=== PATIENT | male | born 1960 | race Caucasian/White ===

== ENCOUNTER 2023-02-08 15:33 | Outpatient (OUT) | payer OTHER, SELFPAY | END 2023-02-08 15:34 | disposition home or self-care (01) | LOC: SLEEP 15:33 | PROVIDERS: PCP Family Medicine; Visit Provider Family Medicine | DX: G47.33 Obstructive sleep apnea (adult) (pediatric) (principal); G47.11 Idiopathic hypersomnia with long sleep time | CPT/HCPCS: 95806 ==

== ENCOUNTER 2023-04-03 09:30 | Outpatient (OUT) | payer OTHER, SELFPAY ==
[2023-04-03 09:47] LABS: Basophils Absolute Auto 0.1 10^3/uL (0.0-0.1); Eosinophils Absolute Auto 0.2 10^3/uL (0.0-0.7); Eosinophils Percent Auto 2.6 % (0.9-7.0); Hematocrit 45.1 % (42.0-54.0); Hemoglobin 15.3 g/dL (14.0-18.0); Immature Granulocytes Abs Auto 0.04 10^3/uL (0.00-0.03); Immature Granulocytes Pct Auto 0.5 % (0.0-0.5); Lymphocytes Absolute Auto 1.5 10^3/uL (1.2-3.8); Lymphocytes Percent Auto 20.2 % (20.5-60.0); Mean Corpuscular HGB Conc 33.9 g/dL (29.9-35.2); Mean Corpuscular Hemoglobin 31.3 pg (25.9-34.0); Mean Corpuscular Volume 92.2 fL (80.0-94.0); Mean Platelet Volume 8.9 fL (9.5-13.5); Monocytes Absolute Auto 0.9 10^3/uL (0.3-0.8); Monocytes Percent Auto 11.5 % (1.7-12.0); Neutrophils Absolute Auto 4.7 10^3/uL (1.4-6.5); Neutrophils Percent Auto 64.2 % (43.0-75.0); Platelet Count 262 10^3/uL (150-450); Red Blood Count 4.89 10^6/uL (4.70-6.10); Red Cell Distribution Width 13.1 % (11.0-15.0); White Blood Count 7.4 10^3/uL (4.0-11.0)
[2023-04-03 11:24] LABS: Prostate Specific Antigen Scrn 0.16 ng/mL (<=4.00)
[2023-04-04 12:09] LABS: Testosterone 700 ng/dL (264-916)
== END 2023-04-03 09:31 | disposition home or self-care (01) ==
LOC: LAB 09:31
PROVIDERS: PCP Family Medicine; Visit Provider Urology
DX: E29.1 Testicular hypofunction (principal); D64.9 Anemia, unspecified
CPT/HCPCS: 36415; 84403; 85025; G0103

== ENCOUNTER 2023-09-25 06:35 | Outpatient (OUT) | payer OTHER, SELFPAY ==
--- OUTSIDE RECORDS SUMMARY | 2023-09-25 06:38 | XMS_ITS | CCD ---
Author Organization [facility] Care Team Providers Care Estate Attorney Name Role Phone LAITH DICKERSON Primary Care Physician [phone] Rani Fraga Unavailable WELLS ., DR BOYER Attending Unavailable WELLS ., DR BOYER Consulting Unavailable FURLONG, DR LAITH Hall Primary Care Unavailable WELLS ., DR BOYER Admitting Unavailable WELLS ., DR BOYER Attending Unavailable FURLONG, DR LAITH Hall Primary Care Unavailable WELLS ., DR BOYER Consulting Unavailable WELLS ., DR BOYER Admitting Unavailable WELLS ., DR BOYRE Attending Unavailable WELLS ., DR BOYER Consulting Unavailable FURLONG, DR LAITH Hall Primary Care Unavailable WELLS ., DR BOYER Admitting Unavailable WELLS ., DR BOYER Attending Unavailable WELLS ., DR BOYER Consulting Unavailable FURLONG, DR LAITH Hall Primary Care Unavailable WELLS ., DR BOYER Admitting Unavailable FURLONG, DR LAITH Hall Admitting Unavailable FURLONG, DR LAITH Hall Attending Unavailable FURLONG, DR LAITH Hall Consulting Unavailable FURLONG, DR LAITH Hall Primary Care Unavailable Furlong DO, Laith Hall Primary Care Provider WELLS, Syed R Attending Unavailable WELLS, Syed R Attending Unavailable WELLS, Syed R Attending Unavailable WELLS, Syed Sinclair Admitting Unavailable WELLS, Syed Sinclair Attending Unavailable WELLS, Syed R Attending Unavailable WELLS, Syed R Attending Unavailable WELLS, ySed R Attending Unavailable WELLS, Syed R Attending Unavailable WELLS, Syed R Attending Unavailable WELLS, Syed R Attending Unavailable WELLS, Syed R Attending Unavailable WELLS, Syed R Attending Unavailable WELLS, Syed R Attending Unavailable WELLS, Syed R Attending Unavailable WELLS, Syed R Attending Unavailable WELLS, Syed R Attending Unavailable WELLS, Syed R Attending Unavailable Allergies Allergy Classification Reported Allergen(s) Allergy Type Date of Onset Reaction(s) Facility (20 sources) levoFLOXacin; Translations: [levofloxacin] Drug Allergy 4 muscle cramps, Other (See Comments) [facility] (1 source) levoFLOXacin Drug Allergy 1 [facility] Medications Current Medications Medication Drug Class(es) Dates Sig (Normalized) Sig (Original) acyclovir 400 mg oral tablet (3 sources) Herpesvirus Nucleoside Analog DNA Polymerase Inhibitor, Herpes Simplex Virus Nucleoside Analog DNA Polymerase Inhibitor, Herpes Zoster Virus Nucleoside Analog DNA Polymerase Inhibitor Start: 08-08-2022 End: 05-04-2023 acyclovir (ZOVIRAX) 400 mg tablet TAKE 1 TABLET TWICE A DAY 180 tablet 1 05/04/2023 Active Acyclovir Active [id number] 200 actuat albuterol 0.09 mg/actuat metered dose inhaler (2 sources) beta2-Adrenergic Agonist Start: 06-01-2022 take 2 puff(s) by mouth four times daily albuterol (PROVENTIL HFA;VENTOLIN HFA) 90 mcg/actuation inhaler inhale 2 puffs by mouth and INTO THE LUNGS four times a day if needed 0 06/01/2022 Active Start: 06-01-2022 take 2 puff(s) by in halation four times daily as needed Albuterol Sulfate HFA 108 (90 Base) MCG/ACT 2 puffs Inhalation 4 times a day prn May, Active Albuterol (Eqv-ProAir HFA) 90 mcg/inh inhalation aerosol (6 sources) Start: 09-05-2022 Albuterol (Eqv-ProAir HFA) 90 mcg/inh inhalation aerosol Refill(s) 0 Start Date: 09/05/22 Status: Ordered amLODIPine 10 mg oral tablet (20 sources) Dihydropyridine Calcium Channel Preston Start: 02-20-2019 take 1 tablet by mouth once daily amLODIPine 10 mg Tab 10 mg = 1 tab(s), Oral, Daily, High blood pressure Start Date: 02/20/19 Status: Ordered amLODIPine Besyl ate Active atorvastatin 20 mg oral tablet (20 sources) HMG-CoA Reductase Inhibitor Start: 02-20-2019 take 1 tablet by mouth once daily atorvastatin 20 mg Tab 20 mg = 1 tab(s), Oral, Daily, High cholesterol Start Date: 02/20/19 Status: Ordered Fiber Tab (19 sources) Start: 10-03-2018 take 1 tablet by mouth twice daily Fiber Tabs 1 tbs, Oral, BID, metamucil, Refills(s) 0, Constipation Start Date: 10/03/18 Status: Ordered cefuroxime 500 mg oral tablet (20 sources) Cephalosporin Antibacterial Start: 02-20-2019 take 1 tablet by mouth once daily cefuroxime 500 mg oral tablet 500 mg = 1 tab(s), Oral, Daily Start Date: 02/20/19 Status: Ordered Depo-Testosterone 200 mg/mL intramuscular solution (1 source) Start: 02-08-2021 inject 450 mg by intramuscular injection every four months Depo-Testosterone 200 mg/mL intramuscular solution 450 mg, IntraMuscular, q4wk, Dispense 3 month supply, # 10 mL, Refills(s) 3, Pharmacy: [facility], 177, cm, 10/16/20 9:03:00 EDT, Height/Length Dosing, 117, kg, 10/16/20 9:03:00 EDT, Weight Dosing Start Date: 02/08/21 Status: Ordered dicyclomine hydrochloride 20 mg oral tablet (20 sources) Anticholinergic Start: 02-20-2019 take 1 tablet by mouth twice daily dicyclomine 20 mg Tab 20 mg = 1 tab(s), Oral, BID, Other (see comment) Start Date: 02/20/19 Status: Ordered dutasteride 0.5 mg oral capsule (1 source) 5-alpha Reductase Inhibitor take 1 capsule by mouth in the morning dutasteride (AVODART) 0.5 mg capsule Take 1 capsule (0.5 mg total) by mouth in the morning. 0 Active [id number] 0.3 ml EPINEPHrine 1 mg/ml auto-injector (1 source) alpha-Adrenergic Agonist, beta-Adrenergic Agonist, Catecholamine EPINEPHrine (EPIPEN) 0.3 mg/0.3 mL auto-injector epinephrine 0.3 mg/0.3 mL injection, auto-injector 0 Active esomeprazole 40 mg delayed release oral capsule (20 sources) Proton Pump Inhibitor Start: 03-17-2023 esomeprazole (NexIUM) 40 mg capsule Indications: Gastroesophageal reflux disease without esophagitis TAKE 1 CAPSULE DAILY 90 capsule 1 03/17/2023 Active Start: 11-29-2013 take 40 mg by mouth once daily Nexium 40 mg, Oral, Daily, Refills(s) 0, Control of stomach acid Start Date: 11/29/13 Status: Ordered NexIUM 40 MG 1 d aily Active ferrous sulfate 325 mg delayed release oral tablet (20 sources) Start: 02-20-2019 take 1 tablet by mouth twice daily ferrous sulfate 325 mg oral enteric coated tablet 325 mg = 1 tab(s), Oral, BID, Anemia Start Date: 02/20/19 Status: Ordered Ferrous Sulfate 325 MG 1 daily Active Fiber (1 source) Start: 10-03-2018 take 1 tablet by mouth twice daily Fiber Tabs 1 tbs, Oral, BID, metamucil, Refills(s) 0, Constipation Start Date: 10/03/18 Status: Ordered finasteride 5 mg oral tablet (20 sources) 5-alpha Reductase Inhibitor Start: 09-28-2021 take 1 tablet by mouth once daily finasteride 5 mg Tab 5 mg = 1 tab(s), Oral, Daily, # 90 tab(s), Refills(s) 3, Pharmacy: [facility], 177, cm, 09/05/22 15:39:00 EDT, Height/Length Dosing, 109, kg, 09/05/22 15:39:00 EDT, Weight Dosing Start Date: 09/27/22 Status: Ordered Start: 09-10-2021 take 1 tablet by bibi th once daily finasteride 5 mg Tab 5 mg = 1 tab(s), Oral, Daily, # 90 tab(s), Refills(s) 3 Start Date: 09/10/21 Status: Ordered Finasteride Acti ve Fish Oils (20 sources) Start: 10-03-2018 take 1000 mg by mouth once daily Fish Oil 1,000 mg, Oral, Daily, Refill(s) 0, Prophylaxis Start Date: 10/03/18 Status: Ordered Flonase 0.05 mg/inh [place] (1 source) Start: 03-06-2015 Flonase 0.05 m g/inh [place] 2 spray(s), Nasal, Daily, Refill(s) 0, Sinus symptoms Start Date: 03/06/15 Status: Ordered fluocinolone acetonide 0.1 mg/ml topical oil (1 source) Corticosteroid Start: 10-25-2022 fluocinolone 0 .01 % oil Indications: Eczema of scalp Apply 1 application. topically in the morning and 1 application. before bedtime. 118.28 mL 1 10/25/2022 Active fluticasone propionate 0.05 mg/actuat metered dose nasal spray (20 sources) Corticosteroid Start: 08-22-2022 take 2 spray(s) nasal route once daily fluticasone propionate (FLONASE) 50 mcg/actuation nasal spray USE 2 SPRAYS NASALLY DAILY 48 g 3 08/22/2022 Active Start: 03-06-2015 Flonase 0.05 m g/inh [place] 2 spray(s), Nasal, Daily, Refill(s) 0, Sinus symptoms Start Date: 03/06/15 Status: Ordered Flonase Active hydroCHLOROthiazide 12.5 mg / lisinopril 20 mg oral tablet (20 sources) Thiazide Diuretic, Angiotensin Converting Enzyme Inhibitor Start: 11-29-2013 take 1 tablet by mouth once daily hydrochlorothiazide-lisinopril 12.5 mg-20 mg Tab 1 tab(s), Oral, Daily, Refill(s) 0, High blood pressure Start Date: 11/29/13 Status: Ordered Lisinopril-hydro CHLOROthiazide Active lisinopril 20 mg oral tablet (8 sources) Angiotensin Converting Enzyme Inhibitor Start: 05-04-2023 lisinopriL (PRINIVIL,ZESTRIL) 20 mg tablet TAKE 1 TABLET DAILY (TAKE WITH LISINOPRIL/HCTZ 20/12.5 MG DAILY) 90 tablet 1 05/04/2023 Active Start: 08-08-2022 End: 05-04-2023 lisinopril 20 mg Tab Refills (s) 0 Start Date: 09/05/22 Status: Ordered 24 hr metoprolol succinate 25 mg extended release oral tablet (20 sources) beta-Adrenergic Preston Start: 03-10-2023 metopr olol succinate XL (TOPROL XL) 25 mg 24 hr tablet TAKE 1 TABLET DAILY 90 tablet 3 03/10/2023 Active Start: 02-20-2019 take 1 tablet by bibi th once daily Metoprolol succinate 25 mg ER Tablet 25 mg, Oral, Daily, High blood pressure Start Date: 02/20/19 Status: Ordered Start: 02-20-2019 take 1 tablet by bibi th once daily Metoprolol succinate 25 mg ER Tablet 25 mg, Oral, Daily, High blood pressure Start Date: 02/20/19 Status: Ordered 24 hr mirabegron 50 mg extended release oral tablet (8 sources) beta3-Adrenergic Agonist Start: 02-21-2022 take 1 tablet by mouth once daily Myrbetriq 50 mg oral tablet, extended release 50 mg = 1 tab(s), Oral, Daily, # 90 tab(s), Refills(s) 3, Pharmacy: [facility], 177, cm, 02/21/22 16:00:00 EST, Height/Length Dosing, 109, kg, 02/21/22 16:00:00 EST, Weight Dosing Start Date: 02/21/22 Status: Ordered Start: 02-21-2022 take 1 tablet by bibi th every twenty-four hours mirabegron (MYRBETRIQ) 50 mg tablet extended release 24 hr Take 1 tablet (50 mg total) by mouth. 0 02/21/2022 Active multivitamin capsule (1 source) multivitamin capsule daily. 0 Active naproxen 500 mg oral tablet (20 sources) Nonsteroidal Anti-inflammatory Drug Start: 019 take 1 tablet by mouth once daily naproxen 500 mg Tab 500 mg = 1 tab(s), Oral, Daily, Inflammation Start Date: 02/20/19 Status: Ordered oxybutynin chloride 5 mg oral tablet (12 sources) Cholinergic Muscarinic Antagonist Start: 022 take 1 tablet by mouth at bedtime as needed oxybutynin 5 mg Tab 5 mg = 1 tab(s), Oral, Bedtime, PRN for urinary discomfort, # 30 tab(s), Refills(s) 6, Pharmacy: [facility], 177, cm, 04/30/21 8:39:00 EST, Height/Length Dosing, 117.2, kg, 04/30/21 8:39:00 EST, Weight Dosing Start Date: 04/30/21 Status: Ordered pimecrolimus 10 mg/ml topical cream (1 source) Calcineurin Inhibitor Immunosuppressant Start: 022 pimecrolimus (ELIDEL) 1 % cream Indications: Eczema, unspecified type Apply 1 application topically in the morning and 1 application before bedtime. 100 g 1 03/10/2022 Active potassium chloride 10 meq extended release oral tablet (20 sources) Start: 023 potassium chloride (K-TAB,KLOR-CON) 10 MEQ CR tablet TAKE 1 TABLET DAILY 90 tablet 3 03/13/2023 Active Start: 02-20-2019 take 1 capsule by [facility] once daily potassium chloride 10 mEq Cap-ER 10 mEq = 1 cap(s), Oral, Daily, Prophylaxis Start Date: 02/20/19 Status: Ordered Start: 02-20-2019 take 1 capsule by [facility] once daily potassium chloride 10 mEq Cap-ER 10 mEq = 1 cap(s), Oral, Daily, Prophylaxis Start Date: 02/20/19 Status: Ordered predniSONE 20 mg oral tablet (2 sources) Start: 06-01-2022 take 1 tablet by mouth in the morning, then take 1 tablet by mouth at bedtime predniSONE (DELTASONE) 20 mg tablet Take 1 tablet (20 mg total) by mouth in the morning and 1 tablet (20 mg total) before bedtime. 0 06/01/2022 Active Rapaflo unknown (1 source) tamsulosin hydrochloride 0.4 mg oral capsule (20 sources) alpha-Adrenerg ic Preston Start: 07-19-2021 take 1 capsule by mouth once daily tamsulosin 0.4 mg Cap 0.4 mg = 1 cap(s), Oral, Daily, # 90 cap(s), Refills(s) 3, Pharmacy: [facility], 177, cm, 09/05/22 15:39:00 EDT, Height/Length Dosing, 109, kg, 09/05/22 15:39:00 EDT, Weight Dosing Start Date: 10/13/22 Status: Ordered Tamsulosin HCl A ctive testosterone cypionate 200 mg/ml injectable solution (20 sources) Androgen Start: 04-24-2023 Depo-Testoster one 200 mg/mL intramuscular solution 350 mg, IntraMuscular, q4wk, # 10 mL, Refills(s) 5, Pharmacy: [facility], 177, cm, 04/24/23 15:56:00 EST, Height/Length Dosing, 109, kg, 04/24/23 15:56:00 EST, Weight Dosing Start Date: 04/24/23 Status: Ordered Start: 09-05-2022 Depo-Testoster one 200 mg/mL intramuscular solution 400 mg, IntraMuscular, q4wk, # 10 mL, Refills(s) 5, Pharmacy: [facility], 177, cm, 09/05/22 15:39:00 EDT, Height/Length Dosing, 109, kg, 09/05/22 15:39:00 EDT, Weight Dosing Start Date: 09/05/22 Status: Ordered Start: 07-22-2022 inject 350 mg by int ramuscular injection every four months Depo-Testosterone 200 mg/mL intramuscular solution 350 mg, IntraMuscular, q4wk, Dispense 3 month supply, # 10 mL, Refills(s) 2, Pharmacy: [facility], 177, cm, 02/21/22 16:00:00 EST, Height/Length Dosing, 109, kg, 02/21/22 16:00:00 EST, Weight Dosing Start Date: 07/22/22 Status: Ordered Start: 04-25-2022 inject 350 mg by int ramuscular injection every four months Depo-Testosterone 200 mg/mL intramuscular solution 350 mg, IntraMuscular, q4wk, Dispense 3 month supply, # 10 mL, Refills(s) 1, Pharmacy: [facility], 177, cm, 02/21/22 16:00:00 EST, Height/Length Dosing, 109, kg, 02/21/22 16:00:00 EST, Weight Dosing Start Date: 04/25/22 Status: Ordered Start: 11-01-2021 testosterone c ypionate (DEPO-TESTOSTERONE) 200 mg/mL injection Inject 1.8 mL (360 mg total) into the appropriate muscle. 0 11/01/2021 Active Start: 11-01-2021 inject 350 mg by int ramuscular injection every four months Depo-Testosterone 200 mg/mL intramuscular solution 350 mg, IntraMuscular, q4wk, Dispense 3 month supply, # 10 mL, Refills(s) 1, Pharmacy: [facility], 177, cm, 09/10/21 8:12:00 EDT, Height/Length Dosing, 117.2, kg, 09/10/21 8:12:00 EDT, Weight Dosing Start Date: 11/01/21 Status: Ordered Start: 02-08-2021 inject 450 mg by int ramuscular injection every four months Depo-Testosterone 200 mg/mL intramuscular solution 450 mg, IntraMuscular, q4wk, Dispense 3 month supply, # 10 mL, Refills(s) 3, Pharmacy: [facility], 177, cm, 10/16/20 9:03:00 EDT, Height/Length Dosing, 117, kg, 10/16/20 9:03:00 EDT, Weight Dosing Start Date: 02/08/21 Status: Ordered Testosterone Cyp ionate 500MG Injection q 3 weeks Active Viagra unknown (1 source) Vitamin D-3 1000MG (1 source) Vitamin D-3 1000 MG 1 daily Active Zocor unknown (1 source) Completed/Discontinued Medications Medication Drug Class(es) Dates Sig (Normalized) Sig (Original) cholecalciferol 0.125 mg oral tablet (2 sources) Vitamin D Start: 11-29-2013 take 1 tablet by mouth once daily Vitamin D3 5000 intl units oral tablet 5,000 International_Uni t = 1 tab(s), Oral, Daily, Refills(s) 0, Prophylaxis Start Date: 11/29/13 Status: Ordered cholecalciferol, vitamin D3, 2,000 units tablet daily. 0 Active tadalafil 20 mg oral tablet (20 sources) Phosphodiesterase 5 Inhibitor Start: 05-28-2021 tadalafil 20 mg Tab 20 mg = 1 tab(s), Oral, As Directed, PRN sexual activity, Take one tab prior to sexual activity. Do not exceed 20mg in 24hrs., # 30 tab(s), Refills(s) 6, Pharmacy: [id number], 177, cm, 04/24/23 15:56:00 EST, Height/Length Dosing, 109, kg, 04/24/23 15:56:00 EST, Weight Dosing Start Date: 04/24/23 Status: Ordered Start: 05-28-2021 take 1 tablet by bibi th once daily tadalafil 20 mg Tab 20 mg = 1 tab(s), Oral, Daily, # 30 tab(s), Refills(s) 6, [facility], 177, cm, 04/30/21 8:39:00 EST, Height/Length Dosing, 117.2, kg, 04/30/21 8:39:00 EST, Weight Dosing Start Date: 05/28/21 Status: Ordered Vitamin D3 5000 intl units oral tablet (19 sources) Start: 11-29-2013 take 1 tablet by mouth once daily Vitamin D3 5000 intl units oral tablet 5,000 International_Unit = 1 tab(s), Oral, Daily, Refills(s) 0, Prophylaxis Start Date: 11/29/13 Status: Ordered Problems Active Problems Problem Classification Problem Date Documented Date Episodic/Chronic Anxiety disorders (1 source) Anxiety state; Translations: [Generalized anxiety disorder] Onset: 09-20-19 18 03-08-2022 Chronic Chronic obstructive pulmonary disease and bronchiectasis (1 source) Bronchitis, not specified as acute or chronic Episodic Deficiency and other anemia (20 sources) Anemia; Translations: [Anemia, unspecified] Onset: 03-13-2002-20-2019 Episodic Disorders of lipid metabolism (20 sources) Hyperlipidemia; Translations: [Hyperlipidemia, unspecified] Onset: 04-04-2001-04-2019 Chronic Esophageal disorders (20 sources) Gastroesophageal reflux disease; Translations: [Gastro-esophageal reflux disease without esophagitis] Onset: 04-04-2002-20-2019 Chronic Essential hypertension (20 sources) Hypertensive disorder; Translations: [Essential (primary) hypertension] Onset: 04-04-20 17 03-06-2015 Chronic Gastrointestinal hemorrhage (1 source) Rectal hemorrhage; Translations: [Rectal Bleeding] Episodic Genitourinary symptoms and ill-defined conditions (20 sources) Nocturia; Translations: [Nocturia] Onset: 09-11-19 Episodic Hyperplasia of prostate (20 sources) Benign prostatic hypertrophy with outflow obstruction; Translations: [Benign prostatic hyperplasia with lower urinary tract symptoms] Onset: 04-04-20 Chronic Joint disorders and dislocations; trauma-related (20 sources) Tear of medial meniscus of knee; Translations: [Other tear of medial meniscus, current injury, unspecified knee, initial encounter] Onset: 01-24-2002-20-2019 Episodic Other diseases of kidney and ureters (1 source) Urinary tract obstruction; Translations: [Other obstructive and reflux uropathy] Onset: 09-11-19 Episodic Other endocrine disorders (16 sources) Testicular hypofunction; Translations: [Testicular hypofunction] Onset: 09-11-19 Chronic Other endocrine disorders (20 sources) Male hypogonadism; Translations: [Testicular hypofunction] Onset: 03-08-20 22 11-12-2018 Chronic Other endocrine disorders (4 sources) Testicular hypofunction; Translations: [TESTICULAR HYPOFUNCTION] Onset: 08-23-19 Chronic Other gastrointestinal disorders (1 source) Irritable bowel syndrome with diarrhea; Translations: [Irritable bowel syndrome with diarrhea] Onset: 09-20-19 18 03-08-2022 Chronic Other male genital disorders (3 sources) Male erectile dysfunction, unspecified; Translations: [Erectile dysfunction] Onset: 09-11-19 Chronic Other male genital disorders (20 sources) Impotence of organic origin 11-12-2018 Chronic Other male genital disorders (1 source) Secondary erectile dysfunction; Translations: [Male erectile dysfunction, unspecified] Onset: 03-08-2003-08-2022 Chronic Other nutritional; endocrine; and metabolic disorders (20 sources) Body mass index 30+ - obesity 03-25-2019 Chronic Other nutritional; endocrine; and metabolic disorders (20 sources) History of hypercholesterolemia 03-06-2015 Episodic Other upper respiratory infections (1 source) Chronic sinusitis; Translations: [Chronic sinusitis, unspecified] Onset: 04-04-20 17 03-08-2022 Chronic Spondylosis; intervertebral disc disorders; other back problems (1 source) Annular tear of lumbar disc; Translations: [Other intervertebral disc degeneration, lumbar region] Onset: 11-19-19 14 03-08-2022 Chronic Unclassified (20 sources) Sebaceous cyst of skin 03-25-2019 Past or Other Problems Problem Classification Problem Date Documented Da te Episodic/Chronic Allergic reactions (2 sources) Eczema; Translations: [Dermatitis, unspecified] Onset: 03-08-2022 03-08-2022 Episodic Deficiency and other anemia (1 source) Iron deficiency anemia; Translations: [Iron deficiency anemia, unspecified] Onset: 10-15-2018 03-08-2022 Episodic Fluid and electrolyte disorders (2 sources) Drug-induced hypokalemia; Translations: [Hypokalemia] Onset: 04-25-2019 03-08-2022 Episodic Mood disorders (1 source) Mood disorders Onset: 03-13-2023 03-13-2023 Other liver diseases (1 source) Elevated liver enzymes level; Translations: [Abnormal levels of other serum enzymes] Onset: 06-23-2020 03-08-2022 Episodic Other male genital disorders (20 sources) H/O: male genital disorder Resolved: 11-12-2018 11-12-2018 Episodic Other nutritional; endocrine; and metabolic disorders (20 sources) Obesity; Translations: [Obesity, unspecified] Onset: 09-19-2017 Resolved: 12-02-2013 11-12-2018 Chronic Other screening for suspected conditions (not mental disorders or infectious disease) (20 sources) Decreased testosterone level ; Translations: [Encounter for screening for malignant neoplasm of prostate] Onset: 04-04-2017 Resolved: 03-06-2015 11-12-2018 Episodic Other skin disorders (1 source) Folliculitis; Translations: [Follicular disorder, unspecified] Onset: 04-04-2017 03-08-2022 Episodic Other skin disorders (1 source) Sebaceous cyst of skin; Translations: [Sebaceous cyst] Onset: 03-08-2022 03-08-2022 Episodic Spondylosis; intervertebral disc disorders; other back problems (1 source) Chronic sacroiliac joint pain; Translations: [Sacrococcygeal disorders, not elsewhere classified] Onset: 11-18-2013 03-08-2022 Episodic Results Test Name Value Interpretation Reference Range Facil ity Ambulatory Visit Summaryon 0 07-17-2023 Ambulatory Visit Summary MATT YOUNG :1960 Visit Date:07/17/2023 Ambulatory Visit Instructions Your Diagnosis Hypogonadism male Your Care Team Attending Physician - Syed WELLS MD Primary Care Physician - LAITH DICKERSON DO This Is Your Medications List amlodipine (amLODIPine 10 mg Tab) atorvastatin (atorvastatin 20 mg Tab) cefuroxime (cefuroxime 500 mg oral tablet) cholecalciferol (Vitamin D3 5000 intl units oral tablet) dicyclomine (dicyclomine 20 mg Tab) esomeprazole (Nexium) ferrous sulfate (ferrous sulfate 325 mg oral enteric coated tablet) finasteride (finasteride 5 mg Tab) fluticasone nasal (Flonase 0.05 mg/inh [place]) hydrochlorothiazide -lisinopril (hydrochlorothiazid e-lisinopril 12.5 mg-20 mg Tab) metoprolol (Metoprolol succinate 25 mg ER Tablet) naproxen (naproxen 500 mg Tab) omega-3 polyunsaturated fatty acids (Fish Oil) polycarbophil (Fiber Tabs) potassium chloride (potassium chloride 10 mEq Cap-ER) tadalafil (tadalafil 20 mg Tab) tamsulosin (tamsulosin 0.4 mg Cap) testosterone (Depo-Testosterone 200 mg/mL intramuscular solution) Procedures Performed Excision of cyst (03/29/2019), Arthroscopy of knee (03/08/2019), Arthroscopy of knee (2018), Cystoscopy (08/16/2016), Repair of umbilical hernia (03/2015), Appendectomy, Colonoscopy, lacerated tendon left wrist, Urodynamics. What to do next Scheduled Follow-Up Appointments Monday 3:00 PM EDT With: Where: [facility] Invalid Interpretation Code [address] [place] [address] [place] [address]- \.br\ Monday 3:00 PM EDT \.br\ With: TAMMY RUDOLPH, Syed Sinclair\.br\ Where: [facility] Provider Letteron 07-17-2023 Provider Letter July 17, [address] [id number] : 1960 To Whom It May Concern, Please excuse above patient from work for medical appointments. Date: From: 07/18/2023 To: 07/17/2024 Restrictions: None Comments: Patient will need to be excused to get monthly injections and lab work 07/18/2023 through 07/17/2024 Sincerely, Syed RaygozaCJos Faxed to Reymundo Benites at [phone] [facility] Provider Letter July 17, [address] [id number] : 1960 To Whom It May Concern, Please excuse above patient from work. Date of appointment: From: 07/17/2023 To: _ May Return to Work On:07/18/2023 Restrictions: none Comments: Any Questions, feel free to call our office. Sincerely, [facility] [address], [place] [address] Normal [facility] Ambulatory Visit Summaryon 0 06-20-2023 Ambulatory Visit Summary MATT YOUNG :1960 Visit Date:06/20/2023 Ambulatory Visit Instructions Your Diagnosis Hypogonadism male Your Care Team Attending Physician - TAMMY RUDOLPH, Syed Sinclair Primary Care Physician - LAITH DICKERSON DO This Is Your Medications List amlodipine (amLODIPine 10 mg Tab) atorvastatin (atorvastatin 20 mg Tab) cefuroxime (cefuroxime 500 mg oral tablet) cholecalciferol (Vitamin D3 5000 intl units oral tablet) dicyclomine (dicyclomine 20 mg Tab) esomeprazole (Nexium) ferrous sulfate (ferrous sulfate 325 mg oral enteric coated tablet) finasteride (finasteride 5 mg Tab) fluticasone nasal (Flonase 0.05 mg/inh [place]) hydrochlorothiazide -lisinopril (hydrochlorothiazid e-lisinopril 12.5 mg-20 mg Tab) metoprolol (Metoprolol succinate 25 mg ER Tablet) naproxen (naproxen 500 mg Tab) omega-3 polyunsaturated fatty acids (Fish Oil) polycarbophil (Fiber Tabs) potassium chloride (potassium chloride 10 mEq Cap-ER) tadalafil (tadalafil 20 mg Tab) tamsulosin (tamsulosin 0.4 mg Cap) testosterone (Depo-Testosterone 200 mg/mL intramuscular solution) Procedures Performed Excision of cyst (03/29/2019), Arthroscopy of knee (03/08/2019), Arthroscopy of knee (2018), Cystoscopy (08/16/2016), Repair of umbilical hernia (03/2015), Appendectomy, Colonoscopy, lacerated tendon left wrist, Urodynamics. What to do next Scheduled Follow-Up Appointments Monday 3:00 PM EDT With: Where: [facility] Normal [address] [place] [address]- \.br\ Medications\.br\ What How Much When Instructions\.br\ Unchanged amlodipine (amLODIPine 10 mg Tab) 1 Tablets By Mouth Every day\.br\ Unchanged atorvastatin (atorvastatin 20 mg Tab) 1 Tablets By Mouth Every day\.br\ Unchanged cefuroxime (cefuroxime 500 mg oral tablet) 1 Tablets By Mouth Every day\.br\ Unchanged cholecalciferol (Vitamin D3 5000 intl units oral tablet) 1 Tablets By Mouth Every day\.br\ Unchanged dicyclomine (dicyclomine 20 mg Tab) 1 Tablets By Mouth 2 times a day\.br\ Unchanged esomeprazole (Nexium) 40 Milligram By Mouth Every day\.br\ Unchanged ferrous sulfate (ferrous sulfate 325 mg oral enteric coated tablet) 1 Tablets By Mouth 2 times a day\.br\ Unchanged finasteride (finasteride 5 mg Tab) 1 Tablets By Mouth Every day\.br\ Unchanged fluticasone nasal (Flonase 0.05 mg/ inh [place]) 2 Sprays Nasal Inhalation Every day\.br\ Unchanged hydrochlorothiazid e-lisinopril (hydrochlorothiazi de-lisinopril 12.5 mg-20 mg Tab) 1 Tablets By Mouth Every day\.br\ Unchanged metoprolol (Metoprolol succinate 25 mg ER Tablet) 25 Milligram By Mouth Every day\.br\ Unchanged naproxen (naproxen 500 mg Tab) 1 Tablets By Mouth Every day\.br\ Unchanged omega-3 polyunsaturated fatty acids (Fish Oil) 1,000 Milligram By Mouth Every day\.br\ Unchanged polycarbophil (Fiber Tabs) 1 tbs By Mouth 2 times a day metamucil \.br\ Unchanged potassium chloride (potassium chloride 10 mEq Cap-ER) 1 Capsules By Mouth Every day\.br\ Unchanged tadalafil (tadalafil 20 mg Tab) 1 Tablets By Mouth As Directed as needed for sexual activity Take one tab prior to sexual activity. Do not exceed 20mg in 24hrs. \.br\ Unchanged tamsulosin (tamsulosin 0.4 mg Cap) 1 Capsules By Mouth Every day\.br\ Unchanged testosterone (Depo-Testosterone 200 mg/ mL intramuscular solution) 350 Milligram Intramuscular Every 4 weeks\.br\ Medications and Immunizations Administered\.br\ Given\.br\ Depo-Testosterone 200 mg/mL intramuscular solution, 350 mg, IntraMuscular. For: Hypogonadism male\.br\ Allergies\.br\ Levaquin (attacked muscular system)\.br\ Problems\.br\ Ongoing - Any problem that you are currently receiving treatment for.\.br\ BMI 37.0-37.9, adult\.br\ BPH with urinary obstruction\.br\ ED (erectile dysfunction)\.br\ Hyperlipidemia\.br \ Hypogonadism male\.br\ Nocturia\.br\ Sebaceous cyst\.br\ Weak urine stream\.br\ Historical - Any problem that you are no longer receiving treatment for.\.br\ History of BPH\.br\ Low testosterone\.br\ Obesity 17-OCT-2013 12:37:00<$>\.br\ Patient Survey\.br\ You may receive a survey via text or e-mail asking about your office visit. Please share your experience with us by completing your survey. We appreciate your feedback and thank you for choosing us for your care.\.br\ \.br\ [facility] Provider Letteron 06-20-2023 Provider Letter June 20, 20[address]NG [address] [place] [id number] : 1960 To Whom It May Concern, Please excuse above patient from work. Date of appointment: From: _ To: _ May Return to Work On: 06/21/23 Restrictions: none Comments: Any questions, please call our office Sincerely, [facility] [address] [facility], [place] [address] [facility] Ambulatory Visit Summaryon 0 05-22-2023 Ambulatory Visit Summary MATT YOUNG :1960 Visit Date:05/22/2023 Ambulatory Visit Instructions Your Care Team Attending Physician - Syed WELLS MD Primary Care Physician - LAITH DICKERSON DO This Is Your Medications List amlodipine (amLODIPine 10 mg Tab) atorvastatin (atorvastatin 20 mg Tab) cefuroxime (cefuroxime 500 mg oral tablet) cholecalciferol (Vitamin D3 5000 intl units oral tablet) dicyclomine (dicyclomine 20 mg Tab) esomeprazole (Nexium) ferrous sulfate (ferrous sulfate 325 mg oral enteric coated tablet) finasteride (finasteride 5 mg Tab) fluticasone nasal (Flonase 0.05 mg/inh [place]) hydrochlorothiazide -lisinopril (hydrochlorothiazid e-lisinopril 12.5 mg-20 mg Tab) metoprolol (Metoprolol succinate 25 mg ER Tablet) naproxen (naproxen 500 mg Tab) omega-3 polyunsaturated fatty acids (Fish Oil) polycarbophil (Fiber Tabs) potassium chloride (potassium chloride 10 mEq Cap-ER) tadalafil (tadalafil 20 mg Tab) tamsulosin (tamsulosin 0.4 mg Cap) testosterone (Depo-Testosterone 200 mg/mL intramuscular solution) Procedures Performed Excision of cyst (03/29/2019), Arthroscopy of knee (03/08/2019), Arthroscopy of knee (2018), Cystoscopy (08/16/2016), Repair of umbilical hernia (03/2015), Appendectomy, Colonoscopy, lacerated tendon left wrist, Urodynamics. What to do next Scheduled Follow-Up Appointments Monday 2:45 PM EST With: Where: [facility] Normal [address] [place] [address]- \.br\ Medications\.br\ What How Much When Instructions\.br\ Unchanged amlodipine (amLODIPine 10 mg Tab) 1 Tablets By Mouth Every day\.br\ Unchanged atorvastatin (atorvastatin 20 mg Tab) 1 Tablets By Mouth Every day\.br\ Unchanged cefuroxime (cefuroxime 500 mg oral tablet) 1 Tablets By Mouth Every day\.br\ Unchanged cholecalciferol (Vitamin D3 5000 intl units oral tablet) 1 Tablets By Mouth Every day\.br\ Unchanged dicyclomine (dicyclomine 20 mg Tab) 1 Tablets By Mouth 2 times a day\.br\ Unchanged esomeprazole (Nexium) 40 Milligram By Mouth Every day\.br\ Unchanged ferrous sulfate (ferrous sulfate 325 mg oral enteric coated tablet) 1 Tablets By Mouth 2 times a day\.br\ Unchanged finasteride (finasteride 5 mg Tab) 1 Tablets By Mouth Every day\.br\ Unchanged fluticasone nasal (Flonase 0.05 mg/ inh [place]) 2 Sprays Nasal Inhalation Every day\.br\ Unchanged hydrochlorothiazid e-lisinopril (hydrochlorothiazi de-lisinopril 12.5 mg-20 mg Tab) 1 Tablets By Mouth Every day\.br\ Unchanged metoprolol (Metoprolol succinate 25 mg ER Tablet) 25 Milligram By Mouth Every day\.br\ Unchanged naproxen (naproxen 500 mg Tab) 1 Tablets By Mouth Every day\.br\ Unchanged omega-3 polyunsaturated fatty acids (Fish Oil) 1,000 Milligram By Mouth Every day\.br\ Unchanged polycarbophil (Fiber Tabs) 1 tbs By Mouth 2 times a day metamucil \.br\ Unchanged potassium chloride (potassium chloride 10 mEq Cap-ER) 1 Capsules By Mouth Every day\.br\ Unchanged tadalafil (tadalafil 20 mg Tab) 1 Tablets By Mouth As Directed as needed for sexual activity Take one tab prior to sexual activity. Do not exceed 20mg in 24hrs. \.br\ Unchanged tamsulosin (tamsulosin 0.4 mg Cap) 1 Capsules By Mouth Every day\.br\ Unchanged testosterone (Depo-Testosterone 200 mg/ mL intramuscular solution) 350 Milligram Intramuscular Every 4 weeks\.br\ Allergies\.br\ Levaquin (attacked muscular system)\.br\ Problems\.br\ Ongoing - Any problem that you are currently receiving treatment for.\.br\ BMI 37.0-37.9, adult\.br\ BPH with urinary obstruction\.br\ ED (erectile dysfunction)\.br\ Hyperlipidemia\.br \ Hypogonadism male\.br\ Nocturia\.br\ Sebaceous cyst\.br\ Weak urine stream\.br\ Historical - Any problem that you are no longer receiving treatment for.\.br\ History of BPH\.br\ Low testosterone\.br\ Obesity 17-OCT-2013 12:37:00<$>\.br\ Patient Survey\.br\ You may receive a survey via text or e-mail asking about your office visit. Please share your experience with us by completing your survey. We appreciate your feedback and thank you for choosing us for your care.\.br\ \.br\ [facility] Medication Consenton 024 Medication Consent [id number] [email or web address] [facility] Ambulatory Visit Summaryon 0 04-24-2023 Ambulatory Visit Summary MATT YOUNG :1960 Visit Date:04/24/2023 Ambulatory Visit Instructions Your Diagnosis Hypogonadism male BPH with urinary obstruction ED (erectile dysfunction) Nocturia Tests Performed Urnls Dip Stick Auto w/o Microscopy POC 62446 Your Care Team Attending Physician - Syed WELLS MD Primary Care Physician - LAITH DICKERSON DO This Is Your Medications List finasteride (finasteride 5 mg Tab) tadalafil (tadalafil 20 mg Tab) tamsulosin (tamsulosin 0.4 mg Cap) testosterone (Depo-Testosterone 200 mg/mL intramuscular solution) Contact prescribing physician if questions or concerns amlodipine (amLODIPine 10 mg Tab) atorvastatin (atorvastatin 20 mg Tab) cefuroxime (cefuroxime 500 mg oral tablet) cholecalciferol (Vitamin D3 5000 intl units oral tablet) dicyclomine (dicyclomine 20 mg Tab) esomeprazole (Nexium) ferrous sulfate (ferrous sulfate 325 mg oral enteric coated tablet) fluticasone nasal (Flonase 0.05 mg/inh [place]) hydrochlorothiazide -lisinopril (hydrochlorothiazid e-lisinopril 12.5 mg-20 mg Tab) metoprolol (Metoprolol succinate 25 mg ER Tablet) naproxen (naproxen 500 mg Tab) omega-3 polyunsaturated fatty acids (Fish Oil) polycarbophil (Fiber Tabs) potassium chloride (potassium chloride 10 mEq Cap-ER) Procedures Performed Excision of cyst (03/29/2019), Arthroscopy of knee (03/08/2019), Arthroscopy of knee (2018), Cystoscopy (08/16/2016), Repair of umbilical hernia (03/2015), Appendectomy, Colonoscopy, lacerated tendon left wrist, Urodynamics. Discharge Vitals Heart Rate (Peripheral) 68 Respiratory Rate 16 Blood Pressure 132/70 Height 177 cm Height 70 in Weight 109 kg Weight 239.8 lb BMI 34.79 What to do next Scheduled Follow-Up Appointments Monday 3:00 PM EST With: Where: [facility] Normal [address] [place] [address] [place] [address]- \.br\ You Need to Schedule the Following Appointments\.br\ Follow Up with TAMMY RUDOLPH, Syed Sinclair, URL When: \.br\ Comments:\.br\ 6 mos w/ T level\.br\ Where:\.br\ [facility] [address]\.br\ [place] [address]-\.br\ [phone]\.br\ Medications\.br\ What How Much When Instructions\.br\ Changed tadalafil (tadalafil 20 mg Tab) 1 Tablets By Mouth As Directed as needed for sexual activity Take one tab prior to sexual activity. Do not exceed 20mg in 24hrs. Pickup at [id number]\.br\ Changed testosterone (Depo-Testosterone 200 mg/ mL intramuscular solution) 350 Milligram Intramuscular Every 4 weeks Pickup at [facility]\.br\ Unchanged finasteride (finasteride 5 mg Tab) 1 Tablets By Mouth Every day\.br\ Unchanged tamsulosin (tamsulosin 0.4 mg Cap) 1 Capsules By Mouth Every day\.br\ Unchanged amlodipine (amLODIPine 10 mg Tab) 1 Tablets By Mouth Every day Contact prescribing physician if questions or concerns \.br\ Unchanged atorvastatin (atorvastatin 20 mg Tab) 1 Tablets By Mouth Every day Contact prescribing physician if questions or concerns \.br\ Unchanged cefuroxime (cefuroxime 500 mg oral tablet) 1 Tablets By Mouth Every day Contact prescribing physician if questions or concerns \.br\ Unchanged cholecalciferol (Vitamin D3 5000 intl units oral tablet) 1 Tablets By Mouth Every day Contact prescribing physician if questions or concerns \.br\ Unchanged dicyclomine (dicyclomine 20 mg Tab) 1 Tablets By Mouth 2 times a day Contact prescribing physician if questions or concerns \.br\ Unchanged esomeprazole (Nexium) 40 Milligram By Mouth Every day Contact prescribing physician if questions or concerns \.br\ Unchanged ferrous sulfate (ferrous sulfate 325 mg oral enteric coated tablet) 1 Tablets By Mouth 2 times a day Contact prescribing physician if questions or concerns \.br\ Unchanged fluticasone nasal (Flonase 0.05 mg/ inh [place]) 2 Sprays Nasal Inhalation Every day Contact prescribing physician if questions or concerns \.br\ Unchanged hydrochlorothiazid e-lisinopril (hydrochlorothiazi de-lisinopril 12.5 mg-20 mg Tab) 1 Tablets By Mouth Every day Contact prescribing physician if questions or concerns \.br\ Unchanged metoprolol (Metoprolol succinate 25 mg ER Tablet) 25 Milligram By Mouth Every day Contact prescribing physician if questions or concerns \.br\ Unchanged naproxen (naproxen 500 mg Tab) 1 Tablets By Mouth Every day Contact prescribing physician if questions or concerns \.br\ Unchanged omega-3 polyunsaturated fatty acids (Fish Oil) 1,000 Milligram By Mouth Every day Contact prescribing physician if questions or concerns \.br\ Unchanged polycarbophil (Fiber Tabs) 1 tbs By Mouth 2 times a day metamucil Contact prescribing physician if questions or concerns \.br\ Unchanged potassium chloride (potassium chloride 10 mEq Cap-ER) 1 Capsules By Mouth Every day Contact prescribing physician if questions or concerns \.br\ Pharmacy Information\.br\ [id number]: [address] [place], [place] [id number] [phone]\.br\ [facility]: [address] [place], [place] [id number] [phone]\.br\ Test Results\.br\ Urnls Dip Stick Auto w/o Microscopy POC 38049 (04/24/2023)\.br\ Bilirubin Urine Dipstick - Negative\.br\ Blood Urine Dipstick - Negative\.br\ Glucose Urine Dipstick - Negative\.br\ Ketones Urine Dipstick - Negative\.br\ Leukocytes Urine Dipstick - Negative\.br\ Nitrite Urine Dipstick - Negative\.br\ Protein Urine Dipstick - Negative\.br\ Specific [place] Urine Dipstick - 1.015\.br\ Urine Appearance Urine Dipstick - Clear\.br\ Urine Color Urine Dipstick - Yellow\.br\ Urobilinogen Urine Dipstick - Normal 0.2-1 EU/dl\.br\ pH Urine Dipstick - 6.5\.br\ Medications and Immunizations Administered\.br\ Given\.br\ Depo-Testosterone 200 mg/mL intramuscular solution, 350 mg, IntraMuscular. For:\.br\ Allergies\.br\ Levaquin (attacked muscular system)\.br\ Problems\.br\ Ongoing - Any problem that you are currently receiving treatment for.\.br\ BMI 37.0-37.9, adult\.br\ BPH with urinary obstruction\.br\ ED (erectile dysfunction)\.br\ Hyperlipidemia\.br \ Hypogonadism male\.br\ Nocturia\.br\ Sebaceous cyst\.br\ Weak urine stream\.br\ Historical - Any problem that you are no longer receiving treatment for.\.br\ History of BPH\.br\ Low testosterone\.br\ Obesity 17-OCT-2013 12:37:00<$>\.br\ Patient Survey\.br\ You may receive a survey via text or e-mail asking about your office visit. Please share your experience with us by completing your survey. We appreciate your feedback and thank you for choosing us for your care.\.br\ Education Materials\.br\ Hypogonadism, Male\.br\ \.br\ Male hypogonadism is a condition of having a level of testosterone that is lower than normal. Testosterone is a chemical, or hormone, that is made mainly in the testicles.\.br\ In boys, testosterone is responsible for the development of male characteristics during puberty. These include:\.br\ ? \.br\ Making the penis bigger.\.br\ ? \.br\ Growing and building the muscles.\.br\ ? \.br\ Growing facial hair.\.br\ ? \.br\ Deepening the voice.\.br\ In adult men, testosterone is responsible for maintaining:\.br\ ? \.br\ An interest in sex and the ability to have sex.\.br\ ? \.br\ Muscle mass.\.br\ ? \.br\ Sperm production.\.br\ ? \.br\ Red blood cell production.\.br\ ? \.br\ Bone strength.\.br\ Testosterone also gives men energy and a sense of well-being.\.br\ Testosterone normally decreases as men age and the testicles make less testosterone. Testosterone levels can vary from man to man. Not all men will have signs and symptoms of low testosterone. Weight, alcohol use, medicines, and certain medical conditions can affect a man's testosterone level.\.br\ What are the causes?\.br\ This condition is caused by:\.br\ ? \.br\ A natural decrease in testosterone that occurs as a man grows older. This is the main cause of this condition.\.br\ ? \.br\ Use of medicines, such as antidepressants, steroids, and opioids.\.br\ ? \.br\ Diseases and conditions that affect the testicles or the making of testosterone. These include:\.br\ ? \.br\ Injury or damage to the testicles from trauma, cancer, cancer treatment, or infection.\.br\ ? \.br\ Diabetes.\.br\ ? \.br\ Sleep apnea.\.br\ ? \.br\ Genetic conditions that men are born with.\.br\ ? \.br\ Disease of the pituitary gland. This gland is in the brain. It produces hormones.\.br\ ? \.br\ Obesity.\.br\ ? \.br\ Metabolic syndrome. This is a group of diseases that affect blood pressure, blood sugar, cholesterol, and belly fat.\.br\ ? \.br\ HIV or AIDS.\.br\ ? \.br\ Alcohol abuse.\.br\ ? \.br\ Kidney failure.\.br\ ? \.br\ Other long-term or chronic diseases.\.br\ What are the signs or symptoms?\.br\ Common symptoms of this condition include:\.br\ ? \.br\ Loss of interest in sex (low sex drive).\.br\ ? \.br\ Inability to have or maintain an erection (erectile dysfunction).\.br\ ? \.br\ Feeling tired (fatigue).\.br\ ? \.br\ Mood changes, like irritability or depression.\.br\ ? \.br\ Loss of muscle and body hair.\.br\ ? \.br\ Infertility.\.br\ ? \.br\ Large breasts.\.br\ ? \.br\ Weight gain (obesity).\.br\ How is this diagnosed?\.br\ Your health care provider shane hawley [facility] Patient Educationon 04-24-19 24 Patient Education Urology Hypogonadism, Male Male hypogonadism is a condition of having a level of testosterone that is lower than normal. Testosterone is a chemical, or hormone, that is made mainly in the testicles. In boys, testosterone is responsible for the development of male characteristics during puberty. These include: ? Making the penis bigger. ? Growing and building the muscles. ? Growing facial hair. ? Deepening the voice. In adult men, testosterone is responsible for maintaining: ? An interest in sex and the ability to have sex. ? Muscle mass. ? Sperm production. ? Red blood cell production. ? Bone strength. Testosterone also gives men energy and a sense of well-being. Testosterone normally decreases as men age and the testicles make less testosterone. Testosterone levels can vary from man to man. Not all men will have signs and symptoms of low testosterone. Weight, alcohol use, medicines, and certain medical conditions can affect a man's testosterone level. What are the causes? This condition is caused by: ? A natural decrease in testosterone that occurs as a man grows older. This is the main cause of this condition. ? Use of medicines, such as antidepressants, steroids, and opioids. ? Diseases and conditions that affect the testicles or the making of testosterone. These include: ? Injury or damage to the testicles from trauma, cancer, cancer treatment, or infection. ? Diabetes. ? Sleep apnea. ? Genetic conditions that men are born with. ? Disease of the pituitary gland. This gland is in the brain. It produces hormones. ? Obesity. ? Metabolic syndrome. This is a group of diseases that affect blood pressure, blood sugar, cholesterol, and belly fat. ? HIV or AIDS. ? Alcohol abuse. ? Kidney failure. ? Other long-term or chronic diseases. What are the signs or symptoms? Common symptoms of this condition include: ? Loss of interest in sex (low sex drive). ? Inability to have or maintain an erection (erectile dysfunction). ? Feeling tired (fatigue). ? Mood changes, like irritability or depression. ? Loss of muscle and body hair. ? Infertility. ? Large breasts. ? Weight gain (obesity). How is this diagnosed? Your health care provider can diagnose hypogonadism based on: ? Your signs and symptoms. ? A physical exam to check your testosterone levels. This includes blood tests. Testosterone levels can change throughout the day. Levels are highest in the morning. You may need to have repeat blood tests before getting a diagnosis of hypogonadism. Depending on your medical history and test results, your health care provider may also do other tests to find the cause of low testosterone. How is this treated? This condition is treated with testosterone replacement therapy. Testosterone can be given by: ? Injection or through pellets inserted under the skin. ? Gels or patches placed on the skin or in the mouth. Testosterone therapy is not for everyone. It has risks and side effects. Your health care provider will consider your medical history, your risk for prostate cancer, your age, and your symptoms before putting you on testosterone replacement therapy. Follow these instructions at home: ? Take pyec-skx-mvfunmc and prescription medicines only as told by your health care provider. ? Eat foods that are high in fiber, such as beans, whole grains, and fresh fruits and vegetables. Limit foods that are high in fat and processed sugars, such as fried or sweet foods. ? If you drink alcohol: ? Limit how much you have to 0?2 drinks a day. ? Know how much alcohol is in your drink. In the [place] one drink equals one 12 oz bottle of beer (355 mL), one 5 oz glass of wine (148 mL), or one 1? oz glass of hard liquor (44 mL). ? Return to your normal activities as told by your health care provider. Ask your health care provider what activities are safe for you. ? Keep all follow-up visits. This is important. Contact a health care provider if: ? You have any of the signs or symptoms of low testosterone. ? You have any side effects from testosterone therapy. Summary ? Male hypogonadism is a condition of having a level of testosterone that is lower than normal. ? The natural drop in testosterone production that occurs with age is the most common cause of this condition. ? Low testosterone can also be caused by many diseases and conditions that affect the testicles and the making of testosterone. ? This condition is treated with testosterone replacement therapy. ? There are risks and side effects of testosterone therapy. Your health care provider will consider your age, medical history, symptoms, and risks for prostate cancer before putting you on testosterone therapy. This information is not intended to replace advice given to you by your health care provider. Make sure you discuss any questions you have with your health care provider. Document Revised: 12/03/2020 Document (more content not included)... Normal [facility] Provider Letteron 04-24-2023 Provider Letter April 24, 2023 MATT SANTIAGOBIN [address] [place] [id number] : 1960 To Whom It May Concern, Please excuse above patient from work. Date of Appointment: From: 04/24/2023 To: _ May Return to Work On: 04/25/2023 Restrictions: none Comments: Any questions, please call our office Sincerely, [facility] [address] [place] [address] Corina [facility] Urology Office/Clinic Noteon 04-24-2023 Urology Office/Clinic Note Chief Complaint 6m Testosterone, PSA & CBC HPI Staff 7m noam Testosterone Level & CBC DX: Hypogonadism, BPH, Nocturia, ED & Anemia *Testosterone Injections were increased from 350mg to 400mg q4wks at time of last encounter. Myrbetriq therapy DC'd at time of last encounter. Continues Tadalafil 20mg PRN therapy 7 Finasteride & Tamsulosin therapy. Denies all urinary complaints at this time. Testosterone Level 04/03/23- 700 CBC 04/03/23 PSA 04/03/23- 0.16 History of Present Illness Tests reviewed: reviewed UA, T level, PSA, CBC I have reviewed the previous health record information and history for this patient from Dr. Wells. I have reviewed and verified the staff HPI to be accurate for this encounter. Review of Systems PHQ Score Initial Depression Screen Score: 0 SCORE ROS - Provider Constitutional: denies weight loss, denies hot flashes. Eyes: denies eye problems. Gastrointestinal: denies nausea, denies vomiting. Cardiovascular: denies chest pain or angina. Integumentary: no dryness Musculoskeletal: denies musculoskeletal symptoms. ENMT: denies otolaryngeal symptoms. Respiratory: no shortness of breath. Heme/Lymph: denies easy bleeding tendency, denies easy bruising tendency. Psychiatric: no confusion, no anxiety. Genitourinary: See HPI. Physical Exam Vitals & Measurements HR: 68(Peripheral) RR: 16 BP: 132/70 HT: 70 in HT: 177 cm WT: 109 kg WT: 239.8 lb BMI: 34.79 General Appearance: alert, no distress, well nourished, well developed male. Genitourinary: normal scrotum, normal testes, normal urethra, normal epididymis, normal vas deferens/spermatic cord. Flank Pain: none. Bladder: nonpalpable. Assessment/Plan 1. Hypogonadism male (E29.1: Testicular hypofunction) Testosterone (ref range 264-916): 08/31/21 - 615 02/07/22 - 715 08/22/22 - 287 (T inj increased to 350mg after reviewing this lab) 04/03/23 - 700 CBC: 02/23/22 - RBC 4.34 L. HGB 9.5 L. HCT 30.5. 04/03/23 - RBC 4.89. HGB 15.3. HCT 45.1. Receiving Testosterone IM 400 mg q4wks. Last Testosterone 400mg inj 03/20/23. Pt inquired about his giving T inj in the future, states his is an occupational therapist. States he will try to bring her to his next appt to learn proper injection. Discussed labs. Most recent T level is wnl but is normal-high. Advised pt higher T level increases risk for blood clotting. Recommended pt to decrease dosage of T inj. Pt received Testosterone IM 350 mg IO today. -Decrease Testosterone IM from 400mg q4wk to 350mg q4wk -T level in 6 mos 2. BPH with urinary obstruction (N40.1: Benign prostatic hyperplasia with lower urinary tract symptoms) PSA: 04/22/20 - <0.05 02/04/22 - <0.13 04/03/23 - 0.16 Taking Finasteride 5 mg qd and Flomax 0.4 mg qd. Denies any bothersome urinary habits at this time. UA today negative for blood and infection. Discussed PSA level. Remains stable and low. -Cont Finasteride and Tamsulosin 3. ED (erectile dysfunction) (N52.9: Male erectile dysfunction, unspecified) Taking Tadalafil 20mg prn. Refills sent to [facility], pt to use [facility]. 4. Nocturia (R35.1: Nocturia) Failed Myrbetriq due to no sx improvement. States he recently did a sleep study. Nocturia has improved since wearing a CPAP machine. Follow-up With When Contact Information TAMMY RUDOLPH, Syed Sinclair, URL [facility] [address], [place] [address]- [phone] Additional Instructions: 6 mos w/ T level Patient Education Hypogonadism, Male I, Radha Hess, personally scribed for Dr. Wells on 04/24/2023 16:50:19. . Documentation recorded by the scribe, Radha Hess, accurately reflects the services(s) I performed and decisions made by me. Authenticated by Dr. Wells on 04/24/2023 16:52:59. Problem List/Past Medical History Ongoing BMI 37.0-37.9, adult BPH with urinary obstruction ED (erectile dysfunction) Hyperlipidemia Hypogonadism male Nocturia Sebaceous cyst Weak urine stream Historical History of BPH Low testosterone Obesity 17-OCT-2013 12:37:00<$> Procedure/Surgical History Excision of cyst (03/29/2019), Arthroscopy of knee (03/08/2019), Arthroscopy of knee (2018), Cystoscopy (08/16/2016), Repair of umbilical hernia (03/2015), Appendectomy, Colonoscopy, lacerated tendon left wrist, Urodynamics. Medications amLODIPine 10 mg Tab, 10 mg= 1 tab(s), Oral, Daily atorvastatin 20 mg Tab, 20 mg= 1 tab(s), Oral, Daily cefuroxime 500 mg oral tablet, 500 mg= 1 tab(s), Oral, Daily Depo-Testosterone 200 mg/mL intramuscular solution, 350 mg, IntraMuscular, q4wk, 5 refills Depo-Testosterone 200 mg/mL intramuscular solution, 400 mg= 2 mL, IntraMuscular, Once dicyclomine 20 mg Tab, 20 mg= 1 tab(s), Oral, BID ferrous sulfate 325 mg oral enteric coated tablet, 325 mg= 1 tab(s), Oral, BID Fiber Tabs, 1 tbs, Oral, BID finasteride 5 mg Tab, 5 mg= 1 tab(s), Oral, Daily, 3 refills Fish Oil, 1000 mg, Oral, (more content not included)... Normal [facility] Comment on above: Result Comment: Elec tronically Signed By: Syed WELLS MD\.br\Date and Time Signed: 04/24/23 16:53 EST\.br\Electronically Co-Signed By: Radha Hess\Date and Time Co-Signed: 04/24/23 16:50 EST Lab Reportson 04-11-2023 Lab Reports [id number]#[id number] [facility] Lab Reports [id number] [facility] Provider Letteron 03-20-2023 Provider Letter March 20, [address] [place] [id number] : 1960 To Whom It May Concern, Please excuse above patient from work. Date of Appointment: From: 03/20/2023 To: _ May Return to Work On:03/21/2023 Restrictions: none Comments: _ Sincerely, [facility] [address], [place] [address] [facility] Ambulatory Visit Summaryon 1 04-22-2022 Ambulatory Visit Summary MATT YOUNG :1960 Visit Date:10/17/2018 Ambulatory Visit Instructions Your Diagnosis Benign localized hyperplasia of prostate with urinary obstruction Hypogonadism male Your Care Team Primary Care Physician - LAITH DICKERSON DO This Is Your Medications List albuterol (Albuterol (Eqv-ProAir HFA) 90 mcg/inh inhalation aerosol) amlodipine (amLODIPine 10 mg Tab) atorvastatin (atorvastatin 20 mg Tab) cefuroxime (cefuroxime 500 mg oral tablet) cholecalciferol (Vitamin D3 5000 intl units oral tablet) dicyclomine (dicyclomine 20 mg Tab) esomeprazole (Nexium) ferrous sulfate (ferrous sulfate 325 mg oral enteric coated tablet) finasteride (finasteride 5 mg Tab) fluticasone nasal (Flonase 0.05 mg/inh [place]) hydrochlorothiazide -lisinopril (hydrochlorothiazid e-lisinopril 12.5 mg-20 mg Tab) lisinopril (lisinopril 20 mg Tab) metoprolol (Metoprolol succinate 25 mg ER Tablet) naproxen (naproxen 500 mg Tab) omega-3 polyunsaturated fatty acids (Fish Oil) polycarbophil (Fiber Tabs) potassium chloride (potassium chloride 10 mEq Cap-ER) tadalafil (tadalafil 20 mg Tab) tadalafil (tadalafil 20 mg Tab) tamsulosin (tamsulosin 0.4 mg Cap) testosterone (Depo-Testosterone 200 mg/mL intramuscular solution) [Image Removed: STOP]Stop taking these medications dutasteride (Avodart) mirabegron (Myrbetriq 25 mg oral tablet, extended release) Procedures Performed Excision of cyst (03/29/2019), Arthroscopy of knee (03/08/2019), Arthroscopy of knee (2018), Cystoscopy (08/16/2016), Repair of umbilical hernia (03/2015), Appendectomy, Colonoscopy, lacerated tendon left wrist, Urodynamics. What to do next Scheduled Follow-Up Appointments Monday 2:30 PM EST With: Where: [facility] Normal [address] [place] [address]- \.br\ Medications\.br\ What How Much When Instructions\.br\ New tadalafil (tadalafil 20 mg Tab) 1 Tablets By Mouth As Directed take 1 tab prior to intercourse, do not exceed more than 1 tab in 24 hrs Pickup at [facility] [id number]\.br\ Changed amlodipine (amLODIPine 10 mg Tab) 1 Tablets By Mouth Every day\.br\ Changed cholecalciferol (Vitamin D3 5000 intl units oral tablet) 1 Tablets By Mouth Every day\.br\ Changed finasteride (finasteride 5 mg Tab) 1 Tablets By Mouth Every day Pickup at [facility]\.br\ Changed hydrochlorothiazid e-lisinopril (hydrochlorothiazi de-lisinopril 12.5 mg-20 mg Tab) 1 Tablets By Mouth Every day\.br\ Changed omega-3 polyunsaturated fatty acids (Fish Oil) 1,000 Milligram By Mouth Every day\.br\ Changed polycarbophil (Fiber Tabs) 1 tbs By Mouth 2 times a day metamucil \.br\ Changed tamsulosin (tamsulosin 0.4 mg Cap) 1 Capsules By Mouth Every day Pickup at [facility]\.br\ Changed testosterone (Depo-Testosterone 200 mg/ mL intramuscular solution) 400 Milligram Intramuscular Every 4 weeks\.br\ Unchanged albuterol (Albuterol (Eqv-ProAir HFA) 90 mcg/ inh inhalation aerosol)\.br\ Unchanged atorvastatin (atorvastatin 20 mg Tab) 1 Tablets By Mouth Every day\.br\ Unchanged cefuroxime (cefuroxime 500 mg oral tablet) 1 Tablets By Mouth Every day\.br\ Unchanged dicyclomine (dicyclomine 20 mg Tab) 1 Tablets By Mouth 2 times a day\.br\ Unchanged esomeprazole (Nexium) 40 Milligram By Mouth Every day\.br\ Unchanged ferrous sulfate (ferrous sulfate 325 mg oral enteric coated tablet) 1 Tablets By Mouth 2 times a day\.br\ Unchanged fluticasone nasal (Flonase 0.05 mg/ inh [place]) 2 Sprays Nasal Inhalation Every day\.br\ Unchanged lisinopril (lisinopril 20 mg Tab)\.br\ Unchanged metoprolol (Metoprolol succinate 25 mg ER Tablet) 25 Milligram By Mouth Every day\.br\ Unchanged naproxen (naproxen 500 mg Tab) 1 Tablets By Mouth Every day\.br\ Unchanged potassium chloride (potassium chloride 10 mEq Cap-ER) 1 Capsules By Mouth Every day\.br\ Unchanged tadalafil (tadalafil 20 mg Tab) 1 Tablets By Mouth Every day\.br\ Pharmacy Information\.br\ [facility]: [address] [place], [place] [id number] [phone]\.br\ [facility] [id number]: [address] [place], [place] [id number] [phone]\.br\ \.br\ What How Much When Comments\.br\ Stop Taking dutasteride (Avodart) 0.5 Milligram By Mouth Every day\.br\ Stop Taking mirabegron (Myrbetriq 25 mg oral tablet, extended release) By Mouth Every day\.br\ Allergies\.br\ Levaquin (attacked muscular system)\.br\ Problems\.br\ Ongoing - Any problem that you are currently receiving treatment for.\.br\ BMI 37.0-37.9, adult\.br\ BPH with urinary obstruction\.br\ ED (erectile dysfunction)\.br\ Hyperlipidemia\.br \ Hypogonadism male\.br\ Nocturia\.br\ Sebaceous cyst\.br\ Weak urine stream\.br\ Historical - Any problem that you are no longer receiving treatment for.\.br\ History of BPH\.br\ Low testosterone\.br\ Obesity 17-OCT-2013 12:37:00<$>\.br\ Patient Survey\.br\ You may receive a survey via text or e-mail asking about your office visit. Please share your experience with us by completing your survey. We appreciate your feedback and thank you for choosing us for your care.\.br\ \.br\ [facility] Provider Letteron 02-20-2023 Provider Letter February 20, 20[address] [place] [id number] : 1960 To Whom It May Concern, Please excuse above patient from work. Date of appointment: From: 02/20/2023 To: _ May Return to Work On: Restrictions: none Comments: Any questions, please call our office Sincerely, [facility] [address], [place] [address] [facility] Ambulatory Visit Summaryon 1 Ambulatory Visit Summary MATT YOUNG :1960 Visit Date:01/23/2023 Ambulatory Visit Instructions Your Care Team Attending Physician - Syed WELLS MD Primary Care Physician - LAITH DICKERSON DO This Is Your Medications List albuterol (Albuterol (Eqv-ProAir HFA) 90 mcg/inh inhalation aerosol) amlodipine (amLODIPine 10 mg Tab) atorvastatin (atorvastatin 20 mg Tab) cefuroxime (cefuroxime 500 mg oral tablet) cholecalciferol (Vitamin D3 5000 intl units oral tablet) dicyclomine (dicyclomine 20 mg Tab) esomeprazole (Nexium) ferrous sulfate (ferrous sulfate 325 mg oral enteric coated tablet) finasteride (finasteride 5 mg Tab) fluticasone nasal (Flonase 0.05 mg/inh [place]) hydrochlorothiazide -lisinopril (hydrochlorothiazid e-lisinopril 12.5 mg-20 mg Tab) lisinopril (lisinopril 20 mg Tab) metoprolol (Metoprolol succinate 25 mg ER Tablet) naproxen (naproxen 500 mg Tab) omega-3 polyunsaturated fatty acids (Fish Oil) polycarbophil (Fiber Tabs) potassium chloride (potassium chloride 10 mEq Cap-ER) tadalafil (tadalafil 20 mg Tab) tadalafil (tadalafil 20 mg Tab) tamsulosin (tamsulosin 0.4 mg Cap) testosterone (Depo-Testosterone 200 mg/mL intramuscular solution) Procedures Performed Excision of cyst (03/29/2019), Arthroscopy of knee (03/08/2019), Arthroscopy of knee (2018), Cystoscopy (08/16/2016), Repair of umbilical hernia (03/2015), Appendectomy, Colonoscopy, lacerated tendon left wrist, Urodynamics. What to do next Scheduled Follow-Up Appointments Monday 2:45 PM EST Where: [facility] Ambulatory Visit Summaryon 0 12-26-2022 Ambulatory Visit Summary MATT YOUNG :1960 Visit Date:12/26/2022 Ambulatory Visit Instructions Your Care Team Attending Physician - Syed WELLS MD Primary Care Physician - LAITH DICKERSON DO This Is Your Medications List albuterol (Albuterol (Eqv-ProAir HFA) 90 mcg/inh inhalation aerosol) amlodipine (amLODIPine 10 mg Tab) atorvastatin (atorvastatin 20 mg Tab) cefuroxime (cefuroxime 500 mg oral tablet) cholecalciferol (Vitamin D3 5000 intl units oral tablet) dicyclomine (dicyclomine 20 mg Tab) esomeprazole (Nexium) ferrous sulfate (ferrous sulfate 325 mg oral enteric coated tablet) finasteride (finasteride 5 mg Tab) fluticasone nasal (Flonase 0.05 mg/inh [place]) hydrochlorothiazide -lisinopril (hydrochlorothiazid e-lisinopril 12.5 mg-20 mg Tab) lisinopril (lisinopril 20 mg Tab) metoprolol (Metoprolol succinate 25 mg ER Tablet) naproxen (naproxen 500 mg Tab) omega-3 polyunsaturated fatty acids (Fish Oil) polycarbophil (Fiber Tabs) potassium chloride (potassium chloride 10 mEq Cap-ER) tadalafil (tadalafil 20 mg Tab) tadalafil (tadalafil 20 mg Tab) tamsulosin (tamsulosin 0.4 mg Cap) testosterone (Depo-Testosterone 200 mg/mL intramuscular solution) Procedures Performed Excision of cyst (03/29/2019), Arthroscopy of knee (03/08/2019), Arthroscopy of knee (2018), Cystoscopy (08/16/2016), Repair of umbilical hernia (03/2015), Appendectomy, Colonoscopy, lacerated tendon left wrist, Urodynamics. What to do next Scheduled Follow-Up Appointments Monday 2:30 PM EDT Where: [facility] Provider Letteron 12-26-2022 Provider Letter December 26, 2022 [address] YOUNG [address] [place] [id number] : 1960 To Whom It May Concern, Please excuse above patient from work. Date of Appointment: From: 12/26/2022 To: _ May Return to Work On:12/27/2022 Restrictions: none Comments: Any questions, feel free to call our office. Sincerely, [facility] [address] [facility], [place] [address] [facility] Ambulatory Visit Summaryon 0 11-28-2022 Ambulatory Visit Summary MATT YOUNG :1960 Visit Date:11/28/2022 Ambulatory Visit Instructions Your Diagnosis Hypogonadism male Your Care Team Attending Physician - TAMMY RUDOLPH, Syed Sinclair Primary Care Physician - LAITH DICKERSON DO This Is Your Medications List albuterol (Albuterol (Eqv-ProAir HFA) 90 mcg/inh inhalation aerosol) amlodipine (amLODIPine 10 mg Tab) atorvastatin (atorvastatin 20 mg Tab) cefuroxime (cefuroxime 500 mg oral tablet) cholecalciferol (Vitamin D3 5000 intl units oral tablet) dicyclomine (dicyclomine 20 mg Tab) esomeprazole (Nexium) ferrous sulfate (ferrous sulfate 325 mg oral enteric coated tablet) finasteride (finasteride 5 mg Tab) fluticasone nasal (Flonase 0.05 mg/inh [place]) hydrochlorothiazide -lisinopril (hydrochlorothiazid e-lisinopril 12.5 mg-20 mg Tab) lisinopril (lisinopril 20 mg Tab) metoprolol (Metoprolol succinate 25 mg ER Tablet) naproxen (naproxen 500 mg Tab) omega-3 polyunsaturated fatty acids (Fish Oil) polycarbophil (Fiber Tabs) potassium chloride (potassium chloride 10 mEq Cap-ER) tadalafil (tadalafil 20 mg Tab) tadalafil (tadalafil 20 mg Tab) tamsulosin (tamsulosin 0.4 mg Cap) testosterone (Depo-Testosterone 200 mg/mL intramuscular solution) Procedures Performed Excision of cyst (03/29/2019), Arthroscopy of knee (03/08/2019), Arthroscopy of knee (2018), Cystoscopy (08/16/2016), Repair of umbilical hernia (03/2015), Appendectomy, Colonoscopy, lacerated tendon left wrist, Urodynamics. What to do next Scheduled Follow-Up Appointments Monday. 2022 2:45 PM EDT Where: [facility] Provider Letteron 11-28-2022 Provider Letter November 28, 2022 [address] YOUNG [address] [place] [id number] : 1960 To Whom It May Concern, Please excuse above patient from work. Date of Appointment: From: 11/28/2022 To: May Return to Work On: 11/29/2022 Restrictions: None Comments: Any Questions, please call our office. Sincerely, [facility] [address] [facility], [place] [address] [facility] Ambulatory Visit Summaryon 0 10-31-2022 Ambulatory Visit Summary MATT YOUNG :1960 Visit Date:10/31/2022 Ambulatory Visit Instructions Your Diagnosis Hypogonadism male Your Care Team Attending Physician - TAMMY RUDOLPH, Syed Sinclair Primary Care Physician - LAITH DICKERSON DO This Is Your Medications List albuterol (Albuterol (Eqv-ProAir HFA) 90 mcg/inh inhalation aerosol) amlodipine (amLODIPine 10 mg Tab) atorvastatin (atorvastatin 20 mg Tab) cefuroxime (cefuroxime 500 mg oral tablet) cholecalciferol (Vitamin D3 5000 intl units oral tablet) dicyclomine (dicyclomine 20 mg Tab) esomeprazole (Nexium) ferrous sulfate (ferrous sulfate 325 mg oral enteric coated tablet) finasteride (finasteride 5 mg Tab) fluticasone nasal (Flonase 0.05 mg/inh [place]) hydrochlorothiazide -lisinopril (hydrochlorothiazid e-lisinopril 12.5 mg-20 mg Tab) lisinopril (lisinopril 20 mg Tab) metoprolol (Metoprolol succinate 25 mg ER Tablet) naproxen (naproxen 500 mg Tab) omega-3 polyunsaturated fatty acids (Fish Oil) polycarbophil (Fiber Tabs) potassium chloride (potassium chloride 10 mEq Cap-ER) tadalafil (tadalafil 20 mg Tab) tamsulosin (tamsulosin 0.4 mg Cap) testosterone (Depo-Testosterone 200 mg/mL intramuscular solution) Procedures Performed Excision of cyst (03/29/2019), Arthroscopy of knee (03/08/2019), Arthroscopy of knee (2018), Cystoscopy (08/16/2016), Repair of umbilical hernia (03/2015), Appendectomy, Colonoscopy, lacerated tendon left wrist, Urodynamics. What to do next Scheduled Follow-Up Appointments Monday 2:45 PM EDT Where: [facility] Nurse Consultation Noteon Nurse Consultation Note Reason for Visit 4wk Testosterone Injection Assessment/Plan 1. Hypogonadism male (E29.1: Testicular hypofunction) 400mg/2ml Testosterone IM given in Lt Glute. Pt tolerated well. WIll return in 4 weeks for next injection. Will see Dr Wells at the end of February with T, PSA & CBC. Medications Albuterol (Eqv-ProAir HFA) 90 mcg/inh inhalation aerosol amLODIPine 10 mg Tab, 10 mg= 1 tab(s), Oral, Daily atorvastatin 20 mg Tab, 20 mg= 1 tab(s), Oral, Daily cefuroxime 500 mg oral tablet, 500 mg= 1 tab(s), Oral, Daily Depo-Testosterone 200 mg/mL intramuscular solution, 400 mg, IntraMuscular, q4wk, 5 refills dicyclomine 20 mg Tab, 20 mg= 1 tab(s), Oral, BID ferrous sulfate 325 mg oral enteric coated tablet, 325 mg= 1 tab(s), Oral, BID Fiber Tabs, 1 tbs, Oral, BID finasteride 5 mg Tab, 5 mg= 1 tab(s), Oral, Daily, 3 refills Fish Oil, 1000 mg, Oral, Daily Flonase 0.05 mg/inh [place], 2 spray(s), Nasal, Daily hydrochlorothiazide -lisinopril 12.5 mg-20 mg Tab, 1 tab(s), Oral, Daily lisinopril 20 mg Tab Metoprolol succinate 25 mg ER Tablet, 25 mg, Oral, Daily naproxen 500 mg Tab, 500 mg= 1 tab(s), Oral, Daily Nexium, 40 mg, Oral, Daily potassium chloride 10 mEq Cap-ER, 10 mEq= 1 cap(s), Oral, Daily tadalafil 20 mg Tab, 20 mg= 1 tab(s), Oral, Daily, 6 refills tamsulosin 0.4 mg Cap, 0.4 mg= 1 cap(s), Oral, Daily, 3 refills Vitamin D3 5000 intl units oral tablet, 5000 International_Unit= 1 tab(s), Oral, Daily Allergies Levaquin (attacked muscular system) Immunizations Vaccine Date Status Comments influenza virus vaccine, inactivated 02/21/2022 Recorded SARS-CoV-2 (COVID-19) mRNA BNT-162b2 vax 03/10/2021 Recorded SARS-CoV-2 (COVID-19) mRNA BNT-162b2 vax 07/21/2020 Recorded SARS-CoV-2 (COVID-19) mRNA BNT-162b2 vax 06/30/2020 Recorded SARS-CoV-2 (COVID-19) mRNA BNT-162b2 vax 2020 Recorded pt has had 3 shots to date but does not know the date zoster vaccine, inactivated 02/12/2020 Recorded zoster vaccine, inactivated 12/13/2019 Recorded influenza virus vaccine, inactivated 12/13/2019 Recorded influenza virus vaccine, inactivated 02/04/2019 Recorded influenza virus vaccine, inactivated 01/27/2018 Recorded influenza virus vaccine, inactivated 01/20/2017 Recorded influenza virus vaccine, inactivated 01/13/2016 Recorded Normal [facility] Provider Letteron 10-03-2022 Provider Letter October 03, 20[address] YOUNG [address] [place] [phone] : 1960 To Whom It May Concern, Please excuse above patient from work. Date of Appointment: From: 10/03/2022 To: _ May Return to Work On:10/04/2022 Restrictions: none Comments: Any Questions, please call our office. Sincerely, [facility] [address], [place] [address] Normal [facility] Auto Diffon 09-06-2022 Basophils/100 WBC (Bld) 1.3 % Normal 0.0-2.0 [facility] Comment on above: Order Comment: Order Added by Discern Expert. Performed By: #### 2 [id number], [id number] ####[facility] [address] [place] [address] Basophils/Leukocy halley Auto (Bld) [Pure # fraction] 0.1 E9/L Normal 0.0-0.2 [facility] Comment on above: Order Comment: Order Added by Discern Expert. Performed By: #### 2 [id number], [id number] ####[facility] [id number] [place] [address] Eosinophils/100 WBC (Bld) 6.9 % Normal 0.0-8.0 [facility] Comment on above: Order Comment: Order Added by Discern Expert. Performed By: #### 2 [id number], [id number] ####[facility] [id number] [place] [address] Eosinophils/Leuko cytes Auto (Bld) [Pure # fraction] 0.5 E9/L Normal 0.0-0.5 [facility] Comment on above: Order Comment: Order Added by Discern Expert. Performed By: #### 2 [id number], [id number] ####[address] [address] Lymphocytes/100 WBC (Bld) 23.0 % Normal 14.0-50.0 [facility] Comment on above: Order Comment: Order Added by Discern Expert. Performed By: #### 2 [id number], [id number] ####[address] [address] Lymphocytes/Leuko cytes Auto (Bld) [Pure # fraction] 1.7 E9/L Normal 1.0-4.0 [facility] Comment on above: Order Comment: Order Added by Discern Expert. Performed By: #### 2 [id number], [id number] ####[address] [address] Monocytes/100 WBC (Bld) 9.6 % Normal 4.0-14.0 [facility] Comment on above: Order Comment: Order Added by Discern Expert. Performed By: #### 2 [id number], [id number] ####[address] [address] Monocytes/Leukocy halley Auto (Bld) [Pure # fraction] 0.7 E9/L Normal 0.2-1.0 [facility] Comment on above: Order Comment: Order Added by Discern Expert. Performed By: #### 2 [id number], [id number] ####[address] [address] Neutrophils/100 WBC (Bld) 59.2 % Normal 36.0-75.0 [facility] Comment on above: Order Comment: Order Added by Discern Expert. Performed By: #### 2 [id number], [id number] ####[address] [address] Neutrophils/Leuko cytes Auto (Bld) [Pure # fraction] 4.4 E9/L Normal 2.0-7.5 [facility] Comment on above: Order Comment: Order Added by Discern Expert. Performed By: #### 2 [id number], [id number] ####[address] [place] [address] CBC w/ Auto Diffon 3 Erythrocyte distribution width (RBC) [Ratio] 15.8 % High 10.9-14.2 [facility] Comment on above: Performed By: #### 2 [id number], [id number] ####[address] [address] Hematocrit (Bld) [Volume fraction] 45.5 % Normal 37.7-49.0 [facility] Comment on above: Performed By: #### 2 [id number], [id number] ####[address] [address] Hemoglobin (Bld) [Mass/Vol] 14.7 g/dL Normal 13.5-17.5 [facility] Comment on above: Performed By: #### 2 [id number], [id number] ####[address] [address] MCH (RBC) [Entitic mass] 30.6 pg Normal 27.0-34.0 [facility] Comment on above: Performed By: #### 2 [id number], [id number] ####[address] [address] MCHC (RBC) [Mass/Vol] 32.4 g/dL Normal 31.4-36.0 [facility] Comment on above: Performed By: #### 2 [id number], [id number] ####[address] [address] MCV (RBC) [Entitic vol] 94.5 fL Normal 80.0-100.0 [facility] Comment on above: Performed By: #### 2 [id number], [id number] ####[address] [address] Platelet mean volume (Bld) [Entitic vol] 7.8 fL Normal 6.4-10.8 [facility] Comment on above: Performed By: #### 2 [id number], [id number] ####[address] [place] [address] Platelets (Bld) [#/Vol] 301.0 E9/L Normal 150.0-500.0 [facility] Comment on above: Performed By: #### 2 [id number], [id number] ####[facility] [address] [place] [address] RBC (Bld) [#/Vol] 4.8 E12/L Normal 4.3-5.9 [facility] Comment on above: Performed By: #### 2 [id number], [id number] ####[facility] [address] [place] [address] WBC corrected for nucl RBC Auto (Bld) [#/Vol] 7.5 E9/L Normal 4.0-11.0 [facility] Comment on above: Performed By: #### 2 [id number], [id number] ####[facility] [address] [place] [address] Ambulatory Visit Summaryon 0 09-05-2022 Ambulatory Visit Summary MATT YOUNG :1960 Visit Date:09/05/2022 Ambulatory Visit Instructions Your Diagnosis Hypogonadism male BPH with urinary obstruction Nocturia ED (erectile dysfunction) Anemia Tests Performed Urnls Dip Stick Auto w/o Microscopy POC [id number] Your Care Team Attending Physician - Syed WELLS MD Primary Care Physician - LAITH DICKERSON DO This Is Your Medications List finasteride (finasteride 5 mg Tab) tadalafil (tadalafil 20 mg Tab) tamsulosin (tamsulosin 0.4 mg Cap) testosterone (Depo-Testosterone 200 mg/mL intramuscular solution) Contact prescribing physician if questions or concerns albuterol (Albuterol (Eqv-ProAir HFA) 90 mcg/inh inhalation aerosol) amlodipine (amLODIPine 10 mg Tab) atorvastatin (atorvastatin 20 mg Tab) cefuroxime (cefuroxime 500 mg oral tablet) cholecalciferol (Vitamin D3 5000 intl units oral tablet) dicyclomine (dicyclomine 20 mg Tab) esomeprazole (Nexium) ferrous sulfate (ferrous sulfate 325 mg oral enteric coated tablet) fluticasone nasal (Flonase 0.05 mg/inh [place]) hydrochlorothiazide -lisinopril (hydrochlorothiazid e-lisinopril 12.5 mg-20 mg Tab) lisinopril (lisinopril 20 mg Tab) metoprolol (Metoprolol succinate 25 mg ER Tablet) naproxen (naproxen 500 mg Tab) omega-3 polyunsaturated fatty acids (Fish Oil) polycarbophil (Fiber Tabs) potassium chloride (potassium chloride 10 mEq Cap-ER) [Image Removed: STOP]Stop taking these medications mirabegron (Myrbetriq 50 mg oral tablet, extended release) Procedures Performed Excision of cyst (03/29/2019), Arthroscopy of knee (03/08/2019), Arthroscopy of knee (2018), Cystoscopy (08/16/2016), Repair of umbilical hernia (03/2015), Appendectomy, Colonoscopy, lacerated tendon left wrist, Urodynamics. Discharge Vitals Heart Rate (Peripheral) 80 Respiratory Rate 16 Blood Pressure 128/74 Height 177 cm Height 70 in Weight 109 kg Weight 239.8 lb BMI 34.79 What to do next Scheduled Follow-Up Appointments Monday 2:45 PM EDT Where: [facility] Patient Educationon 09-06-19 Patient Education Urology Hypogonadism, Male Male hypogonadism is a condition of having a level of testosterone that is lower than normal. Testosterone is a chemical, or hormone, that is made mainly in the testicles. In boys, testosterone is responsible for the development of male characteristics during puberty. These include: ? Making the penis bigger. ? Growing and building the muscles. ? Growing facial hair. ? Deepening the voice. In adult men, testosterone is responsible for maintaining: ? An interest in sex and the ability to have sex. ? Muscle mass. ? Sperm production. ? Red blood cell production. ? Bone strength. Testosterone also gives men energy and a sense of well-being. Testosterone normally decreases as men age and the testicles make less testosterone. Testosterone levels can vary from man to man. Not all men will have signs and symptoms of low testosterone. Weight, alcohol use, medicines, and certain medical conditions can affect a man's testosterone level. What are the causes? This condition is caused by: ? A natural decrease in testosterone that occurs as a man grows older. This is the main cause of this condition. ? Use of medicines, such as antidepressants, steroids, and opioids. ? Diseases and conditions that affect the testicles or the making of testosterone. These include: ? Injury or damage to the testicles from trauma, cancer, cancer treatment, or infection. ? Diabetes. ? Sleep apnea. ? Genetic conditions that men are born with. ? Disease of the pituitary gland. This gland is in the brain. It produces hormones. ? Obesity. ? Metabolic syndrome. This is a group of diseases that affect blood pressure, blood sugar, cholesterol, and belly fat. ? HIV or AIDS. ? Alcohol abuse. ? Kidney failure. ? Other long-term or chronic diseases. What are the signs or symptoms? Common symptoms of this condition include: ? Loss of interest in sex (low sex drive). ? Inability to have or maintain an erection (erectile dysfunction). ? Feeling tired (fatigue). ? Mood changes, like irritability or depression. ? Loss of muscle and body hair. ? Infertility. ? Large breasts. ? Weight gain (obesity). How is this diagnosed? Your health care provider can diagnose hypogonadism based on: ? Your signs and symptoms. ? A physical exam to check your testosterone levels. This includes blood tests. Testosterone levels can change throughout the day. Levels are highest in the morning. You may need to have repeat blood tests before getting a diagnosis of hypogonadism. Depending on your medical history and test results, your health care provider may also do other tests to find the cause of low testosterone. How is this treated? This condition is treated with testosterone replacement therapy. Testosterone can be given by: ? Injection or through pellets inserted under the skin. ? Gels or patches placed on the skin or in the mouth. Testosterone therapy is not for everyone. It has risks and side effects. Your health care provider will consider your medical history, your risk for prostate cancer, your age, and your symptoms before putting you on testosterone replacement therapy. Follow these instructions at home: ? Take cdok-ciz-fajvboe and prescription medicines only as told by your health care provider. ? Eat foods that are high in fiber, such as beans, whole grains, and fresh fruits and vegetables. Limit foods that are high in fat and processed sugars, such as fried or sweet foods. ? If you drink alcohol: ? Limit how much you have to 0?2 drinks a day. ? Know how much alcohol is in your drink. In the [place] one drink equals one 12 oz bottle of beer (355 mL), one 5 oz glass of wine (148 mL), or one 1? oz glass of hard liquor (44 mL). ? Return to your normal activities as told by your health care provider. Ask your health care provider what activities are safe for you. ? Keep all follow-up visits. This is important. Contact a health care provider if: ? You have any of the signs or symptoms of low testosterone. ? You have any side effects from testosterone therapy. Summary ? Male hypogonadism is a condition of having a level of testosterone that is lower than normal. ? The natural drop in testosterone production that occurs with age is the most common cause of this condition. ? Low testosterone can also be caused by many diseases and conditions that affect the testicles and the making of testosterone. ? This condition is treated with testosterone replacement therapy. ? There are risks and side effects of testosterone therapy. Your health care provider will consider your age, medical history, symptoms, and risks for prostate cancer before putting you on testosterone therapy. This information is not intended to replace advice given to you by your health care provider. Make sure you discuss any questions you have with your health care provider. Document Revised: 12/03/2020 Document (more content not included)... [facility] Provider Letteron 09-05-2022 Provider Letter September 05, 2022 MATT YOUNG [address] [place] [id number] : 1960 To Whom It May Concern, Please excuse above patient from work. Date of Appointment: From: 09/05/22 To: _ May Return to Work On:09/06/22 Restrictions: None Comments: Any questions, please call our office Sincerely, [facility] [address], [place] [address] [facility] Urology Office/Clinic Noteon 09-05-2022 Urology Office/Clinic Note Chief Complaint 6m Testosterone HPI Staff 6m Testosterone DX: Hypogonadism, ED, BPH & Nocturia *Testosterone Injections, 350mg IM q4wks. Also takes Finasteride 5mg QD, Flomax 0.4mg QD therapy. Was started on Myrbetriq 50mg QD therapy at time of last encounter w/PRW ( 02/21/22) Also taking Tadalafil 20mg PRN CBC done 02/23/22 Testosterone done 08/22/22- 287 ([id number]) PSA done 02/04/22- <0.13 Still getting up at night to void. a lot no improvement with Myrbetriq, as he had expected. Wants to stop taking. Frequency depends on fluid intake. Denies pain/burning and blood in urine. History of Present Illness Tests reviewed: reviewed UA, T level, CBC. I have reviewed the previous health record information and history for this patient from Dr. Wells. I have reviewed and verified the staff HPI to be accurate for this encounter. There have been no associated fever, chills, flank pain, or blood in the urine. Denies any urinary infections since last encounter. Review of Systems PHQ Score Initial Depression Screen Score: 0 ROS - Provider Constitutional: denies weight loss, denies hot flashes. Eyes: denies eye problems. Gastrointestinal: denies nausea, denies vomiting. Cardiovascular: denies chest pain or angina. Integumentary: no dryness Musculoskeletal: denies musculoskeletal symptoms. ENMT: denies otolaryngeal symptoms. Respiratory: no shortness of breath. Heme/Lymph: denies easy bleeding tendency, denies easy bruising tendency. Psychiatric: no confusion, no anxiety. Genitourinary: See HPI. Physical Exam Vitals & Measurements HR: 80(Peripheral) RR: 16 BP: 128/74 HT: 70 in HT: 177 cm WT: 109 kg WT: 239.8 lb BMI: 34.79 General Appearance: alert, no distress, well nourished, well developed male. Genitourinary: normal scrotum, normal testes, normal urethra, normal epididymis, normal vas deferens/spermatic cord. Flank Pain: none. Bladder: nonpalpable. Assessment/Plan 1. Hypogonadism male (E29.1: Testicular hypofunction) Testosterone (ref range 264-916): 08/31/21 - 615 02/07/22 - 715 08/22/22 - 287 CBC 02/23/22 - RBC 4.34 L. HGB 9.5 L. HCT 30.5. Receiving Testosterone IM 350 mg q4wks. Reviewed labs with pt, HGB very low. He has been feeling run down, fatigued, easily winded lately. T also low, will increase dose. Called his family doc and revealed the low hgb to him. he will call the pt and see him in the office this week. Pt understands and agrees with plan. -Increase Testosterone IM from 350 mg q4wk to 400 mg q4wk. Refill sent to [facility]. -Repeat CBC. Will be drawn IO today. 2. BPH with urinary obstruction (N40.1: Benign prostatic hyperplasia with lower urinary tract symptoms) PSA: 04/22/20 - <0.05 02/04/22 - <0.13 UA today negative for blood and infection.Taking Finasteride 5 mg QD and Flomax 0.4 mg QD. Has decent stream most of the time. 3. Nocturia (R35.1: Nocturia) Started Myrbetriq 50 mg QD at prior OV due to waking up to void every hour at night. Still voiding every hour at night with Myrbetriq. Took for 6 mos, noticed no improvement. Urge wakes him. Unsure if he has sleep apnea and/or if pain is waking him. -D/c Myrbetriq. 4. ED (erectile dysfunction) (N52.9: Male erectile dysfunction, unspecified) Tadalafil 20 mg PRN. 5. Anemia (D64.9: Anemia, unspecified) 02/23/22 - HGB 9.5 L. Reviewed labs with pt, HGB very low. Stopped taking OTC Fe supplement but has restarted. Saw PCP a few weeks ago, Dr. Dickerson. Per pt, nothing was said about low HGB level. Advised pt he should be on prescription strength Fe. -Contact Dr. Dickerson's office. Follow-up With When Contact Information TAMMY RUDOLPH, Syed Sinclair, URL [facility] [address] [place] [address]- Additional Instructions: pending CBC results Patient Education Hypogonadism, Male I, Grisel Kumari, personally scribed for Dr. Wells on 09/05/2022 16:58:27. . Documentation recorded by the Grisel mosquera, accurately reflects the services(s) I performed and decisions made by me. Authenticated by Dr. Wells on 09/05/2022 17:14:05. Problem List/Past Medical History Ongoing BMI 37.0-37.9, adult BPH with urinary obstruction ED (erectile dysfunction) Hyperlipidemia Hypogonadism male Nocturia Sebaceous cyst Weak urine stream Historical History of BPH Low testosterone Obesity 17-OCT-2013 12:37:00<$> Procedure/Surgical History Excision of cyst (03/29/2019), Arthroscopy of knee (03/08/2019), Arthroscopy of knee (2018), Cystoscopy (08/16/2016), Repair of umbilical hernia (03/2015), Appendectomy, Colonoscopy, lacerated tendon left wrist, Urodynamics. Medications Albuterol (Eqv-ProAir HFA) 90 mcg/inh inhalation aerosol amLODIPine 10 mg Tab, 10 mg= 1 tab(s), Oral, Daily atorvastatin 20 mg Tab, 20 mg= 1 tab(s), Oral, Daily cefuroxime 500 mg oral tablet, 500 mg= 1 tab(s), Oral, Daily Depo-Testosterone 200 mg/mL (more content not included)... Normal [facility] Comment on above: Result Comment: Elec tronically Signed By: Syed WELLS MD\.br\Date and Time Signed: 09/05/22 17:14 EDT\.br\Electronically Co-Signed By: Grisel Kumari\.br\Date and Time Co-Signed: 09/05/22 17:09 EDT Lab Reportson 08-29-2022 Lab Reports [id number]:127 Normal [facility] TESTOSTERONE, TOTALon 2022 Testosterone [Mass/Vol] 287 ng/dL Normal 264-[address] [facility] Comment on above: Result Comment: Adul t male reference interval is based on a population of healthy nonobese males (BMI <30) between 19 and 39 years old. isaac Jenkins.al. JCEM 2017,102;8783-4252. PMID: [id number]. Performed By: #### T ESTTOT #### [facility] [address] [address] [address] Ying Spencer Ambulatory Visit Summaryon 0 08-08-2022 Ambulatory Visit Summary MATT YOUNG :1960 Visit Date:08/08/2022 Ambulatory Visit Instructions Your Diagnosis Hypogonadism male Your Care Team Attending Physician - Syed WELLS MD Primary Care Physician - LAITH DICKERSON DO This Is Your Medications List amlodipine (amLODIPine 10 mg Tab) atorvastatin (atorvastatin 20 mg Tab) cefuroxime (cefuroxime 500 mg oral tablet) cholecalciferol (Vitamin D3 5000 intl units oral tablet) dicyclomine (dicyclomine 20 mg Tab) esomeprazole (Nexium) ferrous sulfate (ferrous sulfate 325 mg oral enteric coated tablet) finasteride (finasteride 5 mg Tab) fluticasone nasal (Flonase 0.05 mg/inh [place]) hydrochlorothiazide -lisinopril (hydrochlorothiazid e-lisinopril 12.5 mg-20 mg Tab) metoprolol (Metoprolol succinate 25 mg ER Tablet) mirabegron (Myrbetriq 50 mg oral tablet, extended release) naproxen (naproxen 500 mg Tab) omega-3 polyunsaturated fatty acids (Fish Oil) oxybutynin (oxybutynin 5 mg Tab) polycarbophil (Fiber Tabs) potassium chloride (potassium chloride 10 mEq Cap-ER) tadalafil (tadalafil 20 mg Tab) tamsulosin (tamsulosin 0.4 mg Cap) testosterone (Depo-Testosterone 200 mg/mL intramuscular solution) Procedures Performed Excision of cyst (03/29/2019), Arthroscopy of knee (03/08/2019), Arthroscopy of knee (2018), Cystoscopy (08/16/2016), Repair of umbilical hernia (03/2015), Appendectomy, Colonoscopy, lacerated tendon left wrist, Urodynamics. What to do next Scheduled Follow-Up Appointments Monday. 2022 2:30 PM EDT With: Syed WELLS MD Where: [facility] Provider Letteron 08-08-2022 Provider Letter August 08, 2022 MATT YOUNG [address] [place] [address], [place] [address] MATT YOUNG 1960 To Whom It May Concern, Please excuse above patient from work. Date of Appointment: From: 08/08/2022 To: May Return to Work On:08/09/2022 Restrictions: Comments: Any questions, please call our office Sincerely, [facility] [address], [place] [address] Normal [facility] CBC AUTO DIFFon 02-23-2022 BASO # 0.1 103/ul Normal 0.0-0.[address] [facility] Comment on above: Performed By: #### C BC #### [facility] [address] [place] [address] Dr. Ying Spencer Basophils/100 WBC (Bld) 0.9 % Normal 0.2-2.[address] [facility] Comment on above: Performed By: #### C BC #### [facility] [address] [place] [address] Dr. Ying Spencer EO # 0.3 103/ul Normal 0.0-0.[address] [facility] Comment on above: Performed By: #### C BC #### [facility] [address] [place] [address] Dr. Ying Spencer Eosinophils/100 WBC (Bld) 2.7 % Normal 0.9-7.[address] [facility] Comment on above: Performed By: #### C BC #### [facility] [address] [place] [address] Dr. Ying Spencer Erythrocyte distribution width (RBC) [Ratio] 17.1 % Critically high 11.0-15.[address] [facility] Comment on above: Performed By: #### C BC #### [facility] [address] [place] [address] Dr. Ying Spencer Hematocrit (Bld) [Volume fraction] 30.5 % Critically low 42.0-54.[address] [facility] Comment on above: Performed By: #### C BC #### [facility] [address] [place] [address] Dr. Ying Spencer Hemoglobin (Bld) [Mass/Vol] 9.5 g/dL Critically low 14.0-18.[address] [facility] Comment on above: Performed By: #### C BC #### [facility] [address] [place] [address] Dr. Ying Spencer IG # 0.04 10e3/ul Critically high 0.00-0.03 [facility] Comment on above: Performed By: #### C BC #### [facility] [address] [place] [address] Dr. Ying Spencer IG % 0.4 % Normal 0.0-0.[address] [facility] Comment on above: Performed By: #### C BC #### [facility] [address] [place] [address] Dr. Ying Spencer LYMPH # 1.7 103/ul Normal 1.2-3.[address] [facility] Comment on above: Performed By: #### C BC #### [facility] [address] [place] [address] Dr. Ying Spencer Lymphocytes/100 WBC (Bld) 17.3 % Critically low 20.5-60.[address] [facility] Comment on above: Performed By: #### C BC #### [facility] [address] [place] [address] Dr. Ying Spencer MANUAL DIFF REQ NO Normal [facility] Comment on above: Performed By: #### C BC #### [facility] [address] [place] [address] Dr. Ying Spencer MCH (RBC) [Entitic mass] 21.9 pg Critically low 25.9-34.[address] [facility] Comment on above: Performed By: #### C BC #### [facility] [address] [place] [address] Dr. Ying Spencer MCHC (RBC) [Mass/Vol] 31.1 g/dL Normal 29.9-35.[address] [facility] Comment on above: Performed By: #### C BC #### [facility] [address] [place] [address] Dr. Ying Spencer MCV (RBC) [Entitic vol] 70.3 fL Critically low 80.0-94.[address] [facility] Comment on above: Performed By: #### C BC #### [facility] [address] [address] [address] Ying Spencer MONO # 1.0 103/ul Critically high 0.3-0.8 [facility] Comment on above: Performed By: #### C BC #### [facility] [address] [address] [address] Ying Spencer Monocytes/100 WBC (Bld) 10.8 % Normal 1.7-12.[address] [facility] Comment on above: Performed By: #### C BC #### [facility] [address] [place] [address] Dr. Ying Spencer NEUT # 6.5 103/ul Normal 1.4-6.[address] [facility] Comment on above: Performed By: #### C BC #### [facility] [address] [place] [address] Dr. Ying Spencer Neutrophils/100 WBC (Bld) 67.9 % Normal 43.0-75.[address] [facility] Comment on above: Performed By: #### C BC #### [facility] [address] [place] [address] Dr. Ying Spencer Platelet mean volume (Bld) [Entitic vol] 9.2 fL Critically low 9.5-13.[address] [facility] Comment on above: Performed By: #### C BC #### [facility] [address] [place] [address] Dr. Ying Spencer PLT 399 103/ul Normal 150-450 [facility] Comment on above: Performed By: #### C BC #### [facility] [address] [place], [place] [address] Dr. Ying Spencer RBC 4.34 106/ul Critically low 4.70-6.10 [facility] Comment on above: Performed By: #### C BC #### [facility] [address] [place] [address] Dr. Ying Spencer WBC 9.6 103/ul Normal 4.0-11.[address] [facility] Comment on above: Performed By: #### C BC #### [facility] [address] [address] [address] Ying Spencer TESTOSTERONE, TOTALon 2021 Testosterone [Mass/Vol] 715 ng/dL Normal 264-[address] [facility] Comment on above: Result Comment: Adul t male reference interval is based on a population of healthy nonobese males (BMI <30) between 19 and 39 years old. Alice et.al. JCEM 2017,102;9594-9574. PMID: [id number]. Performed By: #### T ESTTOT #### [facility] [address] [place] [address] Dr. Ying Spencer LIPID PROFILEon 02-04-2022 CHOL-HDL RATIO NORM SEE BELOW Normal [facility] Comment on above: Result Comment: 3.3 - 4.4 LOW RISK 4.4 - 7.1 AVERAGE RISK 7.1 - 11.0 MODERATE RISK >11.0 HIGH RISK Performed By: #### C MP, LIPID #### [facility] [address] [place] [address] Dr. Ying Spencer Cholesterol [Mass/Vol] 141 mg/dL Normal <=[address] [facility] Comment on above: Performed By: #### C MP, LIPID #### [facility] [address] [place] [address] Dr. Ying Spencer Cholesterol in HDL [Mass/Vol] 50 mg/dL Normal 40-[address] [facility] Comment on above: Performed By: #### C MP, LIPID #### [facility] [address] [address] [address] Ying Spencer Cholesterol in LDL [Mass/Vol] 77.2 mg/dL Normal [facility] Comment on above: Performed By: #### C MP, LIPID #### [facility] [address] [address] [address] Ying Spencer Cholesterol.total /Cholesterol in HDL [Mass ratio] 2.8 {ratio} Normal [facility] Comment on above: Performed By: #### C MP, LIPID #### [facility] [address] [address] [address] Ying Spencer HDL NORMAL > or = 60 mg/dl - LOW CARDIOVASCULAR RISK <40 mg/dl - HIGH CARDIOVASCULAR RISK Normal [facility] Comment on above: Performed By: #### C MP, LIPID #### [facility] [address] [address] [address] Ying Spencer LDL CALC NORMAL SEE BELOW Normal [facility] Comment on above: Result Comment: <100 mg/dl OPTIMAL 100 - 129 mg/dl NEAR OR ABOVE OPTIMAL 130 - 159 mg/dl BORDERLINE HIGH 160 - 189 mg/dl HIGH >190 mg/dl VERY HIGH Performed By: #### C MP, LIPID #### [facility] [address] [address] [address] Ying Spencer Triglyceride [Mass/Vol] 69 mg/dL Normal <=[address] [facility] Comment on above: Performed By: #### C MP, LIPID #### [facility] [address] [address] [address] Ying Spencer VLDL CALC 13.8 mg/dL Normal [facility] Comment on above: Performed By: #### C MP, LIPID #### [facility] [address] [address] [address] Ying Spencer PROF 14(COMP METB)on 022 Albumin [Mass/Vol] 4.0 g/dL Normal 3.4-5.[address] [facility] Comment on above: Performed By: #### C MP, LIPID #### [facility] [address] [place] [address] Dr. Ying Spencer Albumin/Globulin [Mass ratio] 1.2 {ratio} Normal [facility] Comment on above: Performed By: #### C MP, LIPID #### [facility] [address] [address] [address] Ying Spencer ALP [Catalytic activity/Vol] 84 U/L Normal 46-[address] [facility] Comment on above: Performed By: #### C MP, LIPID #### [facility] [address] [address] [address] Ying Spencer ALT [Catalytic activity/Vol] 30 U/L Normal 16-63 [facility] Comment on above: Performed By: #### C MP, LIPID #### [facility] [address] [address] [address] Ying Spencer Anion gap [Moles/Vol] 8.3 mmol/L Normal [facility] [facility] Comment on above: Performed By: #### C MP, LIPID #### [facility] [address] [address] [address] Ying Spencer AST [Catalytic activity/Vol] 23 U/L Normal 15-37 [facility] Comment on above: Performed By: #### C MP, LIPID #### [facility] [address] [place] [address] Dr. Ying Spencer Bilirubin [Mass/Vol] 0.2 mg/dL Normal 0.2-1.[address] [facility] Comment on above: Performed By: #### C MP, LIPID #### [facility] [address] [place] [address] Dr. Ying Spencer Calcium [Mass/Vol] 9.0 mg/dL Normal 8.5-10.1 [facility] Comment on above: Performed By: #### C MP, LIPID #### [facility] [address] [place] [address] Dr. Ying Spencer Chloride [Moles/Vol] 98 mmol/L Normal 98-[address] [facility] Comment on above: Performed By: #### C MP, LIPID #### [facility] [address] [place] [address] Dr. Ying Spencer CO2 [Moles/Vol] 27.7 mmol/L Normal 21.0-32.0 [facility] Comment on above: Performed By: #### C MP, LIPID #### [facility] [address] [place] [address] Dr. Ying Spencer Creatinine [Mass/Vol] 1.13 mg/dL Normal 0.70-1.30 [facility] Comment on above: Performed By: #### C MP, LIPID #### [facility] [address] [place] [address] Dr. Ying Spencer EGFR-AF DUTCH >60 Normal >=60 [facility] Comment on above: Performed By: #### C MP, LIPID #### [facility] [address] [address] [address] Ying Spencer EGFR-NON AF DUTCH >60 Normal >=[address] [facility] Comment on above: Performed By: #### C MP, LIPID #### [facility] [address] [address] [address] Ying Spencer Globulin (S) [Mass/Vol] 3.3 g/dL Normal [facility] Comment on above: Performed By: #### C MP, LIPID #### [facility] [address] [address] [address] Ying Spencer Glucose [Mass/Vol] 93 mg/dL Normal 74-[address] [facility] Comment on above: Performed By: #### C MP, LIPID #### [facility] [address] [place] [address] Dr. Ying Spencer Potassium [Moles/Vol] 4.0 mmol/L Normal 3.5-5.1 [facility] Comment on above: Performed By: #### C MP, LIPID #### [facility] [address] [place] [address] Dr. Ying Spencer Protein [Mass/Vol] 7.3 g/dL Normal 6.4-8.[address] [facility] Comment on above: Performed By: #### C MP, LIPID #### [facility] [address] [place] [address] Dr. Ying Spencer Sodium [Moles/Vol] 130 mmol/L Critically low 136-145 [facility] Comment on above: Performed By: #### C MP, LIPID #### [facility] [address] [place] [address] Dr. Ying Spencer Urea nitrogen [Mass/Vol] 17.0 mg/dL Normal 7.0-18.[address] [facility] Comment on above: Performed By: #### C MP, LIPID #### [facility] [address] [place] [address] Dr. Ying Spencer Urea nitrogen/Creatini ne [Mass ratio] 15.0 mg/mg Normal [facility] Comment on above: Performed By: #### C MP, LIPID #### [facility] [address] [place], [place] [address] Dr. Ying Spencer TESTOSTERONE, TOTALon 2021 Testosterone [Mass/Vol] 615 ng/dL Normal 264-[address] [facility] Comment on above: Result Comment: Adul t male reference interval is based on a population of healthy nonobese males (BMI <30) between 19 and 39 years old. Alice, et.al. JCEM 2017,102;2225-3362. PMID: [id number]. Performed By: #### T ESTTOT #### [facility] [id number] Ying Spencer BASIC METABOLIC PANELon BUN/CREATININE RATIO NOT APPLICABLE Normal 6-22 [facility] Comment on above: Order Comment: FASTI NG: UNKNOWN Performed By: #### 1 0165 #### [facility] [address] [address] Template Checker: Saurabh Noriega MD Calcium [Mass/Vol] 9.3 mg/dL Normal 8.6-10.3 [facility] Comment on above: Order Comment: FASTI NG: UNKNOWN Performed By: #### 1 0165 #### [facility] [address] [place] [address] Template Checker: Saurabh Noriega MD Chloride [Moles/Vol] 97 mmol/L Low 98-110 [facility] Comment on above: Order Comment: FASTI NG: UNKNOWN Performed By: #### 1 0165 #### [facility] [address] [place] [address] Template Checker: Saurabh Noriega MD CO2 [Moles/Vol] 25 mmol/L Normal 20-32 [facility] Comment on above: Order Comment: FASTI NG: UNKNOWN Performed By: #### 1 0165 #### [facility] [address] [place] [address] Template Checker: Saurabh Noriega MD Creatinine [Mass/Vol] 1.07 mg/dL Normal 0.70-1.33 [facility] Comment on above: Order Comment: FASTI NG: UNKNOWN Result Comment: For patients >49 years of age, the reference limit for Creatinine is approximately 13% higher for people identified as -Cameroonian. Performed By: #### 1 0165 #### [facility] [address], [address] [place] [address] Template Checker: Saurabh Noriega MD eGFR NON-AFR. DUTCH 76 mL/min/1.73m2 Normal > OR = 60 [facility] Comment on above: Order Comment: FASTI NG: UNKNOWN Performed By: #### 1 0165 #### [facility] [address], [address] [place] [address] Template Checker: Saurabh Noriega MD GFR/1.73 sq M.predicted among blacks MDRD (S/P/Bld) [Vol rate/Area] 88 mL/min/{1.73_m2} Normal > OR = 60 [facility] Comment on above: Order Comment: FASTI NG: UNKNOWN Performed By: #### 1 0165 #### [facility] [address], [address] [place] [address] Template Checker: Saurabh Noriega MD Glucose [Mass/Vol] 89 mg/dL Normal 65-99 [facility] Comment on above: Order Comment: FASTI NG: UNKNOWN Result Comment: Fasting reference interval Performed By: #### 1 0165 #### [facility] [address], [address] [place] [address] Template Checker: Saurabh Noriega MD Potassium [Moles/Vol] 4.3 mmol/L Normal 3.5-5.3 [facility] Comment on above: Order Comment: FASTI NG: UNKNOWN Performed By: #### 1 0165 #### [facility] [address], [address] [place] [address] Template Checker: Saurabh Noriega MD Sodium [Moles/Vol] 131 mmol/L Low 135-146 [facility] Comment on above: Order Comment: FASTI NG: UNKNOWN Performed By: #### 1 0165 #### [facility] [address], [address] [place] [address] Template Checker: Saurabh Noriega MD Urea nitrogen [Mass/Vol] 17 mg/dL Normal 7-25 [facility] Comment on above: Order Comment: FASTI NG: UNKNOWN Performed By: #### 1 0165 #### [facility] [address] [address] Template Checker: Saurabh Noriega MD [facility] 01-01-2021 Albumin [Mass/Vol] 4.5 g/dL Normal 3.6-5.1 [facility] Comment on above: Performed By: #### 1 0231, 5363, 7600 #### [facility] of [address] [address] Template Checker: Saurabh Noriega MD Albumin/Globulin [Mass ratio] 1.9 {ratio} Normal 1.0-2.5 [facility] Comment on above: Performed By: #### 1 0231, 5363, 7600 #### [facility] of [address] [place] [address] Template Checker: Saurabh Noriega MD ALP [Catalytic activity/Vol] 73 U/L Normal 35-144 [facility] Comment on above: Performed By: #### 1 0231, 5363, 7600 #### [facility] [address] [place] [address] Template Checker: Saurabh Noriega MD ALT [Catalytic activity/Vol] 20 U/L Normal 9-46 [facility] Comment on above: Performed By: #### 1 0231, 5363, 7600 #### [facility] [address] [address] Template Checker: Saurabh Noriega MD AST [Catalytic activity/Vol] 26 U/L Normal 10-35 [facility] Comment on above: Performed By: #### 1 0231, 5363, 7600 #### [facility] [address] [address] Template Checker: Saurabh Noriega MD Bilirubin [Mass/Vol] 0.3 mg/dL Normal 0.2-1.2 [facility] Comment on above: Performed By: #### 1 023, 5363, 7600 #### [facility] [address] [place] [address] Template Checker: Saurabh Noriega MD BUN/CREATININE RATIO NOT APPLICABLE Normal 6-22 [facility] Comment on above: Performed By: #### 1 023, 5363, 7600 #### [facility] [address] [place] [address] Template Checker: Saurabh Noriega MD Calcium [Mass/Vol] 9.6 mg/dL Normal 8.6-10.3 [facility] Comment on above: Performed By: #### 1 023, 5363, 7600 #### [facility] [address] [place] [address] Template Checker: Saurabh Noriega MD Chloride [Moles/Vol] 98 mmol/L Normal 98-110 [facility] Comment on above: Performed By: #### 1 023, 5363, 7600 #### [facility] [address] [place] [address] Template Checker: Saurabh Noriega MD CO2 [Moles/Vol] 25 mmol/L Normal 20-32 [facility] Comment on above: Performed By: #### 1 023, 5363, 7600 #### [facility] [address] [place] [address] Template Checker: Saurabh Noriega MD Creatinine [Mass/Vol] 1.14 mg/dL Normal 0.70-1.33 [facility] Comment on above: Result Comment: For patients >49 years of age, the reference limit for Creatinine is approximately 13% higher for people identified as -Cameroonian. Performed By: #### 1 0231, 5363, 7600 #### [facility] [address] [place] [address] Template Checker: Saurabh Noriega MD eGFR NON-AFR. DUTCH 70 mL/min/1.73m2 Normal > OR = 60 [facility] Comment on above: Performed By: #### 1 023, 5363, 7600 #### [facility] [address] [address] Template Checker: Saurabh Noriega MD GFR/1.73 sq M.predicted among blacks MDRD (S/P/Bld) [Vol rate/Area] 81 mL/min/{1.73_m2} Normal > OR = 60 [facility] Comment on above: Performed By: #### 1 0231, 5363, 7600 #### [facility] of [address], [address] [place] [address] Template Checker: Saurabh Noriega MD Globulin (S) [Mass/Vol] 2.4 g/dL Normal 1.9-3.7 [facility] Comment on above: Performed By: #### 1 230, 5363, 7600 #### [facility] [address] [address] Template Checker: Saurabh Noriega MD Glucose [Mass/Vol] 82 mg/dL Normal 65-99 [facility] Comment on above: Result Comment: Fasting reference interval Performed By: #### 1 023, 5363, 7600 #### [facility] [address] [address] Template Checker: Saurabh Noriega MD Potassium [Moles/Vol] 4.6 mmol/L Normal 3.5-5.3 [facility] Comment on above: Performed By: #### 1 023, 5363, 7600 #### [facility] [address] [address] Template Checker: Saurabh Noriega MD Protein [Mass/Vol] 6.9 g/dL Normal 6.1-8.1 [facility] Comment on above: Performed By: #### 1 0231, 5363, 7600 #### [facility] [address] [address] Template Checker: Saurabh Noriega MD Sodium [Moles/Vol] 132 mmol/L Low 135-146 [facility] Comment on above: Performed By: #### 1 0231, 5363, 7600 #### [facility] [address] [place] [address] Template Checker: Saurabh Noriega MD Urea nitrogen [Mass/Vol] 20 mg/dL Normal 7-25 [facility] Comment on above: Performed By: #### 1 0231, 5363, 7600 #### [facility] [address] [place] [address] Template Checker: Saurabh Noriega MD LIPID PANEL, [facility] Cholesterol [Mass/Vol] 156 mg/dL Normal <200 [facility] Comment on above: Order Comment: FASTI NG:YES FASTING: YES Performed By: #### 1 0231, 5363, 7600 #### [facility] [address] [place] [address] Template Checker: Saurabh Noriega MD Cholesterol in HDL [Mass/Vol] 58 mg/dL Normal > OR = 40 [facility] Comment on above: Order Comment: FASTI NG:YES FASTING: YES Performed By: #### 1 0231, 5363, 7600 #### [facility] [address] [place] [address] Template Checker: Saurabh Noriega MD Cholesterol in LDL [Mass/Vol] 79 mg/dL Normal [facility] Comment on above: Order Comment: FASTI NG:YES FASTING: YES Result Comment: Refe rence range: <100 Desirable range <100 mg/dL for primary prevention; <70 mg/dL for patients with CHD or diabetic patients with > or = 2 CHD risk factors. LDL-C is now calculated using the Clarence calculation, which is a validated novel method providing better accuracy than the Friedewald equation in the estimation of LDL-C. Irineo PADILLA et al. JAIME. 2013;310(19): 0830-8828 (http://education.PenBoutique.CallResto/faq/LIZ673) Performed By: #### 1 0231, 5363, 7600 #### [facility] [address] [address] [place] [address] Template Checker: Saurabh Noriega MD Cholesterol.total /Cholesterol in HDL [Mass ratio] 2.7 {ratio} Normal <5.0 [facility] Comment on above: Order Comment: FASTI NG:YES FASTING: YES Performed By: #### 1 023, 5363, 7600 #### [facility] [address], [address] [place] [address] Template Checker: Saurabh Noriega MD NON HDL CHOLESTEROL 98 mg/dL (calc) Normal <130 [facility] Comment on above: Order Comment: FASTI NG:YES FASTING: YES Result Comment: For patients with diabetes plus 1 major ASCVD risk factor, treating to a non-HDL-C goal of <100 mg/dL (LDL-C of <70 mg/dL) is considered a therapeutic option. Performed By: #### 1 023, 5391, 7600 #### [facility] [address] [place] [address] Template Checker: Saurabh Noriega MD Triglyceride [Mass/Vol] 103 mg/dL Normal <150 [facility] Comment on above: Order Comment: FASTI NG:YES FASTING: YES Performed By: #### 1 023, 5363, 7600 #### [facility] [address] [place] [address] Template Checker: Saurabh Noriega MD PSA, TOTALon 01-01-2021 PSA, TOTAL 0.07 ng/mL Normal < OR = 4.00 [facility] Comment on above: Result Comment: The total PSA value from this assay system is standardized against the WHO standard. The test result will be approximately 20% lower when compared to the equimolar-standardized total PSA (Italo [place]). Comparison of serial PSA results should be interpreted with this fact in mind. This test was performed using the Siemens chemiluminescent method. Values obtained from different assay methods cannot be used interchangeably. PSA levels, regardless of value, should not be interpreted as absolute evidence of the presence or absence of disease. Performed By: #### 1 0421, 5363, 7600 #### [facility] [address] [id number] Template Checker: Saurabh Noriega MD Vital Signs Date Time Vital Sign Value Performing Clinician Facility 06-01-2022 11:40-0500 Body height 175.26 cm Rani Fraga Other [facility] Other 06-01-2022 11:40-0500 Body mass index (BMI) [Ratio] 36.18 kg/m2 Rani Fraga Other [facility] Other 06-01-2022 11:40-0500 Body temperature 99.3 [degF] Rani Fraga Other [facility] Other 06-01-2022 11:40-0500 Body weight 111.13 kg Rani Fraga Other [facility] Other 06-01-2022 11:40-0500 Respiratory rate 18 /min Rani Fraga Other [facility] Other 06-01-2022 11:40-0500 SaO2% (BldA) [Mass fraction] 94 % Rani Fraga Other [facility] Other 09-10-2021 08:35-0400 Diastolic blood pressure 86 mm[Hg] Syed WELL[facility] 09-10-2021 08:35-0400 Mean blood pressure 100 mm[Hg] Syed WELLS [facility] 09-10-2021 08:35-0400 Systolic blood pressure 129 mm[Hg] Syed WELLS [facility] 09-10-2021 08:10-0400 Blood Pressure Location Syed WELLS [facility] [place] 09-10-2021 08:10-0400 Diastolic blood pressure 88 mm[Hg] Syed WELLS [facility] [place] 09-10-2021 08:10-0400 Heart rate 78 /min [facility] 09-10-[facility]21 08:10-0400 Respiratory rate 16 /min [facility] 09-10-2021 08:10-0400 Systolic blood pressure 159 mm[Hg] Syed WELLS [facility] Encounters Encounter Date Encounter Type Care Provider Facility Start: 10-09-2023 ambulatory Syed WELLS [facility]ili [facility] [place] Start: 09-12-2023 ambulatory Syed WELLS [facility]ili [facility] [place] Start: 08-14-2023 ambulatory Syed WELLS Facili [facility] [place] Start: 07-17-2023 End: 07-18-2023 ambulatory Syed WELLS Facility:[facility] [place] Start: 07-17-2023 End: 07-17-2023 Patient encounter procedure [facility] Start: 06-20-2023 End: 06-21-2023 ambulatory Syed WELLS Facility:[facility] [place] Start: 05-22-2023 End: 05-23-2023 ambulatory Syed WELLS Facility:[facility] [place] Start: 05-22-2023 End: 05-22-2023 Patient encounter procedure Syed Sinclair [facility] Start: 05-04-2023 Stephen Laith Rafael dewey DO [facility] Start: 04-24-2023 End: 04-25-2023 ambulatory Syed Yahir WELLS Facility:[facility] [place] Start: 03-20-2023 End: 03-21-2023 ambulatory Syed R WELLS Facility:[facility] [place] Start: 03-20-2023 End: 03-20-2023 Patient encounter procedure Syed R WELLS [facility] Start: 02-20-2023 End: 02-21-2023 ambulatory Syed R WELLS Facility:[facility] [place] Start: 02-20-2023 End: 02-20-2023 Patient encounter procedure Syed R WELLS [facility] Start: 01-23-2023 End: 01-24-2023 ambulatory Syed R WELLS Facility:[facility] [place] Start: 12-26-2022 End: 12-27-2022 ambulatory Syed R WELLS Facility:[facility] [place] Start: 12-26-2022 End: 12-26-2022 Patient encounter procedure Syed R WELLS [facility] Start: 11-28-2022 End: 11-29-2022 ambulatory Syed R WELLS Facility:[facility] [place] Start: 11-28-2022 End: 11-28-2022 Patient encounter procedure [facility] R [facility] Start: 10-31-2022 End: 11-01-2022 ambulatory Syed WELLS Facility:[facility] Start: 10-31-2022 End: 10-31-2022 Patient encounter procedure Syed WELLS [facility] Start: 10-03-2022 End: 10-04-2022 ambulatory Syed WELLS Facility:[facility] Start: 10-03-2022 End: 10-03-2022 Patient encounter procedure Syed WELLS [facility] Start: 09-05-2022 End: 09-06-2022 ambulatory Syed WELLS [facility] Start: 09-05-2022 End: 09-06-2022 ambulatory Syed WELLS Facility:[facility] Start: 08-22-2022 End: 08-23-[address] SYED WELLS . Facility: Start: 08-08-2022 End: 08-09-2022 ambulatory Syed WELLS Facility:[facility] Start: 08-08-2022 End: 08-08-2022 Patient encounter procedure Syed WELLS [facility] Start: 07-11-2022 End: 07-11-2022 Patient encounter procedure [facility]LL[facility] Start: 06-13-2022 End: 06-13-2022 Patient encounter procedure Syed WELLS [facility] Start: 06-01-2022 End: 06-01-2022 ambulatory Rani Fraga Other [employer] [facility] Other Start: 06-01-2022 Office outpatient vi sit 15 minutes Rani Fraga [facility] Start: 05-16-2022 End: 05-16-2022 Patient encounter procedure Syed WELLS [facility] Start: 04-19-2022 End: 04-19-2022 Patient encounter procedure CARLINE Robina KEVIN [facility] Start: 03-21-2022 End: 03-21-2022 Patient encounter procedure Syed WELLS [facility] Start: 02-23-2022 End: 02-24-[address] SYED WELLS . Facility:[facility] Start: 02-21-2022 End: 02-21-2022 Patient encounter procedure Syed WELLS [facility] Start: 02-07-2022 End: 02-08-[address] SYED WELLS . Facility:[facility] Start: 02-04-2022 End: 02-05-[address] LAITH DICKERSON Facility:[facility] Start: 01-24-2022 End: 01-24-2022 Patient encounter procedure Syed WELLS [facility] Start: 12-24-2021 End: 12-24-2021 Patient encounter procedure Syed WELLS [facility] Start: 10-29-2021 End: 10-29-2021 Patient encounter procedure Syed WELLS [facility] Start: 10-04-2021 End: 10-04-2021 Patient encounter procedure Syed WELLS [facility] Start: 09-10-2021 End: 09-10-2021 Patient encounter procedure Syed WELLS [facility] Start: 08-31-2021 End: 09-01-[address] SYED WELLS . Facility: Procedures Date Procedure Procedure Detail Performing Clinician Start: 03-13-2023 Adult depression scr eening assessment Laith Dickerson DO Work Phone: Start: 02-04-[address] RAUL WELLS . Comment on above: Result Comment: Prev iously reported as: <4.00 On 02/04/2022 16:57 By CV2 Performed By: #### P [facility] #### [facility] [address] [place] [address] Dr. Ying Spencer Start: 03-29-2019 Excision of cyst Raul WELLS Comment on above: EXCISION CYST RIGHT UPPER BACK Start: 03-08-2019 Arthroscopy of knee Cathie terri WELLS Comment on above: right Start: 04-17-2018 Arthroscopy of knee Cathie WELLS Start: 08-16-2016 Cystoscopy Syed BYRNE Start: 03-17-2015 Repair of umbilical hernia Syed TAMMY Start: 11-19-2013 Colonoscopy Laith Shahriar fernandez DO Work Phone: Appendectomy Syedterri WELLS Colonoscopy Syedterri WELLS lacerated tendon lef t wrist Syed WELLS Urodynamic studies Syed NGUYEN Plan of Treatment Date Care Activity Detail Author Start: 03-13-2024 Adult BMI Screening Adult BMI Screen ing [facility] Start: 03-13-2024 Depression Screening Depression Scre ening [facility] Start: 03-13-2024 Tobacco Screening Tobacco Screening [facility] Start: 11-20-2023 Screening for malign ant neoplasm of colon Colonoscopy [facility] Start: 12-16-2022 COVID-19 Vaccine () COVID-19 Vaccine () [facility] Start: 12-16-2022 Influenza vaccination Influenza Vacc ine [facility] Start: 1980 DTaP,Tdap and Td Vaccines (1 - Tdap) DTaP,Tdap and Td Vaccines (1 - Tdap) [facility] Start: 09-28-1979 Adult BMI Follow Up Plan Adult BMI Follow Up Plan [facility] Immunizations Immunization Date Immunization Notes Care Provider Fa cilimo 02-21-2022 influenza virus vaccine, unspecified formulation Syed WELLS [facility] 02-21-2022 influenza, injectabl e, quadrivalent, preservative free Laith Bessarceliazuleima DO Work Phone: [facility] 03-10-2021 SARS-CoV-2 (COVID-19 ) mRNA BNT-162b2 vax Syed WELLS [facility] 07-21-2020 SARS-CoV-2 (COVID-19 ) mRNA BNT-162b2 vax Syed WELLS [facility] 06-30-2020 SARS-CoV-2 (COVID-19 ) mRNA BNT-162b2 heikex Syed WELLS [facility] 04-17-2020 SARS-CoV-2 (COVID-19 ) mRNA BNT-162b2 heikex Syed WELLS [facility] Comment on above: Result Comment: pt h as had 3 shots to date but does not know the date 02-12-2020 zoster vaccine recombinant Chromatik [facility] 12-13-2019 influenza virus vaccine, unspecified formulation Syed brand eins Verlag [facility] 12-13-2019 influenza, injectabl e, quadrivalent, preservative free Laith Furlong DO Work Phone: [facility] 12-13-2019 zoster vaccine recombinant [employer] [facility] 02-04-2019 influenza virus vaccine, unspecified formulation Syed brand eins [employer] [facility] 02-04-2019 influenza, injectabl e, quadrivalent, preservative free Laith Furlong DO Work Phone: [facility] 01-27-2018 influenza virus vaccine, unspecified formulation [employer] [facility] 01-27-2018 influenza, seasonal, injectable, preservative free Laith Furlong DO Work Phone: [facility] 01-20-2017 influenza virus vaccine, unspecified formulation [employer] [facility] 01-20-2017 influenza, seasonal, injectable, preservative free Laith Furlong DO Work Phone: [facility] 01-13-2016 influenza virus vaccine, unspecified formulation Syed brand [employer] [facility] 01-13-2016 influenza, seasonal, injectable, preservative free Laith Furlong DO Work Phone: [facility] flu vacc [id number] 6 mos up,PF, (FLUARIX QUAD [id number], PF,) 60 mcg (15 mcg x 4)/0.5 mL syringe Laith Dickerson DO Work Phone: [employer] Payers Date Payer Category Payer Unknown [employer] [id number] 2021-Present [phone] [address] [place] [address] [id number] 1961 Unknown [id number] 2.16.840.1.547445.3.579.2.593 1961 Unknown [id number] 2.16.840.1.390549.3.579.2.593 1961 Unknown [id number] 2.16.840.1.128604.3.579.2.593 1961 Unknown [id number] 2.16.840.1.120783.3.579.2.593 1961 Unknown [id number] 2.16.840.1.098638.3.579.2.593 1961 Unknown [id number] 2.16.840.1.351789.3.579.2.727 1961 Unknown [id number] 2.16.840.1.531101.3.579.2.727 1961 Unknown [id number] 2.16.840.1.023068.3.579.2.727 1961 Unknown [id number] 2.16.840.1.357605.3.579.2.727 1961 Unknown [id number] 2.16.840.1.871604.3.579.2.727 1961 Unknown [id number] 2.16.840.1.767130.3.579.2.727 1961 Unknown [id number] 2.16.840.1.206273.3.579.2.727 1961 Unknown [id number] 2.16.840.1.519533.3.579.2. 1961 Unknown [id number] 2.16.840.1.571549.3.579.2.72 1961 Unknown [id number] 2.16.840.1.461910.3.579.2. 1961 Unknown [id number] 2.16.840.1.014152.3.579.2. 1961 Unknown [id number] 2.16.840.1.419878.3.579.2. 1961 Unknown [id number] 2.16.840.1.842573.3.579.2. 1961 Unknown [id number] 2.16.840.1.831822.3.579.2. 1961 Unknown [id number] 2.16.840.1.841393.3.579.2. 1961 Unknown [id number] 2.16.840.1.558914.3.579.2.7 1961 Unknown [id number] 2.16.840.1.014875.3.579.2.727 1959 Unknown [id number] 2.16.840.1.955761.19 Social History Date Type Detail Facility Start: 09-10-2021 End: 04-24-2023 Tobacco smoking status Ex-smoker (finding) [facility] Start: 03-13-2023 Sex Assigned At Male [facility] Start: 03-08-[address] [facility] Never smoked tobacco [facility] Start: 03-08-2022 Tobacco use and exposure Smoke less tobacco non-user [facility] Start: 03-13-2023 Alcohol intake Current drinke r of alcohol (finding) [facility] Start: 03-13-2023 Alcohol intake [facility] Has the Coin, or [employer] threatened to shut off services in your home in past 12Mo No [facility] Do you belong to any clubs or organizations such as scientology groups, unions, fraternal or athletic groups, or school groups? Yes [facility] Are you now , , , , never or living with a partner? [facility] How often to you hav e a drink containing alcohol? 2-3 time sa week [facility] How many standard dr inks containing alcohol do you have on a typical day? 10 or more [facility] How often do you hav e 6 or more drinks on 1 occasion? Weekly [facility] How hard is it for y ou to pay for the very basics like food, housing, medical care, and heating Not hard at all [facility] Do you feel stress - tense, restless, nervous, or anxious, or unable to sleep at night because your mind is troubled all the time - these days [OSQ] Not at all [facility] Start: 1960 Sex Assigned At Not on file [facility] Functional Status Date Assessment Result Facility 02-21-2022 Functional Status N/A [facility] Clinical Notes 09-10-2021 to 06-01-2022 Note Date & Type Note Facility 06-01-2022 Evaluation note Encounter Date Diagnosis Assessment Notes May, Bronchitis (ICD-10 - J40) Acute bronchitis material was printed Drink plenty fluids, get plenty of rest. Continue your sbsp-wqp-bumap er cold medications. Take the prednisone as prescribed until gone. Use the albuterol inhaler as prescribed as needed for cough or shortness of breath. Follow-up with your family physician if no improvement in 2 to 3 days. Off work today and tomorrow. [employer] Other 11-07-2022 Hospital Discharge instructions Patient Education 02/21/2022 16:26:53 Erectile Dysfunction Erectile Dysfunction Erectile dysfunction (ED) is the inability to get or keep an erection in order to have sexual intercourse. Erectile dysfunction may include: Inability to get an erection. Lack of enough hardness of the erection to allow penetration. Loss of the erection before sex is finished. What are the causes? This condition may be caused by: Certain medicines, such as: ?Pain relievers. ?Antihistamines. ?Antidepressants. ?Blood pressure medicines. ?Water pills (diuretics). ?Ulcer medicines. ?Muscle relaxants. ?Drugs. Excessive drinking. Psychological causes, such as: ?Anxiety. ?Depression. ?Sadness. ?Exhaustion. ?Performance fear. ?Stress. Physical causes, such as: ?Artery problems. This may include diabetes, smoking, liver disease, or atherosclerosis. ?High blood pressure. ?Hormonal problems, such as low testosterone. ?Obesity. ?Nerve problems. This may include back or pelvic injuries, diabetes mellitus, multiple sclerosis, or Parkinson disease. What are the signs or symptoms? Symptoms of this condition include: Inability to get an erection. Lack of enough hardness of the erection to allow penetration. Loss of the erection before sex is finished. Normal erections at some times, but with frequent unsatisfactory episodes. Low sexual satisfaction in either partner due to erection problems. A curved penis occurring with erection. The curve may cause pain or the penis may be too curved to allow for intercourse. Never having nighttime erections. How is this diagnosed? This condition is often diagnosed by: Performing a physical exam to find other diseases or specific problems with the penis. Asking you detailed questions about the problem. Performing blood tests to check for diabetes mellitus or to measure hormone levels. Performing other tests to check for underlying health conditions. Performing an ultrasound exam to check for scarring. Performing a test to check blood flow to the penis. Doing a sleep study at home to measure nighttime erections. How is this treated? This condition may be treated by: Medicine taken by mouth to help you achieve an erection (oral medicine). Hormone replacement therapy to replace low testosterone levels. Medicine that is injected into the penis. Your health care provider may instruct you how to give yourself these injections at home. Vacuum pump. This is a pump with a ring on it. The pump and ring are placed on the penis and used to create pressure that helps the penis become erect. Penile implant surgery. In this procedure, you may receive: ?An inflatable implant. This consists of cylinders, a pump, and a reservoir. The cylinders can be inflated with a fluid that helps to create an erection, and they can be deflated after intercourse. ?A semi-rigid implant. This consists of two silicone rubber rods. The rods provide some rigidity. They are also flexible, so the penis can both curve downward in its normal position and become straight for sexual intercourse. Blood vessel surgery, to improve blood flow to the penis. During this procedure, a blood vessel from a different part of the body is placed into the penis to allow blood to flow around (bypass) damaged or blocked blood vessels. Lifestyle changes, such as exercising more, losing weight, and quitting smoking. Follow these instructions at home: Medicines Take anjj-ubs-ykuqaaw and prescription medicines only as told by your health care provider. Do not increase the dosage without first discussing it with your health care provider. If you are using self-injections, perform injections as directed by your health care provider. Makesure to avoid any veins that are on the surface of the penis. After giving an injection, apply pressure to the injection site for 5 minutes. General instructions Exercise regularly, as directed by your health care provider. Work with your health care provider to lose weight, if needed. Do not use any products that contain nicotine or tobacco, such as cigarettes and e-cigarettes. If you need help quitting, ask your health care provider. Before using a vacuum pump, read the instructions that come with the pump and discuss any questionswith your health care provider. Keep all follow-up visits as told by your health care provider. This is important. Contact a health care provider if: You feel nauseous. You vomit. Get help right away if: You are taking oral or injectable medicines and you have an erection that lasts longer than 4 hours. If your health care provider is unavailable, go to the nearest emergency room for evaluation. An erection that lasts much longer than 4 hours can result in permanent damage to your penis. You have severe pain in your groin or abdomen. You develop redness or severe swelling of your penis. You have redness spreading up into your groin or lower abdomen. You are unable to urinate. You experience chest pain or a rapid heart beat (palpitations) after taking oral medicines. Summary Erectile dysfunction (ED) is the inability to get or keep an erection during sexual intercourse. This problem can usually be treated successfully. This condition is diagnosed based on a physical exam, your symptoms, and tests to determine the cause. Treatment varies depending on the cause, and may include medicines, hormone therapy, surgery, orvacuum pump. You may need follow-up visits to make sure that you are using your medicines or devices correctly. Get help right away if you are taking or injecting medicines and you have an erection that lasts longer than 4 hours. This information is not intended to replace advice given to you by your health care provider. Make sure you discuss any questions you have with your health care provider. Document Released: 03/31/2001 Document Revised: 03/16/2018 Document Reviewed: 04/19/2017 [employer] Patient Education 2020 [employer]. Follow Up Care 01/24/2022 15:34:27 With:TAMMY RUDOLPH, Syed Sinclair, URL Address: [facility] [address] , [place] [address]- [phone] When:08/21/2022 [facility] 05-27-2022 Hospital Discharge instructions Patient Education 09/10/2021 08:44:38 Benign Prostatic Hyperplasia Benign Prostatic Hyperplasia Benign prostatic hyperplasia (BPH) is an enlarged prostate gland that is caused by the normal agingprocess and not by cancer. The prostate is a walnut-sized gland that is involved in the production of semen. It is located in front of the rectum and below the bladder. The bladder stores urine and the urethra is the tube that carries the urine out of the body. The prostate may get bigger as a man gets older. An enlarged prostate can press on the urethra. This can make it harder to pass urine. The build-up of urine in the bladder can cause infection. Back pressure and infection may progress to bladder damage and kidney (renal) failure. What are the causes? This condition is part of a normal aging process. However, not all men develop problems from this condition. If the prostate enlarges away from the urethra, urine flow will not be blocked. If it enlarges toward the urethra and compresses it, there will be problems passing urine. What increases the risk? This condition is more likely to develop in men over the age of 50 years. What are the signs or symptoms? Symptoms of this condition include: Getting up often during the night to urinate. Needing to urinate frequently during the day. Difficulty starting urine flow. Decrease in size and strength of your urine stream. Leaking (dribbling) after urinating. Inability to pass urine. This needs immediate treatment. Inability to completely empty your bladder. Pain when you pass urine. This is more common if there is also an infection. Urinary tract infection (UTI). How is this diagnosed? This condition is diagnosed based on your medical history, a physical exam, and your symptoms. Tests will also be done, such as: A post-void bladder scan. This measures any amount of urine that may remain in your bladder after you finish urinating. A digital rectal exam. In a rectal exam, your health care provider checks your prostate by putting a lubricated, gloved finger into your rectum to feel the back of your prostate gland. This exam detects the size of your gland and any abnormal lumps or growths. An exam of your urine (urinalysis). A prostate specific antigen (PSA) screening. This is a blood test used to screen for prostate cancer. An ultrasound. This test uses sound waves to electronically produce a picture of your prostate gland. Your health care provider may refer you to a specialist in kidney and prostate diseases (urologist). How is this treated? Once symptoms begin, your health care provider will monitor your condition (active surveillance or watchful waiting). Treatment for this condition will depend on the severity of your condition. Treatment may include: Observation and yearly exams. This may be the only treatment needed if your condition and symptoms are mild. Medicines to relieve your symptoms, including: ?Medicines to shrink the prostate. ?Medicines to relax the muscle of the prostate. Surgery in severe cases. Surgery may include: ?Prostatectomy. In this procedure, the prostate tissue is removed completely through an open incision or with a laparoscope or robotics. ?Transurethral resection of the prostate (TURP). In this procedure, a tool is inserted through the opening at the tip of the penis (urethra). It is used to cut away tissue of the inner core of the prostate. The pieces are removed through the same opening of the penis. This removes the blockage. ?Transurethral incision (TUIP). In this procedure, small cuts are made in the prostate. This lessens the prostate's pressure on the urethra. ?Transurethral microwave thermotherapy (TUMT). This procedure uses microwaves to create heat. The heat destroys and removes a small amount of prostate tissue. ?Transurethral needle ablation (TUNA). This procedure uses radio frequencies to destroy and remove a small amount of prostate tissue. ?Interstitial laser coagulation (ILC). This procedure uses a laser to destroy and remove a small amount of prostate tissue. ?Transurethral electrovaporization (TUVP). This procedure uses electrodes to destroy and remove a small amount of prostate tissue. ?Prostatic urethral lift. This procedure inserts an implant to push the lobes of the prostate away from the urethra. Follow these instructions at home: Take wmcz-xcz-idnetzo and prescription medicines only as told by your health care provider. Monitor your symptoms for any changes. Contact your health care provider with any changes. Avoid drinking large amounts of liquid before going to bed or out in public. Avoid or reduce how much caffeine or alcohol you drink. Give yourself time when you urinate. Keep all follow-up visits as told by your health care provider. This is important. Contact a health care provider if: You have unexplained back pain. Your symptoms do not get better with treatment. You develop side effects from the medicine you are taking. Your urine becomes very dark or has a bad smell. Your lower abdomen becomes distended and you have trouble passing your urine. Get help right away if: You have a fever or chills. You suddenly cannot urinate. You feel lightheaded, or very dizzy, or you faint. There are large amounts of blood or clots in the urine. Your urinary problems become hard to manage. You develop moderate to severe low back or flank pain. The flank is the side of your body between the ribs and the hip. These symptoms may represent a serious problem that is an emergency. Do not wait to see if the symptoms will go away. Get medical help right away. Call your local emergency services (911 in the [place] Do not drive yourself to the hospital. Summary Benign prostatic hyperplasia (BPH) is an enlarged prostate that is caused by the normal aging process and not by cancer. An enlarged prostate can press on the urethra. This can make it hard to pass urine. This condition is part of a normal aging process and is more likely to develop in men over the age of 50 years. Get help right away if you suddenly cannot urinate. This information is not intended to replace advice given to you by your health care provider. Make sure you discuss any questions you have with your health care provider. Document Released: 04/03/2006 Document Revised: 02/26/2019 Document Reviewed: 05/08/2017 [employer] Patient Education 2020 [employer]. Follow Up Care 08/16/2021 14:50:02 With:TAMMY RUDOLPH, Syed Sinclair, URL Address: [facility] [address], [place] [address]- When:03/13/2022 [facility] evaluation + Plan note Future Appointments Appointment Date:10/04/2021 03:00:00 PM Scheduled Provider: Location:[facility] Appointment Type:URO Nurse Visit Diagnostic Tests Pending * Testosterone Level Total 09/10/21 Future Scheduled Tests Laboratory* CBC w/ Auto Diff 09/10/21 [facility] evaluation + Plan note Future Appointments Appointment Date:11/01/2021 03:00:00 PM Scheduled Provider: Location:[facility] Appointment Type:URO Nurse Visit Future Scheduled Tests Laboratory* CBC w/ Auto Diff 09/10/21 [facility] evaluation + Plan note Future Appointments Appointment Date:11/26/2021 08:00:00 AM Scheduled Provider: Location:[facility] Appointment Type:URO Nurse Visit Future Scheduled Tests Laboratory* CBC w/ Auto Diff 09/10/21 [facility] evaluation + Plan note Future Appointments Appointment Date:01/24/2022 02:45:00 PM Scheduled Provider: Location:[facility] Appointment Type:URO Nurse Visit Future Scheduled Tests Laboratory* CBC w/ Auto Diff 09/10/21 [facility] evaluation + Plan note Future Appointments Appointment Date:02/21/2022 03:30:00 PM Scheduled Provider:Syed WELLS MD Location:[facility] Appointment Type:URO Office Visit Diagnostic Tests Pending * Testosterone Level Total 01/24/22 Future Scheduled Tests Laboratory* CBC w/ Auto Diff 09/10/21 [facility] evaluation + Plan note Future Appointments Appointment Date:03/21/2022 02:45:00 PM Scheduled Provider: Location:[facility] Appointment Type:URO Nurse Visit Diagnostic Tests Pending * CBC w/ Auto Diff 02/21/22 Future Scheduled Tests Laboratory* CBC w/ Auto Diff 09/10/21 [facility] evaluation + Plan note Future Appointments Appointment Date:04/19/2022 02:45:00 PM Scheduled Provider: Location:[facility] Appointment Type:URO Nurse Visit Future Scheduled Tests Laboratory* CBC w/ Auto Diff 09/10/21 [facility] evaluation + Plan note Future Appointments Appointment Date:05/16/2022 02:45:00 PM Scheduled Provider: Location:[facility] Appointment Type:URO Nurse Visit Future Scheduled Tests Laboratory* CBC w/ Auto Diff 09/10/21 [facility] evaluation + Plan note Future Appointments Appointment Date:06/13/2022 02:45:00 PM Scheduled Provider: Location:[facility] Appointment Type:URO Nurse Visit Future Scheduled Tests Laboratory* CBC w/ Auto Diff 09/10/21 [facility] evaluation + Plan note Future Appointments Appointment Date:07/11/2022 02:45:00 PM Scheduled Provider: Location:[facility] Appointment Type:URO Nurse Visit Future Scheduled Tests Laboratory* CBC w/ Auto Diff 09/10/21 [facility] evaluation + Plan note Future Appointments Appointment Date:08/08/2022 02:45:00 PM Scheduled Provider: Location:[facility] Appointment Type:URO Nurse Visit Future Scheduled Tests Laboratory* CBC w/ Auto Diff 09/10/21 [facility] evaluation + Plan note Future Appointments Appointment Date:09/05/2022 02:30:00 PM Scheduled Provider:Syed WELLS MD Location:[facility] Appointment Type:URO Office Visit Future Scheduled Tests Laboratory* CBC w/ Auto Diff 09/10/21 [facility] evaluation + Plan note Future Appointments Appointment Date:10/31/2022 02:45:00 PM Scheduled Provider: Location:[facility] Appointment Type:URO Nurse Visit [facility] evaluation + Plan note Future Appointments Appointment Date:11/28/2022 02:45:00 PM Scheduled Provider: Location:[facility] Appointment Type:URO Nurse Visit [facility] evaluation + Plan note Future Appointments Appointment Date:12/26/2022 02:45:00 PM Scheduled Provider: Location:[facility] Appointment Type:URO Nurse Visit [facility] evaluation + Plan note Future Appointments Appointment Date:01/23/2023 02:30:00 PM Scheduled Provider: Location:[facility] Appointment Type:URO Nurse Visit [facility] evaluation + Plan note Future Appointments Appointment Date:03/20/2023 02:30:00 PM Scheduled Provider: Location:[facility] Appointment Type:URO Nurse Visit Appointment Date:04/21/2023 08:45:00 AM Scheduled Provider:Syed WELLS MD Location:[facility] Appointment Type:URO Office Visit [facility] evaluation + Plan note Future Appointments Appointment Date:04/24/2023 03:00:00 PM Scheduled Provider:Syed WELLS MD Location:[facility] Appointment Type:URO Office Visit [facility] evaluation + Plan note Future Appointments Appointment Date:06/19/2023 02:45:00 PM Scheduled Provider: Location:[facility] Appointment Type:URO Nurse Visit Appointment Date:10/13/2023 08:00:00 AM Scheduled Provider:Syed WELLS MD Location:[facility] Appointment Type:URO Office Visit [facility] evaluation + Plan note Future Appointments Appointment Date:08/14/2023 03:00:00 PM Scheduled Provider: Location:[facility] Appointment Type:URO Nurse Visit Appointment Date:09/12/2023 03:00:00 PM Scheduled Provider: Location:[facility] Appointment Type:URO Nurse Visit Appointment Date:10/09/2023 03:00:00 PM Scheduled Provider:Syed WELLS MD Location:[facility] Appointment Type:URO Office Visit [facility] History general Narrative - Reported* Type Description Date Medical History Anemic Medical History HTN Medical History ED Medical History GERD Medical History Enlarged Prostate Medical History Diverticulitis Surgical History Appendectomy 1979 Surgical History colonoscopy Surgical History hernia repair Surgical History knee arthroscopy right Hospitalization History See past surgical hx [employer] Other Hospital course Narrative No data available for this section [facility] Hospital Discharge instructions No data available for this section [facility] InstructionsNot on filedocumented in this encounter [facility] note No data available for this section [facility] Summary Purpose Family History No Family History Records FoundNo Family History Records Found No data available for this section No data available for this section No data available for this section No data available for this section No Family History Records Found Advance Directives No Advanced Directives Records FoundNo Advanced Directives Records FoundNo Advanced Directives Records Found Additional Source Comments (unrecognized sect ion and content) No Status Records FoundNo Status Records FoundNo Status Records Found INFORMATION SOURCE (unrecogn ized section and content) DATE CREATED AUTHOR 08/22/2021 [facility] DATE CREATED AUTHOR AUTHOR'S ORGANIZ ATION 08/26/2022 [facility] DATE CREATED AUTHOR AUTHOR'S ORGANIZ ATION 07/18/2023 Darryn Cervantes [facility] Care Team (unrecognized sect ion and content) Estate Attorney Relationship Specialty Start Date End Date Laith Dickerson DO [address] [facility], [address] [place] [address] PCP - General Family Medicine 02/02/22 REASON FOR VISIT (unrecogniz ed section and content) Reason Comments Med Refill FOR RECORDS PERTAINING TO PATIENTS WHO ARE OR HAVE BEEN ENROLLED IN A CHEMICAL DEPENDENCY/SUBSTANCEABUSE PROGRAM, SOME INFORMATION MAY BE OMITTED. This clinical summary was aggregated from multiple sources. Caution should be exercised in using it in the provision of clinical care. This summary normalizes information from multiple sources, and as a consequence, information in this document may materially change the coding, format and clinical context of patient data. In addition, data may be omitted in some cases. CLINICAL DECISIONS SHOULD BE BASED ON THE PRIMARY CLINICAL RECORDS. [employer] [facility]. provides no warranty or guarantee of the accuracy or completeness of information in this document.
[2023-09-26 04:08] LABS: Testosterone 226 ng/dL (264-916)
== END 2023-09-25 06:36 | disposition home or self-care (01) ==
LOC: LAB 06:35
PROVIDERS: PCP Family Medicine; Visit Provider Urology
DX: E29.1 Testicular hypofunction (principal)
CPT/HCPCS: 36415; 84403

== ENCOUNTER 2024-03-11 06:48 | Outpatient (OUT) | payer OTHER, SELFPAY ==
--- OUTSIDE RECORDS SUMMARY | 2024-03-11 06:51 | XMS_ITS | CCD ---
Author Organization [facility] Care Team Providers Care Dish Washer Name Role Phone LAITH DICKERSON Primary Care Physician [phone] Rani Fraga Unavailable WELLS ., DR BOYER [...] DR LAITH Hall Primary Care Unavailable Furlong Laith [place] Primary Care Provider TAMMY, Syed Sinclair Attending Unavailable WELLS, Syed Sinclair Attending Unavailable WELLS, Syed Sinclair Attending Unavailable WELLS, Syed Sinclair Attending Unavailable WELLS, [...] cramps, Other (See Comments) [facility] (1 source) levoFLOXacin Drug Allergy 1 [facility] Repository Medications Current Medications Medication Drug Class(es) Dates Sig (Normalized) Sig (Original) acyclovir 400 mg oral tablet (5 sources) Herpesvirus Nucleoside Analog DNA Polymerase Inhibitor, Herpes Simplex Virus Nucleoside Analog DNA Polymerase Inhibitor, Herpes Zoster Virus Nucleoside Analog DNA Polymerase Inhibitor Start: 10-31-2023 acyclovir (ZOVIRAX) 400 mg tablet take 1 tablet twice a day 180 tablet 3 10/31/2023 Active Start: 08-08-2022 End: 05-04-2023 acyclovir (ZOVIRAX) 400 mg t ablet TAKE 1 TABLET TWICE A DAY 180 tablet 1 05/04/2023 Active Acyclovir Active [id number] 200 actuat albuterol 0.09 mg/actuat metered dose inhaler (4 sources) beta2-Adrenergic Agonist Start: 06-01-2022 take 2 puff(s) by mouth four times daily albuterol (PROVENTIL HFA;VENTOLIN HFA) 90 mcg/actuation inhaler inhale 2 puffs by mouth and INTO THE LUNGS four times a day if needed 06/01/2022 Active Start: 06-01-2022 take 2 puff(s) [...] sources) Dihydropyridine Calcium Channel Preston Start: 02-20-2019 amLODIPine (NORVASC) 10 mg tablet TAKE 1 TABLET DAILY 90 tablet 3 03/31/2023 Active amLODIPine Besyl ate Active atorvastatin 20 mg oral tablet (20 sources) HMG-CoA Reductase Inhibitor Start: 02-20-2019 atorvastatin (LIPITOR) 20 mg tablet TAKE 1 TABLET DAILY 90 tablet 3 03/31/2023 Active Fiber Tab (20 sources) Start: 10-03-2018 take 1 tablet by [...] supply, # 10 mL, Refills(s) 3, Pharmacy: [facility], 177, cm, 10/16/20 9:03:00 EDT, Height/Length Dosing, 117, kg, 10/16/20 9:03:00 EDT, Weight Dosing Start Date: 02/08/21 Status: Ordered dicyclomine hydrochloride 20 mg oral tablet (20 sources) Anticholinergic Start: 02-20-2019 take 1 tablet by mouth twice daily dicyclomine 20 mg Tab 20 mg = 1 tab(s), Oral, BID, Other (see comment) Start Date: 02/20/19 Status: Ordered dutasteride 0.5 mg oral capsule (3 sources) 5-alpha Reductase Inhibitor take 1 capsule by mouth in the morning dutasteride (AVODART) 0.5 mg capsule Take 1 capsule (0.5 mg total) by mouth in the morning. Active [id number] 0.3 ml EPINEPHrine 1 mg/ml auto-injector (3 sources) alpha-Adrenergic Agonist, beta-Adrenergic Agonist, Catecholamine EPINEPHrine (EPIPEN) 0.3 mg/0.3 mL auto-injector epinephrine 0.3 mg/0.3 mL injection, auto-injector Active esomeprazole 40 mg delayed release oral capsule (20 sources) Proton Pump Inhibitor Start: 09-13-2023 esomeprazole (NexIUM) 40 mg capsule Indications: Gastroesophageal reflux disease without esophagitis TAKE 1 CAPSULE DAILY 90 capsule 1 09/13/2023 Active Start: 03-17-2023 esomeprazole ( NexIUM) 40 mg capsule Indications: Gastroesophageal reflux disease [...] (20 sources) 5-alpha Reductase Inhibitor Start: 09-28-2021 finasteride (PROSCAR) 5 mg tablet 03/09/2022 Active Start: 09-10-2021 take 1 tablet by bibi once daily finasteride 5 mg Tab 5 mg = 1 tab(s), Oral, Daily, # 90 tab(s), Refills(s) 3 Start Date: 09/10/21 Status: Ordered Finasteride Acti ve Fish Oils (20 sources) Start: 10-03-2018 take 1000 mg by mouth once daily Fish Oil 1,000 mg, Oral, Daily, Refill(s) 0, Prophylaxis Start Date: 10/03/18 Status: Ordered Flonase 0.05 mg/inh [place] (1 source) Start: 03-06-2015 Flonase 0.05 m g/inh [place] 2 spray(s), Nasal, Daily, Refill(s) 0, Sinus symptoms Start Date: 03/06/15 Status: Ordered fluocinolone acetonide 0.1 mg/ml topical oil (3 sources) Corticosteroid Start: 10-25-2022 fluocinolone 0 .01 % oil Indications: Eczema of scalp Apply 1 application. topically in the morning and 1 application. before bedtime. 118.28 mL 1 10/25/2022 Active fluticasone propionate 0.05 mg/actuat metered dose nasal spray (20 sources) Corticosteroid Start: 08-15-2023 take 2 spray(s) nasal route once daily fluticasone propionate (FLONASE) 50 mcg/actuation nasal spray USE 2 SPRAYS NASALLY DAILY 48 g 3 08/15/2023 Active Start: 08-22-2022 take 2 spray(s) nasa l route once daily fluticasone propionate (FLONASE) 50 mcg/actuation nasal spray USE 2 SPRAYS NASALLY DAILY 48 g 3 08/22/2022 Active Start: 03-06-2015 Flonase 0.05 m g/inh [place] 2 spray(s), Nasal, Daily, Refill(s) 0, Sinus symptoms Start Date: 03/06/15 Status: Ordered Flonase Active hydroCHLOROthiazide 12.5 mg / lisinopril 20 mg oral tablet (20 sources) Thiazide Diuretic, Angiotensin Converting Enzyme Inhibitor Start: 03-04-2024 lisinopril-hydroCHLOROthiazi de (PRINZIDE,ZESTORETIC) 20-12.5 mg per tablet TAKE 1 TABLET DAILY 90 tablet 1 03/04/2024 Active Start: 11-29-2013 End: 03-04-2024 lisinopril-hydroCHLOROthiazi de (PRINZIDE,ZESTORETIC) 20-12.5 mg per tablet TAKE 1 TABLET DAILY 90 tablet 3 03/10/2023 03/04/2024 Discontinued Lisinopril-hydro CHLOROthiazide Active lisinopril 20 mg oral tablet (11 sources) Angiotensin Converting Enzyme Inhibitor Start: 01-29-2024 lisinopriL (PRINIVIL,ZESTRIL) 20 mg tablet TAKE 1 TABLET DAILY (TAKE WITH LISINOPRIL/HCTZ 20/12.5 MG DAILY) 90 tablet 01/29/2024 Active Start: 10-31-2023 End: 01-29-2024 lisinopriL (PRINIVIL,ZESTRIL ) 20 mg tablet TAKE 1 TABLET DAILY (TAKE WITH LISINOPRIL/HCTZ 20/12.5 MG DAILY) 90 tablet 10/31/2023 01/29/2024 Discontinued Start: 08-08-2022 End: 05-04-2023 lisinopriL (PRINIVIL,ZESTRIL ) 20 mg tablet TAKE 1 TABLET DAILY (TAKE WITH LISINOPRIL/HCTZ 20/12.5 MG DAILY) 90 tablet 1 05/04/2023 Active 24 hr metoprolol succinate 25 mg extended release oral tablet (20 sources) beta-Adrenergic Preston Start: 03-04-2024 metopr olol succinate XL (TOPROL XL) 25 mg 24 hr tablet TAKE 1 TABLET DAILY 90 tablet 1 03/04/2024 Active Start: 03-10-2023 End: 03-04-2024 metoprolol succinate XL (TOP ROL XL) 25 mg 24 hr tablet TAKE 1 TABLET DAILY 90 tablet 3 03/10/2023 03/04/2024 Discontinued Start: 02-20-2019 take 1 tablet by bibi th once daily Metoprolol succinate 25 mg ER Tablet 25 mg, Oral, Daily, High blood pressure Start Date: 02/20/19 Status: Ordered Start: 02-20-2019 take 1 tablet by bibi once daily Metoprolol succinate 25 mg ER Tablet 25 mg, Oral, Daily, High blood pressure Start Date: 02/20/19 Status: Ordered 24 hr mirabegron 50 mg extended release oral tablet (10 sources) beta3-Adrenergic Agonist Start: 02-21-2022 take 1 tablet by mouth once daily Myrbetriq 50 mg oral tablet, extended release 50 mg = 1 tab(s), Oral, Daily, # 90 tab(s), Refills(s) 3, Pharmacy: [facility], 177, cm, 02/21/22 16:00:00 EST, Height/Length Dosing, 109, kg, 02/21/22 16:00:00 EST, Weight Dosing Start Date: 02/21/22 Status: Ordered Start: 02-21-2022 take 1 tablet by bibi every twenty-four hours mirabegron (MYRBETRIQ) 50 mg tablet extended release 24 hr Take 1 tablet (50 mg total) by mouth. 02/21/2022 Active multivitamin capsule (3 sources) multivitamin cap jimmy daily. Active multivitamin cap jimmy daily. 0 Active naproxen 500 mg oral tablet (20 sources) Nonsteroidal Anti-inflammatory Drug Start: 02-20-2019 take 1 tablet by mouth once daily naproxen 500 mg Tab 500 mg = 1 tab(s), Oral, Daily, Inflammation Start Date: 02/20/19 Status: Ordered oxybutynin chloride 5 mg oral tablet (12 sources) Cholinergic Muscarinic Antagonist Start: 04-30-2021 take 1 tablet by mouth at bedtime as needed oxybutynin 5 mg Tab 5 mg = 1 tab(s), Oral, Bedtime, PRN for urinary discomfort, # 30 tab(s), Refills(s) 6, Pharmacy: [facility], 177, cm, 04/30/21 8:39:00 EST, Height/Length Dosing, 117.2, kg, 04/30/21 8:39:00 EST, Weight Dosing Start Date: 04/30/21 Status: Ordered pimecrolimus 10 mg/ml topical cream (3 sources) Calcineurin Inhibitor Immunosuppressant Start: 03-10-2022 pimecrolimus (ELIDEL) 1 % cream Indications: Eczema, unspecified type Apply 1 application topically in the morning and 1 application before bedtime. 100 g 1 03/10/2022 Active potassium chloride 10 meq extended release oral tablet (20 sources) Start: 03-13-2023 potassium chloride (K-TAB,KLOR-CON) 10 MEQ CR tablet TAKE 1 TABLET DAILY 90 tablet 3 03/13/2023 Active Start: 02-20-2019 take 1 capsule by [facility] once daily potassium chloride 10 mEq Cap-ER 10 mEq = 1 cap(s), Oral, Daily, Prophylaxis Start Date: 02/20/19 Status: Ordered Start: 02-20-2019 take 1 capsule by [facility] once daily potassium chloride 10 mEq Cap-ER 10 mEq = 1 cap(s), Oral, Daily, Prophylaxis Start Date: 02/20/19 Status: Ordered predniSONE 20 mg oral tablet (4 sources) Start: 06-01-2022 take 1 tablet by mouth in the morning, then take 1 tablet by mouth at bedtime predniSONE (DELTASONE) 20 mg tablet Take 1 tablet (20 mg total) by mouth in the morning and 1 tablet (20 mg total) before bedtime. 06/01/2022 Active Rapaflo unknown (1 source) tadalafil 20 mg oral tablet (20 sources) Phosphodiesterase 5 Inhibitor Start: 05-28-2021 tadalafiL (CIALIS) 20 mg tablet Take 1 tablet (20 mg total) by mouth. 11/18/2022 Active Start: 05-28-2021 take 1 tablet by [facility] once daily tadalafil 20 mg Tab 20 mg = 1 tab(s), Oral, Daily, # 30 tab(s), Refills(s) 6, Pharmacy: [facility], 177, cm, 04/30/21 8:39:00 EST, Height/Length Dosing, 117.2, kg, 04/30/21 8:39:00 EST, Weight Dosing Start Date: 05/28/21 Status: Ordered tamsulosin hydrochloride 0.4 mg oral capsule (20 sources) alpha-Adrenergic Preston Start: 07-19-2021 tamsu losin (FLOMAX) 0.4 mg capsule Take 1 capsule (0.4 mg total) by mouth. 07/19/2021 Active Tamsulosin HCl A ctive testosterone cypionate 200 mg/ml injectable solution (20 sources) Androgen Start: 10-09-2023 Depo-Testoster one 200 mg/mL intramuscular solution 400 mg, IntraMuscular, q4wk, # 10 mL, Refills(s) 3, Pharmacy: [facility] [id number], 177, cm, 10/09/23 15:48:00 EDT, Height/Length Dosing, 109.4, kg, 10/09/23 15:48:00 EDT, Weight Dosing Start Date: 10/09/23 Status: Ordered Start: 04-24-2023 Depo-Testoster one 200 mg/mL intramuscular solution 350 mg, IntraMuscular, q4wk, # 10 mL, Refills(s) 5, Pharmacy: [facility], 177, cm, 04/24/23 15:56:00 EST, Height/Length Dosing, 109, kg, 04/24/23 15:56:00 EST, Weight Dosing Start Date: 04/24/23 Status: Ordered Start: 09-05-2022 Depo-Testoster one 200 mg/mL intramuscular solution 400 mg, IntraMuscular, q4wk, # 10 mL, Refills(s) 5, Pharmacy: [facility], 177, cm, 09/05/22 15:39:00 EDT, Height/Length Dosing, 109, kg, 09/05/22 15:39:00 EDT, Weight Dosing Start Date: 09/05/22 Status: Ordered Start: 07-22-2022 inject 350 mg by int ramuscular injection every four months Depo-Testosterone 200 mg/mL intramuscular solution 350 mg, IntraMuscular, q4wk, Dispense 3 month supply, # 10 mL, Refills(s) 2, Pharmacy: [facility], 177, cm, 02/21/22 16:00:00 EST, Height/Length Dosing, 109, kg, 02/21/22 16:00:00 EST, Weight Dosing Start Date: 07/22/22 Status: Ordered Start: 04-25-2022 inject 350 mg by int ramuscular injection every four months Depo-Testosterone 200 mg/mL intramuscular solution 350 mg, IntraMuscular, q4wk, Dispense 3 month supply, # 10 mL, Refills(s) 1, Pharmacy: [facility], 177, cm, 02/21/22 16:00:00 EST, Height/Length Dosing, 109, kg, 02/21/22 16:00:00 EST, Weight Dosing Start Date: 04/25/22 Status: Ordered Start: 11-01-2021 testosterone c ypionate (DEPO-TESTOSTERONE) 200 mg/mL injection Inject 1.8 mL (360 mg total) into the appropriate muscle. 11/01/2021 Active Start: 11-01-2021 inject 350 mg by int ramuscular injection every four months Depo-Testosterone 200 mg/mL intramuscular solution 350 mg, IntraMuscular, q4wk, Dispense 3 month supply, # 10 mL, Refills(s) 1, Pharmacy: [facility], 177, cm, 09/10/21 8:12:00 EDT, Height/Length Dosing, 117.2, kg, 09/10/21 8:12:00 EDT, Weight Dosing Start Date: 11/01/21 Status: Ordered Start: 02-08-2021 inject 450 mg by int ramuscular injection every four months Depo-Testosterone 200 mg/mL intramuscular solution 450 mg, IntraMuscular, q4wk, Dispense 3 month supply, # 10 mL, Refills(s) 3, Pharmacy: [facility], 177, cm, 10/16/20 9:03:00 EDT, [...] Sig (Original) cholecalciferol 0.125 mg oral tablet (4 sources) Vitamin D Start: 11-29-2013 take 1 tablet by mouth once daily Vitamin D3 5000 intl units oral tablet 5,000 International_Uni t = 1 tab(s), Oral, Daily, Refills(s) 0, Prophylaxis Start Date: 11/29/13 Status: Ordered cholecalciferol, vitamin D3, 2,000 units tablet daily. Active Vitamin D3 5000 intl units oral tablet (20 sources) Start: 11-29-2013 take 1 tablet by mouth once daily Vitamin D3 5000 intl units oral tablet 5,000 International_Unit = 1 tab(s), Oral, Daily, Refills(s) 0, Prophylaxis Start Date: 11/29/13 Status: Ordered Problems Active Problems Problem Classification Problem Date Documented Date Episodic/Chronic Anxiety disorders (3 sources) Anxiety state; Translations: [Generalized anxiety disorder] Onset: 09-20-19 18 03-08-2022 Chronic Chronic obstructive pulmonary disease and bronchiectasis (1 source) Bronchitis, not specified as acute or chronic Episodic Disorders of lipid metabolism (20 sources) Hyperlipidemia; Translations: [Hyperlipidemia, unspecified] Onset: 04-04-20 17 01-04-2019 Chronic Esophageal disorders (20 sources) Gastroesophageal reflux disease; Translations: [Gastro-esophageal reflux disease without esophagitis] Onset: 04-04-20 17 02-20-2019 Chronic Essential hypertension (20 sources) Hypertensive disorder; Translations: [Essential (primary) hypertension] Onset: 04-04-20 17 03-06-2015 Chronic Gastrointestinal hemorrhage (1 source) Rectal hemorrhage; Translations: [Rectal Bleeding] Episodic Hyperplasia of prostate (20 sources) Benign prostatic hypertrophy with outflow obstruction; Translations: [Benign prostatic hyperplasia with lower urinary tract symptoms] Onset: 04-04-20 Chronic Other diseases of kidney and ureters (1 source) Urinary tract obstruction; Translations: [Other obstructive and reflux uropathy] Onset: 09-11-19 Episodic Other endocrine disorders (17 sources) Testicular hypofunction; Translations: [Testicular hypofunction] Onset: 09-11-19 Chronic Other endocrine disorders (20 sources) Male hypogonadism; Translations: [Testicular hypofunction] Onset: 03-08-20 22 11-12-2018 Chronic Other endocrine disorders (4 sources) Testicular hypofunction; Translations: [TESTICULAR HYPOFUNCTION] Onset: 08-23-19 Chronic Other gastrointestinal disorders (3 sources) Irritable bowel syndrome with diarrhea; Translations: [Irritable bowel syndrome with diarrhea] Onset: 09-20-19 18 03-08-2022 Chronic Other male genital disorders (4 sources) Male erectile dysfunction, unspecified; Translations: [Erectile dysfunction] Onset: 09-11-19 Chronic Other male genital disorders (20 sources) Impotence of organic origin 11-12-2018 Chronic Other male genital disorders (3 sources) Secondary erectile dysfunction; Translations: [Male erectile dysfunction, unspecified] Onset: 03-08-20 22 03-08-2022 Chronic Other nutritional; endocrine; and metabolic disorders (20 sources) Body mass index 30+ - obesity 03-25-2019 Chronic Other nutritional; endocrine; and metabolic disorders (20 sources) Obesity; Translations: [Obesity, unspecified] Onset: 09-20-19 Resolved : 12-03-19 14 11-12-2018 Chronic Other nutritional; endocrine; and metabolic disorders (20 sources) History of hypercholesterolemia 03-06-2015 Episodic Other upper respiratory infections (3 sources) Chronic sinusitis; Translations: [Chronic sinusitis, unspecified] Onset: 04-04-20 17 03-08-2022 Chronic Spondylosis; intervertebral disc disorders; other back problems (3 sources) Annular tear of lumbar disc; Translations: [Other intervertebral disc degeneration, lumbar region] Onset: 11-19-19 14 03-08-2022 Chronic Unclassified (20 sources) Sebaceous cyst of skin 03-25-2019 Past or Other Problems Problem Classification Problem Date Documented Da te Episodic/Chronic Allergic reactions (6 sources) Eczema; Translations: [Dermatitis, unspecified] Onset: 03-08-2022 03-08-2022 Episodic Deficiency and other anemia (20 sources) Anemia; Translations: [Anemia, unspecified] Onset: 03-13-2023 02-20-2019 Episodic Deficiency and other anemia (3 sources) Iron deficiency anemia; Translations: [Iron deficiency anemia, unspecified] Onset: 10-15-2018 03-08-2022 Episodic Fluid and electrolyte disorders (6 sources) Drug-induced hypokalemia; Translations: [Hypokalemia] Onset: 04-25-2019 03-08-2022 Episodic Genitourinary symptoms and ill-defined conditions (20 sources) Nocturia; Translations: [Nocturia] Onset: 09-10-2021 Episodic Joint disorders and dislocations; trauma-related (20 sources) Tear of medial meniscus of knee; Translations: [Other tear of medial meniscus, current injury, unspecified knee, initial encounter] Onset: 01-23-2023 02-20-2019 Episodic Mood disorders (3 sources) Mood disorders Onset: 03-13-2023 03-13-2023 Other liver diseases (3 sources) Elevated liver enzymes level; Translations: [Abnormal levels of other serum enzymes] Onset: 06-23-2020 03-08-2022 Episodic Other male genital disorders (20 sources) H/O: male genital disorder Resolved: 11-12-2018 11-12-2018 Episodic Other screening for suspected conditions (not mental disorders or infectious disease) (20 sources) Decreased testosterone level ; Translations: [Encounter for screening for malignant neoplasm of prostate] Onset: 04-04-2017 Resolved: 03-06-2015 11-12-2018 Episodic Other skin disorders (3 sources) Folliculitis; Translations: [Follicular disorder, unspecified] Onset: 04-04-2017 03-08-2022 Episodic Other skin disorders (3 sources) Sebaceous cyst of skin; Translations: [Sebaceous cyst] Onset: 03-08-2022 03-08-2022 Episodic Spondylosis; intervertebral disc disorders; other back problems (3 sources) Chronic sacroiliac joint pain; Translations: [Sacrococcygeal disorders, not elsewhere classified] Onset: 11-18-2013 03-08-2022 Episodic Results Test Name Value Interpretation Reference Range Facil ity Ambulatory Visit Summaryon 0 10-09-2023 Ambulatory Visit Summary AGUSTIN CHEW :1960 Visit Date:10/09/2023 Ambulatory Visit Instructions Your Diagnosis Hypogonadism male BPH with urinary obstruction ED (erectile dysfunction) Nocturia Your Care Team Attending Physician - Syed [...] coated tablet) fluticasone nasal (Flonase 0.05 mg/inh [place]) hydrochlorothiazide -lisinopril (hydrochlorothiazid e-lisinopril 12.5 mg-20 mg [...] lacerated tendon left wrist, Urodynamics. Discharge Vitals Temperature (Temporal Artery) 37 ?C Heart Rate (Peripheral) 71 Respiratory Rate 16 Blood Pressure 129/88 Height 177 cm Height 70 in Weight 109.4 kg Weight 240.68 lb BMI 34.92 What to do next Scheduled Follow-Up Appointments Monday 8:00 AM EST With: TAMMY RUDOLPH, Syed Sinclair Where: [facility] Patient Educationon 10-09-19 24 Patient Education Urology Hypogonadism, Male Male [...] Follow these instructions at home: ? Take [id number] and prescription medicines only as told by [...] 12/03/2020 Document (more content not included)... Normal [facility] Provider Letteron 10-09-2023 Provider Letter October 09, [address] [id number] : 1960 To Whom It May Concern, Please excuse above patient from work. Date of Appointment: From: 10/09/2023 To: _ May Return to Work On:10/10/2023 Restrictions: none Comments: Any questions, feel free to contact our office. Sincerely, [facility] [address], [place] [address] Corina Cates [facility] Urology Office/Clinic Noteon 10-09-2023 Urology Office/Clinic Note Chief Complaint hypogonadism, BPH with obstruction HPI Staff 6 month f/u with testosterone level and injection. Dx: hypogonadism male, BPH with urinary obstruction, ED and nocturia Denies any urinary complaints at this time. Testosterone (ref range 264-916): 08/31/2102/07/2208/22/22 (T inj increased to 350mg after reviewing this lab) 04/03/2309/25/23 Testosterone IM from 400mg q4wk to 350mg q4wk at last OV Finasteride 5 mg qd, Flomax 0.4 mg qd and Tadalafil 20mg prn History of Present Illness Tests reviewed: reviewed UA, T level I have reviewed the previous health record [...] See HPI. Physical Exam Vitals & Measurements T: 37 ?C(Temporal Artery) HR: 71(Peripheral) RR: 16 BP: 129/88 HT: 70 in HT: 177 cm WT: 109.4 kg WT: 240.68 lb BMI: 34.92 General Appearance: alert, no distress, well nourished, well developed male. Assessment/Plan 1. Hypogonadism male (E29.1: Testicular hypofunction) Testosterone (ref range 264-916): 08/31/2102/07/2208/22/22 (T inj increased to 350mg after reviewing this lab) 04/03/2309/25/23 CBC: 02/23/22 - RBC 4.34 L. HGB 9.5 L. HCT 30.5. 04/03/23 - RBC 4.89. HGB 15.3. HCT 45.1. Receiving Testosterone IM 350 mg q4wks per at home. Discussed labs. Most recent T level is low. Denies getting this drawn on the wrong day, order was written out for the day he needed to get level drawn. Recommended pt to increase dosage of T inj back to 400mg q4wks. Pt received testosterone IM 400mg IO today. -Increase dosage of Testosterone IM from 350mg q4w to 400mg q4w -T level in 6 mos 2. BPH with urinary obstruction (N40.1: Benign prostatic hyperplasia with lower urinary tract symptoms) PSA: 04/22/20 - <0.05 02/04/22 - <0.13 04/03/23 - 0.16 Taking Finasteride 5 mg qd and Flomax 0.4 mg qd. Denies any bothersome urinary habits at this time. UA today negative for blood and infection. -Cont Finasteride and Tamsulosin -PSA in 6 mos 3. ED (erectile dysfunction) (N52.9: Male erectile dysfunction, unspecified) Taking Tadalafil 20mg prn. 4. Nocturia (R35.1: Nocturia) Failed Myrbetriq due to no sx improvement. Wears a CPAP machine. Still getting up a night to void but less often. Follow-up With When Contact Information TAMMY RUDOLPH, Syed Sinclair, URL [facility] [address], [place] [address]- [phone] Additional Instructions: 6 mos w/ T level and PSA Patient Education Hypogonadism, Male I, Radha Hess, personally scribed for Dr. Wells on 10/09/2023 16:34:12. . Documentation recorded by the scribeRadha, accurately reflects the services(s) I performed and decisions made by me. Authenticated by Dr. Wells on 10/09/2023 16:38:11. Problem List/Past Medical History Ongoing BMI 37.0-37.9, [...] 200 mg/mL intramuscular solution, 350 mg, IntraMuscular, q4wk Depo-Testosterone 200 mg/mL intramuscular solution, 400 mg= 2 mL, IntraMuscular, Once dicyclomine 20 mg Tab, 20 mg= 1 tab(s), Oral, BID ferrous sulfate 325 mg oral enteric coated tablet, 325 mg= 1 tab(s), Oral, BID Fiber Tabs, 1 tbs, Oral, BID finasteride 5 mg Tab, 5 mg= 1 tab(s), Oral, Daily, 3 refills Fish Oil, 1000 mg, Oral, Daily Flonase 0.05 mg/inh [place], 2 spray(s), Nasal, Daily hydrochlorothiazide -lisinopril 12.5 mg-20 mg Tab, 1 tab(s), Oral, Daily Metoprolol succinate 25 mg ER Tablet, 25 mg, Oral, Daily naproxen 500 mg Tab, 500 mg= 1 tab(s), Oral, Daily Nexium, 40 mg, Oral, Daily potassium chloride 10 mEq Cap (more content not included)... [facility] Comment on above: Result Comment: Elec tronically Signed By: Syed WELLS MD\.br\Date and Time Signed: 10/09/23 16:38 EDT\.br\Electronically Co-Signed By: Radha [email or web address]\Date and Time Co-Signed: 10/09/23 16:34 EDT [facility] 2023 Lab Reports [id number] [id number] Normal [facility] Ambulatory Visit Summaryon 0 07-17-2023 Ambulatory Visit Summary AGUSTIN CHEW :1960 Visit Date:07/17/2023 Ambulatory Visit Instructions Your [...] mg Tab) fluticasone nasal (Flonase 0.05 mg/inh [place]) hydrochlorothiazide -lisinopril (hydrochlorothiazid e-lisinopril 12.5 mg-20 mg [...] PM EDT With: Where: [facility] [facility] Invalid Interpretation Code [address] [place] [address] [place] [address]- \.br\ Monday 3:00 PM EDT \.br\ With: Syed WELLS MD\.br\ Where: [facility] Provider Letteron 07-17-2023 Provider Letter July 17, 2023 [address]W [address] [place] [phone] : 1960 To Whom It May Concern, Please excuse above patient from work for medical appointments. Date: From: 07/18/2023 To: 07/17/2024 Restrictions: None Comments: Patient will need to be excused to get monthly injections and lab work 07/18/2023 through 07/17/2024 Sincerely, Syed Wells M.D, F.A.C.S Faxed to Reymundo Avelaralex at [phone] [facility] Provider Letter July 17, 2023 AGUSTIN CHEW [address] [place] [phone] : 1960 To Whom It May Concern, Please excuse above patient from work. Date of appointment: From: 07/17/2023 To: _ May Return to Work On:07/18/2023 Restrictions: none Comments: Any Questions, feel free to call our office. Sincerely, [facility] [address] [facility], [place] [address] [facility] Ambulatory Visit Summaryon 0 06-20-2023 Ambulatory Visit Summary AGUSTIN CHEW :1960 Visit Date:06/20/2023 Ambulatory Visit Instructions Your [...] mg Tab) fluticasone nasal (Flonase 0.05 mg/inh [place]) hydrochlorothiazide -lisinopril (hydrochlorothiazid e-lisinopril 12.5 mg-20 mg [...] PM EDT With: Where: [facility] Normal [address] [place] [address]- \.br\ Medications\.br\ What How Much When Instructions\.br\ [...] Unchanged fluticasone nasal (Flonase 0.05 mg/ inh [place]) 2 Sprays Nasal Inhalation Every day\.br\ Unchanged [...] for choosing us for your care.\.br\ \.br\ [facility] Provider Letteron 06-20-2023 Provider Letter June 20, 2023 AGUSTIN HECTOR [address] [place] [phone] : 1960 To Whom It May Concern, Please excuse above patient from work. Date of appointment: From: _ To: _ May Return to Work On: 06/21/23 Restrictions: none Comments: Any questions, please call our office Sincerely, [facility] [address], [place] [address] [facility] Ambulatory Visit Summaryon 0 05-22-2023 Ambulatory Visit Summary AGUSTIN CHEW :1960 Visit Date:05/22/2023 Ambulatory Visit Instructions Your Care Team Attending Physician - TAMMY [...] mg Tab) fluticasone nasal (Flonase 0.05 mg/inh [place]) hydrochlorothiazide -lisinopril (hydrochlorothiazid e-lisinopril 12.5 mg-20 mg [...] PM EST With: Where: [facility] [address] [place] [address]- \.br\ Medications\.br\ What How Much When Instructions\.br\ [...] Unchanged fluticasone nasal (Flonase 0.05 mg/ inh [place]) 2 Sprays Nasal Inhalation Every day\.br\ Unchanged [...] for choosing us for your care.\.br\ \.br\ [facility] Medication Consenton 024 Medication Consent [id number] [email or web address]#[email or web address] Normal [facility] Ambulatory Visit Summaryon 0 04-24-2023 Ambulatory Visit Summary AGUSTIN CHEW :1960 Visit Date:04/24/2023 Ambulatory Visit Instructions Your Diagnosis Hypogonadism male BPH with urinary obstruction ED (erectile dysfunction) Nocturia Tests Performed Urnls Dip Stick Auto w/o Microscopy POC 60198 Your Care Team Attending Physician - Syed [...] coated tablet) fluticasone nasal (Flonase 0.05 mg/inh [place]) hydrochlorothiazide -lisinopril (hydrochlorothiazid e-lisinopril 12.5 mg-20 mg [...] PM EST With: Where: [facility] Normal [address] [place] [address] [place] [address]- \.br\ You Need to Schedule the Following Appointments\.br\ Follow Up with TAMMY RUDOLPH, Syed Sinclair, URL When: \.br\ Comments:\.br\ 6 mos w/ T level\.br\ Where:\.br\ [facility] [address]\.br\ [place] [address]-\.br\ [phone]\.br\ Medications\.br\ What How Much When Instructions\.br\ Changed tadalafil (tadalafil 20 mg Tab) 1 Tablets By Mouth As Directed as needed for sexual activity Take one tab prior to sexual activity. Do not exceed 20mg in 24hrs. Pickup at [facility]\.br\ Changed testosterone (Depo-Testosterone 200 mg/ mL intramuscular solution) 350 Milligram Intramuscular Every 4 weeks Pickup at [facility]\.br\ Unchanged finasteride (finasteride 5 mg [...] Unchanged fluticasone nasal (Flonase 0.05 mg/ inh [place]) 2 Sprays Nasal Inhalation Every day Contact [...] if questions or concerns \.br\ Pharmacy Information\.br\ [facility]: [address] [place] [id number] [phone]\.br\ [facility]: [address] [place], [place] [id number] [phone]\.br\ Test Results\.br\ Urnls Dip Stick Auto w/o Microscopy POC 58214 (04/24/2023)\.br\ Bilirubin Urine Dipstick - Negative\.br\ Blood Urine Dipstick - Negative\.br\ Glucose Urine Dipstick - Negative\.br\ Ketones Urine Dipstick - Negative\.br\ Leukocytes Urine Dipstick - Negative\.br\ Nitrite Urine Dipstick - Negative\.br\ Protein Urine Dipstick - Negative\.br\ Specific [place] Urine Dipstick - 1.015\.br\ Urine Appearance Urine [...] diagnosed?\.br\ Your health care provider shane hawley [facility] Patient Educationon 04-24-19 Patient Education Urology Hypogonadism, Male Male hypogonadism [...] Follow these instructions at home: ? Take ouet-jza-ybxijew and prescription medicines only as told by [...] Revised: 12/03/2020 Document (more content not included)... [facility] Provider Letteron 04-24-2023 Provider Letter April 24, 2023 [address] CHEW [address] [place] [phone] : 1960 To Whom It May Concern, Please excuse above patient from work. Date of Appointment: From: 04/24/2023 To: _ May Return to Work On: 04/25/2023 Restrictions: none Comments: Any questions, please call our office Sincerely, [facility] [address], [place] [address] [facility] Urology Office/Clinic Noteon 04-24-2023 Urology Office/Clinic Note [...] [facility] [address], [place] [phone] Additional Instructions: 6 mos w/ T level Patient Education Hypogonadism, Male I, Radha Hess, personally scribed for Dr. Wells on 04/24/2023 16:50:19. . Documentation recorded by the scribeRadha, accurately reflects the services(s) I performed and [...] 1000 mg, Oral, (more content not included)... [facility] Comment on above: Result Comment: Elec tronically Signed By: Syed WELLS MD\.br\Date and Time Signed: 04/24/23 16:53 EST\.br\Electronically Co-Signed By: Radha Hess\.br\Date and Time Co-Signed: 04/24/23 16:50 EST Lab Reportson 04-11-2023 Lab Reports [id number] 73#1.00TIFF [facility] Lab Reports [id number]#[email or web address] [facility] Provider Letteron 03-20-2023 Provider Letter March 20, 2023 [address] CHEW [address] [place] [phone] : 1960 To Whom It May Concern, Please excuse above patient from work. Date of Appointment: From: 03/20/2023 To: _ May Return to Work On:03/21/2023 Restrictions: none Comments: _ Sincerely, [facility] [address], [place] [address] [facility] Ambulatory Visit Summaryon 1 04-22-2022 Ambulatory Visit Summary AGUSTIN CHEW :1960 Visit Date:10/17/2018 Ambulatory Visit Instructions Your [...] mg Tab) fluticasone nasal (Flonase 0.05 mg/inh [place]) hydrochlorothiazide -lisinopril (hydrochlorothiazid e-lisinopril 12.5 mg-20 mg [...] PM EST With: Where: [facility] Normal [address] [place] [address]- \.br\ Medications\.br\ What How Much When Instructions\.br\ New tadalafil (tadalafil 20 mg Tab) 1 Tablets By Mouth As Directed take 1 tab prior to intercourse, do not exceed more than 1 tab in 24 hrs Pickup at [facility] [id number]\.br\ Changed amlodipine (amLODIPine 10 mg Tab) 1 Tablets By Mouth Every day\.br\ Changed cholecalciferol (Vitamin D3 5000 intl units oral tablet) 1 Tablets By Mouth Every day\.br\ Changed finasteride (finasteride 5 mg Tab) 1 Tablets By Mouth Every day Pickup at [facility]\.br\ Changed hydrochlorothiazid e-lisinopril (hydrochlorothiazi de-lisinopril 12.5 mg-20 mg Tab) 1 Tablets By Mouth Every day\.br\ Changed omega-3 polyunsaturated fatty acids (Fish Oil) 1,000 Milligram By Mouth Every day\.br\ Changed polycarbophil (Fiber Tabs) 1 tbs By Mouth 2 times a day metamucil \.br\ Changed tamsulosin (tamsulosin 0.4 mg Cap) 1 Capsules By Mouth Every day Pickup at [facility]\.br\ Changed testosterone (Depo-Testosterone 200 mg/ [...] Unchanged fluticasone nasal (Flonase 0.05 mg/ inh [place]) 2 Sprays Nasal Inhalation Every day\.br\ Unchanged [...] [facility]: [address] [place], [place] [id number] [phone]\.br\ [facility] [id number]: [address], [place] [id number] [phone]\.br\ \.br\ What How Much When Comments\.br\ Stop [...] for choosing us for your care.\.br\ \.br\ [facility] Provider Letteron 02-20-2023 Provider Letter February 20, 2023 [address] CHEW [address] [place] [phone] : 1960 To Whom It May Concern, Please excuse above patient from work. Date of appointment: From: 02/20/2023 To: _ May Return to Work On: Restrictions: none Comments: Any questions, please call our office Sincerely, [facility] [address], [place] [address] [facility] Ambulatory Visit Summaryon 1 Ambulatory Visit Summary AGUSTIN CHEW :1960 Visit Date:01/23/2023 Ambulatory Visit Instructions Your Care Team Attending Physician - TAMMY [...] mg Tab) fluticasone nasal (Flonase 0.05 mg/inh [place]) hydrochlorothiazide -lisinopril (hydrochlorothiazid e-lisinopril 12.5 mg-20 mg [...] 2:45 PM EST Where: [facility] Ambulatory Visit Summaryon 0 12-26-2022 Ambulatory Visit Summary AGUSTIN CHEW :1960 Visit Date:12/26/2022 Ambulatory Visit Instructions Your Care Team Attending Physician - TAMMY [...] mg Tab) fluticasone nasal (Flonase 0.05 mg/inh [place]) hydrochlorothiazide -lisinopril (hydrochlorothiazid e-lisinopril 12.5 mg-20 mg [...] Monday 2:30 PM EDT Where: [facility] Provider Letteron 12-26-2022 Provider Letter December 26, 2022 AGUSTIN CHEW [address] [place] [phone] : 1960 To Whom It May Concern, Please excuse above patient from work. Date of Appointment: From: 12/26/2022 To: _ May Return to Work On:12/27/2022 Restrictions: none Comments: Any questions, feel free to call our office. Sincerely, [facility] [address], [place] [address] [facility] Ambulatory Visit Summaryon 0 11-28-2022 Ambulatory Visit Summary AGUSTIN CHEW :1960 Visit Date:11/28/2022 Ambulatory Visit Instructions Your [...] mg Tab) fluticasone nasal (Flonase 0.05 mg/inh [place]) hydrochlorothiazide -lisinopril (hydrochlorothiazid e-lisinopril 12.5 mg-20 mg [...] 2:45 PM EDT Where: [facility] Provider Letteron 11-28-2022 Provider Letter November 28, 2022 AGUSTIN SANTIAGOBIN [address] [place] [phone] : 1960 To Whom It May Concern, Please excuse above patient from work. Date of Appointment: From: 11/28/2022 To: May Return to Work On: 11/29/2022 Restrictions: None Comments: Any Questions, please call our office. Sincerely, [facility] [address], [place] [address] [facility] Ambulatory Visit Summaryon 0 10-31-2022 Ambulatory Visit Summary AGUSTIN CHEW :1960 Visit Date:10/31/2022 Ambulatory Visit Instructions Your [...] mg Tab) fluticasone nasal (Flonase 0.05 mg/inh [place]) hydrochlorothiazide -lisinopril (hydrochlorothiazid e-lisinopril 12.5 mg-20 mg [...] 2:45 PM EDT Where: [facility] [place] Normal [facility] Nurse Consultation Noteon Nurse Consultation Note Reason [...] 1000 mg, Oral, Daily Flonase 0.05 mg/inh [place], 2 spray(s), Nasal, Daily hydrochlorothiazide -lisinopril 12.5 [...] influenza virus vaccine, inactivated 01/13/2016 Recorded Normal [facility] TESTOSTERONE, TOTALon 2022 Testosterone [Mass/Vol] 287 ng/dL Normal 264-916 [facility] Comment on above: Result Comment: Adul t male reference interval is based on a population of healthy nonobese males (BMI <30) between 19 and 39 years old. Alice et.al. JCEM 2017,102;5951-9445. PMID: 94318251. Performed By: #### T ESTTOT #### [facility] [address] [place] [address] Dr. Ying Spencer CBC AUTO DIFFon 02-23-2022 BASO # 0.1 103/ul Normal 0.0-0.1 [facility] Comment on above: Performed By: #### C BC #### [facility] [address] [place] [address] Dr. Ying Spencer Basophils/100 WBC (Bld) 0.9 % Normal 0.2-2.0 [facility] Comment on above: Performed By: #### C BC #### [facility] [address] [place] [address] Dr. Ying Spencer EO # 0.3 103/ul Normal 0.0-0.7 [facility] Comment on above: Performed By: #### C BC #### [facility] [address] [place] [address] Dr. Ying Spencer Eosinophils/100 WBC (Bld) 2.7 % Normal 0.9-7.0 [facility] Comment on above: Performed By: #### C BC #### [facility] [address] [place] [address] Dr. Ying Spencer Erythrocyte distribution width (RBC) [Ratio] 17.1 % Critically high 11.0-15.0 [facility] Comment on above: Performed By: #### C BC #### [facility] [address] [place] [address] Dr. Ying Spencer Hematocrit (Bld) [Volume fraction] 30.5 % Critically low 42.0-54.0 [facility] Comment on above: Performed By: #### C BC #### [facility] [address] [place] [address] Dr. Ying Spencer Hemoglobin (Bld) [Mass/Vol] 9.5 g/dL Critically low 14.0-18.0 [facility] Comment on above: Performed By: #### C BC #### [facility] [address] [place] [address] Dr. Ying Spencer IG # 0.04 10e3/ul Critically high 0.00-0.03 [facility] Comment on above: Performed By: #### C BC #### [facility] [address] [place] [address] Dr. Ying Spencer IG % 0.4 % Normal 0.0-0.5 [facility] Comment on above: Performed By: #### C BC #### [facility] [address] [place] [address] Dr. Ying Spencer LYMPH # 1.7 103/ul Normal 1.2-3.8 [facility] Comment on above: Performed By: #### C BC #### [facility] [address] [place] [address] Dr. Ying Spencer Lymphocytes/100 WBC (Bld) 17.3 % Critically low 20.5-60.0 [facility] Comment on above: Performed By: #### C BC #### [facility] [address] [place] [address] Dr. Ying Spencer MANUAL DIFF REQ NO Normal [facility] Comment on above: Performed By: #### C BC #### [facility] [address] [place] [address] Dr. Ying Spencer MCH (RBC) [Entitic mass] 21.9 pg Critically low 25.9-34.0 [facility] Comment on above: Performed By: #### C BC #### [facility] [address] [place] [address] Dr. Ying Spencer MCHC (RBC) [Mass/Vol] 31.1 g/dL Normal 29.9-35.2 [facility] Comment on above: Performed By: #### C BC #### [facility] [address] [place] [address] Dr. Ying Spencer MCV (RBC) [Entitic vol] 70.3 fL Critically low 80.0-94.0 [facility] Comment on above: Performed By: #### C BC #### [facility] [address] [place] [address] Dr. Ying Spencer MONO # 1.0 103/ul Critically high 0.3-0.8 [facility] Comment on above: Performed By: #### C BC #### [facility] [address] [place] [address] Dr. Ying Spencer Monocytes/100 WBC (Bld) 10.8 % Normal 1.7-12.0 [facility] Comment on above: Performed By: #### C BC #### [facility] [address] [place] [address] Dr. Ying Spencer NEUT # 6.5 103/ul Normal 1.4-6.5 [facility] Comment on above: Performed By: #### C BC #### [facility] [address] [address] [address] Ying Spencer Neutrophils/100 WBC (Bld) 67.9 % Normal 43.0-75.0 [facility] Comment on above: Performed By: #### C BC #### [facility] [address] [address] [address] Ying Spencer Platelet mean volume (Bld) [Entitic vol] 9.2 fL Critically low 9.5-13.5 [facility] Comment on above: Performed By: #### C BC #### [facility] [address] [address] [address] Ying Spencer PLT 399 103/ul Normal 150-450 [facility] Comment on above: Performed By: #### C BC #### [facility] [address] [address] [address] Ying Spencer RBC 4.34 106/ul Critically low 4.70-6.10 [facility] Comment on above: Performed By: #### C BC #### [facility] [address] [id number] Ying Spencer WBC 9.6 103/ul Normal 4.0-11.0 [facility] Comment on above: Performed By: #### C BC #### [facility] [address] [address] [address] Ying Spencer TESTOSTERONE, TOTALon 2021 Testosterone [Mass/Vol] 715 ng/dL Normal 264-916 [facility] Comment on above: Result Comment: Adul t male reference interval is based on a population of healthy nonobese males (BMI <30) between 19 and 39 years old. isaac Jenkins.al. JCEM 2017,102;9684-4861. PMID: [id number]. Performed By: #### T ESTTOT #### [facility] [address] [address] [address] Ying Spencer LIPID PROFILEon 10-21-2022 CHOL-HDL RATIO NORM SEE BELOW Normal [facility] Comment on above: Result Comment: 3.3 - 4.4 LOW RISK 4.4 - 7.1 AVERAGE RISK 7.1 - 11.0 MODERATE RISK >11.0 HIGH RISK Performed By: #### C MP, LIPID #### [facility] [address] [address] [address] Ying Spencer Cholesterol [Mass/Vol] 141 mg/dL Normal <=200 [facility] Comment on above: Performed By: #### C MP, LIPID #### [facility] [address] [address] [address] Ying Spencer Cholesterol in HDL [Mass/Vol] 50 mg/dL Normal 40-60 [facility] Comment on above: Performed By: #### C MP, LIPID #### [facility] [address] [address] [address] Ying Spencer Cholesterol in LDL [Mass/Vol] 77.2 mg/dL Normal [facility] Comment on above: Performed By: #### C MP, LIPID #### [facility] [address] [address] [address] Ying Spencer Cholesterol.total /Cholesterol in HDL [Mass ratio] 2.8 {ratio} Normal [facility] Comment on above: Performed By: #### C MP, LIPID #### [facility] [address] [address] [address] Ying Spencer HDL NORMAL > or = 60 mg/dl - LOW CARDIOVASCULAR RISK <40 mg/dl - HIGH CARDIOVASCULAR RISK Normal [facility] Comment on above: Performed By: #### C MP, LIPID #### [facility] [address] [address] [address] Ying Spencer LDL CALC NORMAL SEE BELOW Normal [facility] Comment on above: Result Comment: <100 mg/dl OPTIMAL 100 - 129 mg/dl NEAR OR ABOVE OPTIMAL 130 - 159 mg/dl BORDERLINE HIGH 160 - 189 mg/dl HIGH >190 mg/dl VERY HIGH Performed By: #### C MP, LIPID #### [facility] [address] [address] [address] Ying Spencer Triglyceride [Mass/Vol] 69 mg/dL Normal <=150 [facility] Comment on above: Performed By: #### C MP, LIPID #### [facility] [address] [address] [address] Ying Spencer VLDL CALC 13.8 mg/dL Normal [facility] Comment on above: Performed By: #### C MP, LIPID #### [facility] [address] [place] [address] Dr. Ying Spencer PROF 14(COMP METB)on 022 Albumin [Mass/Vol] 4.0 g/dL Normal 3.4-5.0 [facility] Comment on above: Performed By: #### C MP, LIPID #### [facility] [address] [place] [address] Dr. Ying Spencer Albumin/Globulin [Mass ratio] 1.2 {ratio} Normal [facility] Comment on above: Performed By: #### C MP, LIPID #### [facility] [address] [place] [address] Dr. Ying Spencer ALP [Catalytic activity/Vol] 84 U/L Normal 46-116 [facility] Comment on above: Performed By: #### C MP, LIPID #### [facility] [address] [place] [address] Dr. Ying Spencer ALT [Catalytic activity/Vol] 30 U/L Normal 16-63 [facility] Comment on above: Performed By: #### C MP, LIPID #### [facility] [address] [place] [address] Dr. Ying Spencer Anion gap [Moles/Vol] 8.3 mmol/L Normal [facility] Comment on above: Performed By: #### C MP, LIPID #### [facility] [address] [place] [address] Dr. Ying Spencer AST [Catalytic activity/Vol] 23 U/L Normal 15-37 [facility] Comment on above: Performed By: #### C MP, LIPID #### [facility] [address] [place] [address] Dr. Ying Spencer Bilirubin [Mass/Vol] 0.2 mg/dL Normal 0.2-1.0 [facility] Comment on above: Performed By: #### C MP, LIPID #### [facility] [address] [address] [address] Ying Spencer Calcium [Mass/Vol] 9.0 mg/dL Normal 8.5-10.1 [facility] Comment on above: Performed By: #### C MP, LIPID #### [facility] [address] [address] [address] Ying Spencer Chloride [Moles/Vol] 98 mmol/L Normal 98-107 [facility] Comment on above: Performed By: #### C MP, LIPID #### [facility] [address] [place] [address] Dr. Ying Spencer CO2 [Moles/Vol] 27.7 mmol/L Normal 21.0-32.0 [facility] Comment on above: Performed By: #### C MP, LIPID #### [facility] [address] [place] [address] Dr. Ying Spencer Creatinine [Mass/Vol] 1.13 mg/dL Normal 0.70-1.30 [facility] Comment on above: Performed By: #### C MP, LIPID #### [facility] [address] [place] [address] Dr. Ying Spencer EGFR-AF JORDANIAN >60 Normal >=60 [facility] Comment on above: Performed By: #### C MP, LIPID #### [facility] [address] [place] [address] Dr. Ying Spencer EGFR-NON AF JORDANIAN >60 Normal >=60 [facility] Comment on above: Performed By: #### C MP, LIPID #### [facility] [address] [place] [address] Dr. Ying Spencer Globulin (S) [Mass/Vol] 3.3 g/dL Normal [facility] Comment on above: Performed By: #### C MP, LIPID #### [facility] [address] [place] [address] Dr. Ying Spencer Glucose [Mass/Vol] 93 mg/dL Normal 74-106 [facility] Comment on above: Performed By: #### C MP, LIPID #### [facility] [address] [address] [address] Ying Spencer Potassium [Moles/Vol] 4.0 mmol/L Normal 3.5-5.1 [facility] Comment on above: Performed By: #### C MP, LIPID #### [facility] [address] [address] [address] Ying Spencer Protein [Mass/Vol] 7.3 g/dL Normal 6.4-8.2 [facility] Comment on above: Performed By: #### C MP, LIPID #### [facility] [address] [address] [address] Ying Spencer Sodium [Moles/Vol] 130 mmol/L Critically low 136-145 [facility] Comment on above: Performed By: #### C MP, LIPID #### [facility] [address] [address] [address] Ying Spencer Urea nitrogen [Mass/Vol] 17.0 mg/dL Normal 7.0-18.0 [facility] Comment on above: Performed By: #### C MP, LIPID #### [facility] [address] [address] [address] Ying Spencer Urea nitrogen/Creatini ne [Mass ratio] 15.0 mg/mg Normal [facility] Comment on above: Performed By: #### C MP, LIPID #### [facility] [address] [address] [address] Ying Spencer TESTOSTERONE, TOTALon 2021 Testosterone [Mass/Vol] 615 ng/dL Normal 264-916 [facility] Comment on above: Result Comment: Adul t male reference interval is based on a population of healthy nonobese males (BMI <30) between 19 and 39 years old. Alice et.al. JCEM 2017,102;[id number]. PMID: [id number]. Performed By: #### T ESTTOT #### [facility] [address] [address] [address] Ying Spencer BASIC METABOLIC PANELon BUN/CREATININE RATIO NOT APPLICABLE Normal 6-22 [facility] Comment on above: Order Comment: FASTI NG: UNKNOWN Performed By: #### 1 0165 #### [facility] [address], [address] [place] [address] [employer]: Saurabh Noriega MD Calcium [Mass/Vol] 9.3 mg/dL Normal 8.6-10.3 [facility] Comment on above: Order Comment: FASTI NG: UNKNOWN Performed By: #### 1 0165 #### [facility] [address], [address] [place] [address] [employer]: Saurabh Noriega MD Chloride [Moles/Vol] 97 mmol/L Low 98-110 [facility] Comment on above: Order Comment: FASTI NG: UNKNOWN Performed By: #### 1 0165 #### [facility] [address], [address] [place] [address] [employer]: Saurabh Noriega MD CO2 [Moles/Vol] 25 mmol/L Normal 20-32 [facility] Comment on above: Order Comment: FASTI NG: UNKNOWN Performed By: #### 1 0165 #### [facility] [address] [address] [employer]: Saurabh Noriega MD Creatinine [Mass/Vol] 1.07 mg/dL Normal 0.70-1.33 [facility] Comment on above: Order Comment: FASTI NG: UNKNOWN Result Comment: For patients >49 years of age, the reference limit for Creatinine is approximately 13% higher for people identified as -Martiniquais. Performed By: #### 1 0165 #### [facility] [address], [address] [place] [address] [employer]: Saurabh Noriega MD eGFR NON-AFR. JORDANIAN 76 mL/min/1.73m2 Normal > OR = 60 [facility] Comment on above: Order Comment: FASTI NG: UNKNOWN Performed By: #### 1 0165 #### [facility] [address], [address] [place] [address] [employer]: Saurabh Noriega MD GFR/1.73 sq M.predicted among blacks MDRD (S/P/Bld) [Vol rate/Area] 88 mL/min/{1.73_m2} Normal > OR = 60 [facility] Comment on above: Order Comment: FASTI NG: UNKNOWN Performed By: #### 1 0165 #### [facility] [address], [address] [place] [address] [employer]: Saurabh oNriega MD Glucose [Mass/Vol] 89 mg/dL Normal 65-99 [facility] Comment on above: Order Comment: FASTI NG: UNKNOWN Result Comment: Fasting reference interval Performed By: #### 1 0165 #### [facility] [address] [address] [employer]: Sauarbh Noriega MD Potassium [Moles/Vol] 4.3 mmol/L Normal 3.5-5.3 [facility] Comment on above: Order Comment: FASTI NG: UNKNOWN Performed By: #### 1 0165 #### [facility] [address] [place] [address] [employer]: Saurabh Noriega MD Sodium [Moles/Vol] 131 mmol/L Low 135-146 [facility] Comment on above: Order Comment: FASTI NG: UNKNOWN Performed By: #### 1 0165 #### [facility] [address] [address] [employer]: Saurabh Noriega MD Urea nitrogen [Mass/Vol] 17 mg/dL Normal 7-25 [facility] Comment on above: Order Comment: FASTI NG: UNKNOWN Performed By: #### 1 0165 #### [facility] [address] [address] [employer]: Saurabh Noriega MD [facility] METABOLIC [facility] 01-01-2021 Albumin [Mass/Vol] 4.5 g/dL Normal 3.6-5.1 [facility] Comment on above: Performed By: #### 1 0231, 5337, 1570 #### [facility] [address] [address] [employer]: Saurabh Noriega MD Albumin/Globulin [Mass ratio] 1.9 {ratio} Normal 1.0-2.5 [facility] Comment on above: Performed By: #### 1 0231, 5363, 7600 #### [facility] [address] [address] [employer]: Saurabh Noriega MD ALP [Catalytic activity/Vol] 73 U/L Normal 35-144 [facility] Comment on above: Performed By: #### 1 0231, 5363, 7600 #### [facility] [address] [address] [employer]: Saurabh Noriega MD ALT [Catalytic activity/Vol] 20 U/L Normal 9-46 [facility] Comment on above: Performed By: #### 1 0231, 5363, 7600 #### [facility] [address] [address] [employer]: Saurabh Noriega MD AST [Catalytic activity/Vol] 26 U/L Normal 10-35 [facility] Comment on above: Performed By: #### 1 0231, 5363, 7600 #### [facility] [address] [address] [employer]: Saurabh Noriega MD Bilirubin [Mass/Vol] 0.3 mg/dL Normal 0.2-1.2 [facility] Comment on above: Performed By: #### 1 0231, 5363, 7600 #### [facility] [address] [address] [employer]: Saurabh Noriega MD BUN/CREATININE RATIO NOT APPLICABLE Normal 6-22 [facility] Comment on above: Performed By: #### 1 0231, 5363, 7600 #### [facility] [address] [address] [employer]: Saurabh Noriega MD Calcium [Mass/Vol] 9.6 mg/dL Normal 8.6-10.3 [facility] Comment on above: Performed By: #### 1 0231, 5363, 7600 #### [facility] [address], [address] [place] [address] [employer]: Saurabh Noriega MD Chloride [Moles/Vol] 98 mmol/L Normal 98-110 [facility] Comment on above: Performed By: #### 1 0231, 5363, 7600 #### [facility] [address], [address] [place] [address] [employer]: Saurabh Noriega MD CO2 [Moles/Vol] 25 mmol/L Normal 20-32 [facility] Comment on above: Performed By: #### 1 0231, 5363, 7600 #### [facility] [address] [address] [employer]: Saurabh Noriega MD Creatinine [Mass/Vol] 1.14 mg/dL Normal 0.70-1.33 [facility] Comment on above: Result Comment: For patients >49 years of age, the reference limit for Creatinine is approximately 13% higher for people identified as -Martiniquais. Performed By: #### 1 0231, 5363, 7600 #### [facility] [address] [place] [address] [employer]: Saurabh Noriega MD eGFR NON-AFR. JORDANIAN 70 mL/min/1.73m2 Normal > OR = 60 [facility] Comment on above: Performed By: #### 1 0231, 5363, 7600 #### [facility] [address] [place] [address] [employer]: Saurabh Noriega MD GFR/1.73 sq M.predicted among blacks MDRD (S/P/Bld) [Vol rate/Area] 81 mL/min/{1.73_m2} Normal > OR = 60 [facility] Comment on above: Performed By: #### 1 0231, 5363, 7600 #### [facility] [address] [address] [employer]: Saurabh Noriega MD Globulin (S) [Mass/Vol] 2.4 g/dL Normal 1.9-3.7 [facility] Comment on above: Performed By: #### 1 0231, 5363, 7600 #### [facility] [address] [place] [address] [employer]: Saurabh Noriega MD Glucose [Mass/Vol] 82 mg/dL Normal 65-99 [facility] Comment on above: Result Comment: Fasting reference interval Performed By: #### 1 0231, 5363, 7600 #### [facility] [address] [place] [address] [employer]: Saurabh Noriega MD Potassium [Moles/Vol] 4.6 mmol/L Normal 3.5-5.3 [facility] Comment on above: Performed By: #### 1 0231, 5363, 7600 #### [facility] [address] [place] [address] [employer]: Saurabh Noriega MD Protein [Mass/Vol] 6.9 g/dL Normal 6.1-8.1 [facility] Comment on above: Performed By: #### 1 023, 5363, 7600 #### [facility] [address] [place] [address] [employer]: Saurabh Noriega MD Sodium [Moles/Vol] 132 mmol/L Low 135-146 [facility] Comment on above: Performed By: #### 1 0231, 5363, 7600 #### [facility] [address] [place] [address] [employer]: Saurabh Noriega MD Urea nitrogen [Mass/Vol] 20 mg/dL Normal 7-25 [facility] Comment on above: Performed By: #### 1 0231, 5363, 7600 #### [facility] [address] [place] [address] [employer]: Saurabh Noriega MD LIPID PANEL, [facility] 12-16 Cholesterol [Mass/Vol] 156 mg/dL Normal <200 [facility] Comment on above: Order Comment: FASTI NG:YES FASTING: YES Performed By: #### 1 0231, 5363, 7600 #### [facility] [address], [address] [place] [address] [employer]: Saurabh Noriega MD Cholesterol in HDL [Mass/Vol] 58 mg/dL Normal > OR = 40 [facility] Comment on above: Order Comment: FASTI NG:YES FASTING: YES Performed By: #### 1 0231, 5363, 7600 #### [facility] [address], [address] [place] [address] [employer]: Saurabh Noriega MD Cholesterol in LDL [Mass/Vol] [...] LDL-C. Irineo PADILLA et al. JAIME. 2013;310(19): 8701-6658 (http://[email or web address]/[email or web address]) Performed By: #### 1 0231, 5363, 7600 #### [facility] [address], [address] [place] [address] [employer]: Saurabh Noriega MD Cholesterol.total /Cholesterol in HDL [Mass ratio] 2.7 {ratio} Normal <5.0 [facility] Comment on above: Order Comment: FASTI NG:YES FASTING: YES Performed By: #### 1 0231, 5363, 7600 #### [facility] [address], [address] [place] [address] [employer] Layer: Saurabh Noriega MD NON HDL CHOLESTEROL 98 mg/dL (calc) Normal <130 [facility] Comment on above: Order Comment: FASTI NG:YES FASTING: YES Result Comment: For patients with diabetes plus 1 major ASCVD risk factor, treating to a non-HDL-C goal of <100 mg/dL (LDL-C of <70 mg/dL) is considered a therapeutic option. Performed By: #### 1 0231, 5363, 7600 #### [facility] [address], [address] [place] [address] [employer] Layer: Saurabh Noriega MD Triglyceride [Mass/Vol] 103 mg/dL Normal <150 [facility] Comment on above: Order Comment: FASTI NG:YES FASTING: YES Performed By: #### 1 0231, 5363, 7600 #### [facility] [address], [address] [address] [employer] Layer: Saurabh Noriega MD PSA, TOTALon 01-01-2021 PSA, TOTAL 0.07 ng/mL Normal < OR = 4.00 [facility] Comment on above: Result Comment: The total PSA value from this assay system is standardized against the WHO standard. The test result will be approximately 20% lower when compared to the equimolar-standardized total PSA ([place]). Comparison of serial PSA results should be interpreted with this fact in mind. This test was performed using the Siemens chemiluminescent method. Values obtained from different assay methods cannot be used interchangeably. PSA levels, regardless of value, should not be interpreted as absolute evidence of the presence or absence of disease. Performed By: #### 1 0231, 5363, 2880 #### [facility] [address], [address] [place], [place] [id number] [employer] Layer: Saurabh Noriega MD Vital Signs Date Time Vital Sign Value Performing Clinician Facility 10-09-2023 15:43-0400 Blood Pressure Location Syed WELLS [facility] 10-09-2023 15:43-0400 Body temperature 98.6 [degF] Syed WELLS [facility] 10-09-2023 15:43-0400 Diastolic blood pressure 88 mm[Hg] Syed WELLS [facility] 06-24-2024 15:43-0400 Heart rate 71 /min Syed WELLS [facility] 10-09-2023 15:43-0400 Respiratory rate 16 /min Syed WELLS [facility] 10-09-2023 15:43-0400 Systolic blood pressure 129 mm[Hg] Syed WELLS [facility] 06-01-2022 11:40-0500 Body height 175.26 cm Rani Barbermond Other [facility] Other 06-01-2022 11:40-0500 Body mass index (BMI) [Ratio] 36.18 kg/m2 Rani Philly Other [facility] Other 06-01-2022 11:40-0500 Body temperature 99.3 [degF] Rani Barbermond Other [facility] Other 06-01-2022 11:40-0500 Body weight 111.13 kg Rani Barbermond Other [facility] Other 06-01-2022 11:40-0500 Respiratory rate 18 /min Rani Philly Other [facility] Other 06-01-2022 11:40-0500 SaO2% (BldA) [Mass fraction] 94 % Rani Philly Other [facility] Other 09-10-2021 08:35-0400 Diastolic blood pressure 86 mm[Hg] Syed WELLS [facility] 09-10-2021 08:35-0400 Mean blood pressure 100 mm[Hg] [facility] 09-10-2021 08:35-0400 Systolic blood pressure 129 mm[Hg] Syed WELLS [facility] 09-10-2021 08:10-0400 Blood Pressure Location Syed WELLS [facility] 09-10-2021 08:10-0400 Diastolic blood pressure 88 mm[Hg] Syed WELLS [facility] 09-10-2021 08:10-0400 Heart rate 78 /min [facility] 09-10-2021 08:10-0400 Respiratory rate 16 /min Syed WELLS [facility] 09-10-2021 08:10-0400 Systolic blood pressure 159 mm[Hg] Syed WELLS [facility] En[facility]ters Encounter Date Encounter Type Care Provider Facility Start: 03-22-2024 ambulatory Syed Damoni ty:[facility] Start: 03-04-2024 End: 03-04-2024 Refill Laith Dickerson DO Work Phone: [facility] Start: 01-29-2024 End: 01-29-2024 Refill Laith Hall Furarceliang DO Work Phone: [facility] Start: 10-09-2023 End: 10-09-2023 ambulatory Syedterri WELLS Facility:[facility] Start: 10-09-2023 End: 10-09-2023 Patient encounter procedure Syed WELLS [facility] Start: 09-12-2023 ambulatory Syed Yahir TAMMY Facili ty:[facility] Start: 08-14-2023 ambulatory Syed R WELLS Facili ty:[facility] Start: 07-17-2023 End: 07-17-2023 ambulatory Syed Sinclair WELLS Facility:[facility] Start: 07-17-2023 End: 07-17-2023 Patient encounter procedure Syed R WELLS [facility] Start: 06-20-2023 End: 06-20-2023 ambulatory Syed Yahir TAMMY Facility:[facility] Start: 05-22-2023 End: 05-22-2023 ambulatory Syed Sinclair WELLS Facility:[facility] Start: 05-22-2023 End: 05-22-2023 Patient encounter procedure Syed Sinclair WELLS [facility] Start: 05-04-2023 Stephen dewey DO Work Phone: [facility] Start: 04-24-2023 End: 04-24-2023 ambulatory Syed Yahir WELLS Facility:[facility] [place] Start: 03-20-2023 End: 03-20-2023 ambulatory Syed Yahir WELLS Facility:[facility] [place] Start: 03-20-2023 End: 03-20-2023 Patient encounter procedure Syedterri WELLS [facility] Start: 02-20-2023 End: 02-20-2023 ambulatory Syed WELLS Facility:[facility] Start: 02-20-2023 End: 02-20-2023 Patient encounter procedure [facility] Start: 01-23-2023 End: 01-23-2023 [facility]ulatory [facility] Start: 12-26-2022 End: 12-26-2022 ambulatory [facility] Start: 12-26-2022 End: 12-26-2022 Patient encounter procedure Syed WELLS [facility] [place] Start: 11-28-2022 End: 11-28-2022 ambulatory Syed WELLS Facility: [facility] Start: 11-28-2022 End: 11-28-2022 Patient encounter procedure [facility]LL[facility] Start: 10-31-2022 End: 10-31-2022 ambulatory Syed WELLS Facility: [facility] Start: 10-31-2022 End: 10-31-2022 Patient encounter procedure Syed WELLS [facility] Start: 10-03-2022 End: 10-03-2022 Patient encounter procedure Syed WELLS [facility] [place] Start: 08-22-2022 End: 08-23-[address] SYED WELLS . Facility:[facility] Start: 08-08-2022 End: 08-08-2022 Patient encounter procedure [facility]LL[facility] Start: 07-11-2022 End: 07-11-2022 Patient encounter procedure Syed WELLS [facility] [place] [employer] Start: 06-13-2022 End: 06-13-2022 Patient encounter procedure Syed WELLS [facility] [place] Start: 06-01-2022 End: 06-01-2022 ambulatory Rani Fraga Other [facility] Other Start: 06-01-2022 Office outpatient vi sit 15 minutes Rani Fraga [facility] Start: 05-16-2022 End: 05-16-2022 Patient encounter procedure Syed WELLS [facility] Start: 04-19-2022 End: 04-19-2022 Patient encounter procedure CARLINE Robina BROWN [facility] [employer] Start: 03-21-2022 End: 03-21-2022 Patient encounter procedure Syed WELLS [facility] [employer] Start: 02-23-2022 End: 02-24-[address] SYED WELLS . Facility:[facility] Start: 02-21-2022 End: 02-21-2022 Patient encounter procedure Syed WELLS [facility] [place] Start: 02-07-2022 End: 02-08-[address] SYED WELLS . Facility:[facility] Start: 02-04-2022 End: 02-05-[address] LAITH DICKERSON Facility:[facility] Start: 01-24-2022 End: 01-24-2022 Patient encounter procedure Syed Yahir WELLS [facility] Start: 12-24-2021 End: 12-24-2021 Patient encounter procedure Syedterri WELLS [facility] Start: 10-29-2021 End: 10-29-2021 Patient encounter procedure Syed R WELLS [facility] Start: 10-04-2021 End: 10-04-2021 Patient encounter procedure Syed WELLS [facility] Start: 09-10-2021 End: 09-10-2021 Patient encounter procedure Syed R TAMMY [facility] Start: 08-31-2021 End: 09-01-[address] SYED WELLS . Facility: Procedures Date Procedure Procedure Detail Performing Clinician Start: 03-13-2023 Adult depression scr eening assessment Laith Dickerson DO Work Phone: Start: 02-04-[address] RAUL WELLS . Comment on above: Result Comment: Prev iously reported as: <4.00 On 02/04/2022 16:57 By CV2 Performed By: #### P [facility] #### [facility] [address] [place] [address] Dr. Ying Spencer Start: 03-29-2019 Excision of cyst Raul WELLS Comment on above: EXCISION CYST RIGHT UPPER BACK Start: 03-08-2019 Arthroscopy of knee Cathie WELLS Comment on above: right Start: 04-17-2018 Arthroscopy of knee Cathie WELLS Start: 08-16-2016 Cystoscopy Syed BYRNE Start: 03-17-2015 Repair of umbilical hernia Syed WELLS Start: 11-19-2013 Colonoscopy Laith fernandez DO Work Phone: Appendectomy Syed WELLS Colonoscopy Syed WELLS lacerated tendon lef t wrist Syed WELLS Urodynamic studies Syed NGUYEN Plan of Treatment Date Care Activity Detail Author Start: 04-04-2024 End: 04-04-2024 Patient encounter procedure 04/04/2024 3:45 PM EST [facility] [address] [place] [address] Laith Dickerson DO [address], [place] [address] [facility] Start: 03-13-2024 Adult BMI Screening Adult BMI Screen ing [facility] Start: 03-13-2024 Depression Screening Depression Scre ening [facility] Start: 03-13-2024 Tobacco Screening Tobacco Screening [facility] Start: 12-17-2023 COVID-19 Vaccine ( season) COVID-19 Vaccine () [facility] Start: 12-17-2023 COVID-19 Vaccine () COVID-19 Vaccine () [facility] Start: 12-17-2023 Influenza vaccination Influenza Vacc ine [facility] Start: 11-20-2023 Screening for malign ant neoplasm of colon Colonoscopy [facility] Start: 12-16-2022 COVID-19 Vaccine () COVID-19 Vaccine () [facility] Start: 12-16-2022 Influenza vaccination Influenza Vacc ine [facility] Start: 1980 DTaP,Tdap and Td Vaccines (1 - Tdap) DTaP,Tdap and Td Vaccines (1 - Tdap) [facility] Start: 09-28-1979 Adult BMI Follow Up Plan Adult BMI Follow Up Plan [facility] Immunizations Immunization Date Immunization Notes Care Provider Bhupendra krishnamurthy 02-21-2022 influenza virus vaccine, unspecified formulation Syed WELLS [facility] 02-21-2022 influenza, injectabl e, quadrivalent, preservative free Laith Bessrebecca DO Work Phone: [facility] 03-10-2021 SARS-CoV-2 (COVID-19 ) mRNA BNT-162b2 vax Syed WELLS [facility] 07-21-2020 SARS-CoV-2 (COVID-19 ) mRNA BNT-162b2 vax Syed WELLS [facility] 06-30-2020 SARS-CoV-2 (COVID-19 ) mRNA BNT-162b2 vax Syed WELLS [facility] 04-17-2020 SARS-CoV-2 (COVID-19 ) mRNA BNT-162b2 vax Syed WELLS [facility] Comment on above: Result Comment: pt h as had 3 shots to date but does not know the date 02-12-2020 zoster vaccine recombinant Syed WELLS [facility] 12-13-2019 influenza virus vaccine, unspecified formulation Syed WELLS [facility] 12-13-2019 influenza, injectabl e, quadrivalent, preservative free Laith Furlong DO Work Phone: [facility] 12-13-2019 zoster vaccine recombinant [facility] 02-04-2019 influenza virus vaccine, unspecified formulation [facility] 02-04-2019 influenza, injectabl e, quadrivalent, preservative free Laith Furlong DO Work Phone: [facility] 01-27-2018 influenza virus vaccine, unspecified formulation [facility] [employer] [facility] 01-27-2018 influenza, seasonal, injectable, preservative free Laith Furlong DO Work Phone: [facility] 01-20-2017 influenza virus vaccine, unspecified formulation [facility] 01-20-2017 influenza, seasonal, injectable, preservative free Laith Furlong DO Work Phone: [facility] 01-13-2016 influenza virus vaccine, unspecified formulation [facility] 01-13-2016 influenza, seasonal, injectable, preservative free Laith Furlong DO Work Phone: [facility] flu vacc [id number] mos up,PF, (FLUARIX QUAD [id number], PF,) 60 mcg (15 mcg x 4)/0.5 mL syringe Laith Furlong DO Work Phone: [facility] Payers Date Payer Category Payer Commercial Managed C are - PPO [employer] [id number] 2021 Unknown [employer] [place] [employer] [id number] 2021-Present [phone] [address] [place] [address] [id number] 1961 Unknown [id number] 1961 Unknown [id number] 1961 Unknown [id number] 2.16.840.1.836643.3.579.2. 593 1960 Unknown [id number] 2.16.840.1.570574.3.579.2. 593 1961 Unknown [id number] 2.16.840.1.863649.3.579.2. 593 1961 Unknown [id number] 2.16.840.1.157423.3.579.2. 727 1961 Unknown [id number] 2.16.840.1.208033.3.579.2. 727 1961 Unknown [id number] 2.16.840.1.902474.3.579.2. 727 1961 Unknown [id number] 2.16.840.1.697842.3.579.2. 727 1961 Unknown [id number] 2.16.840.1.423537.3.579.2. 727 1961 Unknown [id number] 2.16.840.1.448950.3.579.2. 727 1961 Unknown [id number] 2.16.840.1.304452.3.579.2. 727 1961 Unknown [id number] 2.16.840.1.865095.3.579.2. 72 1961 Unknown [id number] 2.16.840.1.823358.3.579.2. 1961 Unknown [id number] 2.16.840.1.638213.3.579.2. 1961 Unknown [id number] 2.16.840.1.521403.3.579.2. 1961 Unknown [id number] 2.16.840.1.771985.3.579.2. 1961 Unknown [id number] 2.16.840.1.989853.3.579.2. 72 1961 Unknown [id number] 2.16.840.1.376446.3.579.2. 727 1959 Unknown [id number] 2.16.840.1.782585.19 Social History Date Type Detail Facility Start: 09-10-2021 End: 10-09-2023 Tobacco smoking status Ex-smoker (finding) [facility] Start: 03-13-2023 Sex Assigned At Male [facility] Start: 03-08-2022 Tobacco smoking stat us RIIS Never smoked tobacco [facility] Start: 03-08-2022 Tobacco use and exposure Smoke less tobacco non-user [facility] Start: 03-13-2023 Alcohol intake Current drinke r of alcohol (finding) [facility] Start: 03-13-2023 Alcohol intake [facility] Has the electric, ga s, oil, or [employer] threatened to shut off services in your home in past 12Mo No [facility] Do you belong to any clubs or organizations such as yarsanism groups, unions, fraternal or athletic groups, or school groups? Yes [facility] Are you now , , , , never or living with a partner? [facility] How often to you hav e a drink containing alcohol? 2-3 time sa week [facility] How many standard dr inks containing alcohol do you have on a typical day? [address] [facility] How often do you hav e 6 or more drinks on 1 occasion? Weekly [facility] How hard is it for y ou to pay for the very basics like food, housing, medical care, and heating Not hard at all [facility] Do you feel stress - tense, restless, nervous, or anxious, or unable to sleep at night because your mind is troubled all the time - these days [OSQ] Not at all [facility] Start: 1960 Sex Assigned At Not on file [facility] [employer] [facility] Start: 11-20-2014 Sex Male (finding) [facility] Functional Status Date Assessment Result Facility 10-09-2023 Functional Status N/A [facility] 02-21-2022 Functional Status N/A [facility] Clinical Notes 09-10-2021 to 01-29-2024 Telephone Encounter - Laith Dickerson DO - 01/29/2024 2:13 AM EDTTelephone Encounter - Laith Dickerson DO - 01/29/2024 2:13 AM EDT Note Date & Type Note Facility 01-29-2024 Miscellaneous Notes Rx sent in. He is overdue for an appointment. He was last seen for a wellness on March 13 last year. Might as well make it a wellness and schedule it after that date documented in this encounter [facility] 10-14-2024 Telephone encounter Note Rx sent in. He is overdue for an appointment. He was last seen for a wellness on March 13 last year. Might as well make it a wellness and schedule it after that date [facility] 10-09-2023 Hospital Discharg e instructions Patient Education 10/09/2023 16:28:59 Hypogonadism, Male Hypogonadism, Male Male hypogonadism is a condition of having a level of testosterone that is lower than normal. Testosterone is a chemical, or hormone, that is made mainly in the testicles. In boys, testosterone is responsible for the development of male characteristics during puberty. These include: Making the penis bigger. Growing and building the muscles. Growing facial hair. Deepening the voice. In adult men, testosterone is responsible for maintaining: An interest in sex and the ability to have sex. Muscle mass. Sperm production. Red blood cell production. Bone strength. Testosterone also gives men energy [...] the causes? This condition is caused by: A natural decrease in testosterone that occurs as a man grows older. This is the main cause of this condition. Use of medicines, such as antidepressants, steroids, and opioids. Diseases and conditions that affect the testicles or the making of testosterone. These include: ?Injury or damage to the testicles from trauma, cancer, cancer treatment, or infection. ?Diabetes. ?Sleep apnea. ?Genetic conditions that men are born with. ?Disease of the pituitary gland. This gland is in the brain. It produces hormones. ?Obesity. ?Metabolic syndrome. This is a group of diseases that affect blood pressure, blood sugar, cholesterol, and belly fat. ?HIV or AIDS. ?Alcohol abuse. ?Kidney failure. ?Other long-term or chronic diseases. What are the signs or symptoms? Common symptoms of this condition include: Loss of interest in sex (low sex drive). Inability to have or maintain an erection (erectile dysfunction). Feeling tired (fatigue). Mood changes, like irritability or depression. Loss of muscle and body hair. Infertility. Large breasts. Weight gain (obesity). How is this diagnosed? Your health care provider can diagnose hypogonadism based on: Your signs and symptoms. A physical exam to check your testosterone [...] replacement therapy. Testosterone can be given by: Injection or through pellets inserted under the skin. Gels or patches placed on the skin or in the mouth. Testosterone therapy is not for everyone. It has risks and side effects. Your health care provider will consider your medical history, your risk for prostate cancer, your age, and your symptoms before putting you on testosterone replacement therapy. Follow these instructions at home: Take epvr-vyk-qspvpdo and prescription medicines only as told by your health care provider. Eat foods that are high in fiber, such as beans, whole grains, and fresh fruits and vegetables. Limit foods that are high in fat and processed sugars, such as fried or sweet foods. If you drink alcohol: ?Limit how much you have to 0 2 drinks a day. ?Know how much alcohol is in your drink. In the [place] one drink equals one 12 oz bottle of beer (355 mL), one 5 oz glass of wine (148 mL), or one 1 oz glass of hard liquor (44 mL). Return to your normal activities as told by your health care provider. Ask your health care provider what activities are safe for you. Keep all follow-up visits. This is important. Contact a health care provider if: You have any of the signs or symptoms of low testosterone. You have any side effects from testosterone therapy. Summary Male hypogonadism is a condition of having a level of testosterone that is lower than normal. The natural drop in testosterone production that occurs with age is the most common cause of this condition. Low testosterone can also be caused by many diseases and conditions that affect the testicles and the making of testosterone. This condition is treated with testosterone replacement therapy. There are risks and side effects of [...] health care provider. Document Revised: 12/03/2020 Document Reviewed: 12/03/2020 [employer] Patient Education 2022 [employer]. Follow Up Care 04/24/2023 15:34:21 With:TAMMY RUDOLPH, Syed Sinclair, URL Address: [facility] [address], [place] [address] [phone] When: Unknown [facility] 06-01-2022 Evaluation note Encounter Date Diagnosis Assessment Notes May, Bronchitis (ICD-10 - J40) Acute bronchitis material was printed Drink plenty fluids, get plenty of rest. Continue your zitj-dtn-ddmvj er cold medications. Take the prednisone as prescribed until gone. Use the albuterol inhaler as prescribed as needed for cough or shortness of breath. Follow-up with your family physician if no improvement in 2 to 3 days. Off work today and tomorrow. [facility] Other 11-07-2022 Hospital Discharge instructions Patient Education [...] Follow these instructions at home: Medicines Take pxtz-lmg-jmqobfh and prescription medicines only as told by [...] 03/31/2001 Document Revised: 03/16/2018 Document Reviewed: 04/19/2017 [employer] Patient Education 2020 [employer] Follow Up Care 01/24/2022 15:34:27 With:TAMMY RUDOLPH, Syed Sinclair, URL Address: [facility] [address], [place] [address]- [phone] When:08/21/2022 [facility] [place] 05-27-2022 Hospital Discharge instructions Patient Education 09/10/2021 [...] urethra. Follow these instructions at home: Take hxen-ncy-yftnici and prescription medicines only as told by [...] 04/03/2006 Document Revised: 02/26/2019 Document Reviewed: 05/08/2017 [employer] Patient Education 2020 [employer]. Follow Up Care 08/16/2021 14:50:02 With:TAMMY RUDOLPH, Syed Sinclair, URL Address: [facility] [address] , [place] [address]- When:03/13/2022 [facility] evaluation + Plan note Future Appointments Appointment Date:10/04/2021 03:00:00 PM Scheduled Provider: Location:[facility] Appointment Type:URO Nurse Visit Diagnostic Tests Pending * Testosterone Level Total 09/10/21 Future Scheduled Tests Laboratory* CBC w/ Auto Diff 09/10/21 [facility] evaluation + Plan note Future Appointments Appointment Date:11/01/2021 03:00:00 PM Scheduled Provider: Location:[facility] Appointment Type:URO Nurse Visit Future Scheduled Tests Laboratory* CBC w/ Auto Diff 09/10/21 [facility] evaluation + Plan note Future Appointments Appointment Date:11/26/2021 08:00:00 AM Scheduled Provider: Location:[facility] Appointment Type:URO Nurse Visit Future Scheduled Tests Laboratory* CBC w/ Auto Diff 09/10/21 [facility] evaluation + Plan note Future Appointments Appointment Date:01/24/2022 02:45:00 PM Scheduled Provider: Location:[facility] Appointment Type:URO Nurse Visit Future Scheduled Tests Laboratory* CBC w/ Auto Diff 09/10/21 [facility] evaluation + Plan note Future Appointments Appointment Date:02/21/2022 03:30:00 PM Scheduled Provider:Syed WELLS MD Location:[facility] Appointment Type:URO Office Visit Diagnostic Tests Pending * Testosterone Level Total 01/24/22 Future Scheduled Tests Laboratory* CBC w/ Auto Diff 09/10/21 [facility] evaluation + Plan note Future Appointments Appointment Date:03/21/2022 02:45:00 PM Scheduled Provider: Location:[facility] Appointment Type:URO Nurse Visit Diagnostic Tests Pending * CBC w/ Auto Diff 02/21/22 Future Scheduled Tests Laboratory* CBC w/ Auto Diff 09/10/21 [facility] evaluation + Plan note Future Appointments Appointment Date:04/19/2022 02:45:00 PM Scheduled Provider: Location:[facility] Appointment Type:URO Nurse Visit Future Scheduled Tests Laboratory* CBC w/ Auto Diff 09/10/21 [facility] evaluation + Plan note Future Appointments Appointment Date:05/16/2022 02:45:00 PM Scheduled Provider: Location:[facility] Appointment Type:URO Nurse Visit Future Scheduled Tests Laboratory* CBC w/ Auto Diff 09/10/21 [facility] evaluation + Plan note Future Appointments Appointment Date:06/13/2022 02:45:00 PM Scheduled Provider: Location:[facility] Appointment Type:URO Nurse Visit Future Scheduled Tests Laboratory* CBC w/ Auto Diff 09/10/21 [facility] evaluation + Plan note Future Appointments Appointment Date:07/11/2022 02:45:00 PM Scheduled Provider: Location:[facility] Appointment Type:URO Nurse Visit Future Scheduled Tests Laboratory* CBC w/ Auto Diff 09/10/21 [facility] evaluation + Plan note Future Appointments Appointment Date:08/08/2022 02:45:00 PM Scheduled Provider: Location:[facility] Appointment Type:URO Nurse Visit Future Scheduled Tests Laboratory* CBC w/ Auto Diff 09/10/21 [facility] [employer] evaluation + Plan note Future Appointments Appointment Date:09/05/2022 02:30:00 PM Scheduled Provider:Syed WELLS MD Location:[facility] Appointment Type:URO Office Visit Future Scheduled Tests Laboratory* CBC w/ Auto Diff 09/10/21 [facility] evaluation + Plan note Future Appointments Appointment Date:10/31/2022 02:45:00 PM Scheduled Provider: Location:[facility] Appointment Type:URO Nurse Visit [facility] evaluation + Plan note Future Appointments Appointment Date:11/28/2022 02:45:00 PM Scheduled Provider: Location:[facility] Appointment Type:URO Nurse Visit [facility] evaluation + Plan note Future Appointments Appointment Date:12/26/2022 02:45:00 PM Scheduled Provider: Location:[facility] Appointment Type:URO Nurse Visit [facility] evaluation + Plan note Future Appointments Appointment Date:01/23/2023 02:30:00 PM Scheduled Provider: Location:[facility] Appointment Type:URO Nurse Visit [facility] evaluation + Plan note Future Appointments Appointment Date:03/20/2023 02:30:00 PM Scheduled Provider: Location:[facility] Appointment Type:URO Nurse Visit Appointment Date:04/21/2023 08:45:00 AM Scheduled Provider:Syed WELLS MD Location:[facility] Appointment Type:URO Office Visit [facility] evaluation + Plan note Future Appointments Appointment Date:04/24/2023 03:00:00 PM Scheduled Provider:[facility] Type[facility] Office Visit [facility] evaluation + Plan note Future Appointments Appointment Date:06/19/2023 02:45:00 PM Scheduled Provider: Location:[facility] Appointment Type:URO Nurse Visit Appointment Date:10/13/2023 08:00:00 AM Scheduled Provider:[facility] WELLS [facility] Type[facility] Office Visit [facility] evaluation + Plan note Future Appointments Appointment Date:08/14/2023 03:00:00 PM Scheduled Provider: Location:[facility] Appointment Type:URO Nurse Visit Appointment Date:09/12/2023 03:00:00 PM Scheduled Provider: Location:[facility] Appointment Type:URO Nurse Visit Appointment Date:10/09/2023 03:00:00 PM Scheduled Provider:Syed WELLS MD Location:[facility] Appointment Type:URO Office Visit [facility] evaluation + Plan note Future Appointments Appointment Date:03/22/2024 08:00:00 AM Scheduled Provider:Syed WELLS MD Location:[facility] Appointment Type:URO Office Visit Diagnostic Tests Pending * Testosterone Level Total 10/09/23 * PSA Total 10/09/23 [facility] History general Narrative - Reported* Type Description Date Medical History Anemic Medical History HTN Medical History ED Medical History GERD Medical History Enlarged Prostate Medical History Diverticulitis Surgical History Appendectomy 1979 Surgical History colonoscopy Surgical History hernia repair Surgical History knee arthroscopy right Hospitalization History See past surgical hx [facility] Other Hospital course Narrative No data available for this section [facility] Hospital Discharge instructions No data available for this section [facility] InstructionsNot on filedocumented in this encounter [facility] No data available for this section [facility] Summary Purpose Family History No Family [...] CREATED AUTHOR AUTHOR'S ORGANIZ ATION 08/26/2022 [facility] DATE CREATED AUTHOR AUTHOR'S ORGANIZ ATION 10/10/2023 Darryn Cervantes [facility] Care Team (unrecognized sect ion and content) Dish Washer Relationship Specialty Start Date End Date Laith Dickerson DO [address] [place] [address] PCP - General Family Medicine 02/02/22 Dish Washer Relationship Specialty Start Date End Date Laith Dickerson DO [address], [place] [address] PCP - General Family Medicine 02/02/22 REASON [...] BE BASED ON THE PRIMARY CLINICAL RECORDS. [employer] provides no warranty or guarantee of the accuracy or completeness of information in this document.
[2024-03-11 07:49] LABS: Prostate Specific Antigen Dx <0.13 ng/mL (<=4.00)
[2024-03-12 04:07] LABS: Testosterone 435 ng/dL (264-916)
== END 2024-03-11 06:49 | disposition home or self-care (01) ==
LOC: LAB 06:49
PROVIDERS: PCP Family Medicine; Visit Provider Urology
DX: N40.1 Benign prostatic hyperplasia with lower urinary tract symptoms (principal); E29.1 Testicular hypofunction
CPT/HCPCS: 36415; 84153; 84403

== ENCOUNTER 2024-04-04 17:25 | Emergency (ER) | payer OTHER, SELFPAY ==
[2024-04-04 17:29] VITALS: BP 173/107; PULSE 75; TEMP 36.4; O2SAT 96; BMI 36.8
--- OUTSIDE RECORDS SUMMARY | 2024-04-04 17:33 | XMS_ITS | CCD ---
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 Role Phone LAITH DICKERSON Primary Care Physician Rani Fraga Unavailable WELLS ., DR BOYER [...] Unavailable Furlong Laith TRINIDAD Primary Care Provider Syed WELLS Attending Unavailable WELLS, Syed Sinclair Attending Unavailable WELLS, Syed Sinclair Attending Unavailable WELLS, Syed Sinclair Attending Unavailable WELLS, Syed R Attending Unavailable WELLS, Syed R Attending Unavailable WELLS, Syed Sinclair Attending Unavailable WELLS, Syed Sinclair Attending Unavailable Allergies Allergy Classification Reported Allergen(s) Allergy Type Date of Onset Reaction(s) Facility (20 sources) levoFLOXacin; Translations: [levofloxacin] Drug Allergy 4 muscle cramps, Other (See Comments) [facility] (1 source) levoFLOXacin Drug Allergy 1 [facility] Repository Medications Current Medications Medication Drug Class(es) Dates Sig (Normalized) Sig (Original) acyclovir 400 mg oral tablet (7 sources) Herpesvirus Nucleoside Analog DNA Polymerase Inhibitor, [...] 180 tablet 1 05/04/2023 Active Acyclovir Active [id number] 200 actuat albuterol 0.09 mg/actuat metered dose inhaler (6 sources) beta2-Adrenergic Agonist Start: 06-01-2022 take 2 [...] (20 sources) Dihydropyridine Calcium Channel Preston Start: 03-25-2024 amLODIPine (NORVASC) 10 mg tablet TAKE 1 TABLET DAILY 90 tablet 3 03/25/2024 Active Start: 02-20-2019 End: 03-25-2024 amLODIPine (NORVASC) 10 mg t ablet TAKE 1 TABLET DAILY 90 tablet 3 03/31/2023 03/25/2024 Discontinued amLODIPine Besyl ate Active atorvastatin 20 mg oral tablet (20 sources) HMG-CoA Reductase Inhibitor Start: 03-25-2024 atorvastatin (LIPITO R) 20 mg tablet TAKE 1 TABLET DAILY 90 tablet 03/25/2024 Active Start: 02-20-2019 End: 03-25-2024 atorvastatin (LIPITOR) 20 mg tablet TAKE 1 TABLET DAILY 90 tablet 3 03/31/2023 03/25/2024 Discontinued Fiber Tab (20 sources) Start: 10-03-2018 take [...] supply, # 10 mL, Refills(s) 3, Pharmacy: [facility], 177, cm, 10/16/20 9:03:00 EDT, Height/Length Dosing, 117, kg, 10/16/20 9:03:00 EDT, Weight Dosing Start Date: 02/08/21 Status: Ordered dicyclomine hydrochloride 20 mg oral tablet (20 sources) Anticholinergic Start: 02-20-2019 take 1 tablet by mouth twice daily dicyclomine 20 mg Tab 20 mg = 1 tab(s), Oral, BID, Other (see comment) Start Date: 02/20/19 Status: Ordered dutasteride 0.5 mg oral capsule (5 sources) 5-alpha Reductase Inhibitor take 1 capsule by mouth in the morning dutasteride (AVODART) 0.5 mg capsule Take 1 capsule (0.5 mg total) by mouth in the morning. Active [id number] 0.3 ml EPINEPHrine 1 mg/ml auto-injector (5 sources) alpha-Adrenergic Agonist, beta-Adrenergic Agonist, Catecholamine EPINEPHrine (EPIPEN) 0.3 mg/0.3 mL auto-injector epinephrine 0.3 mg/0.3 mL injection, auto-injector Active esomeprazole 40 mg delayed release oral capsule (20 sources) Proton Pump Inhibitor Start: 03-11-2024 esomeprazole (NexIUM) 40 mg capsule Indications: Gastroesophageal reflux disease without esophagitis TAKE 1 CAPSULE DAILY 90 capsule 03/11/2024 Active Start: 09-13-2023 End: 03-11-2024 esomeprazole (NexIUM) 40 mg capsule Indications: Gastroesophageal reflux disease without esophagitis TAKE 1 CAPSULE DAILY 90 capsule 1 09/13/2023 03/11/2024 Discontinued Start: 03-17-2023 esomeprazole ( NexIUM) 40 mg [...] Date: 10/03/18 Status: Ordered Flonase 0.05 mg/inh [place] (1 source) Start: 03-06-2015 Flonase 0.05 m g/inh [place] 2 spray(s), Nasal, Daily, Refill(s) 0, Sinus symptoms Start Date: 03/06/15 Status: Ordered fluocinolone acetonide 0.1 mg/ml topical oil (5 sources) Corticosteroid Start: 10-25-2022 fluocinolone 0 .01 [...] Active Start: 03-06-2015 Flonase 0.05 m g/inh [place] 2 spray(s), Nasal, Daily, Refill(s) 0, Sinus symptoms Start Date: 03/06/15 Status: Ordered Flonase Active hydroCHLOROthiazide 12.5 mg / lisinopril 20 mg oral tablet (20 sources) Thiazide Diuretic, Angiotensin Converting Enzyme Inhibitor Start: 11-29-2013 End: 03-04-2024 lisinopril-hydroCHLOROthiazi de (PRINZIDE,ZESTORETIC) 20-12.5 mg per tablet TAKE 1 TABLET DAILY 90 tablet 1 03/04/2024 Active Lisinopril-hydro CHLOROthiazide Active lisinopril 20 mg oral tablet (13 sources) Angiotensin Converting Enzyme Inhibitor Start: 10-31-2023 End: 01-29-2024 lisinopriL (PRINIVIL,ZESTRIL) 20 mg tablet TAKE 1 TABLET DAILY (TAKE WITH LISINOPRIL/HCTZ 20/12.5 MG DAILY) 90 tablet 01/29/2024 Active Start: 08-08-2022 End: 05-04-2023 lisinopriL (PRINIVIL,ZESTRIL ) 20 mg tablet TAKE 1 TABLET DAILY (TAKE WITH LISINOPRIL/HCTZ 20/12.5 MG DAILY) 90 tablet 1 05/04/2023 Active 24 hr metoprolol succinate 25 mg extended release oral tablet (20 sources) beta-Adrenergic Preston Start: 03-10-2023 End: 03-04-2024 metoprolol succinate XL (TOPROL XL) 25 mg 24 hr tablet TAKE 1 TABLET DAILY 90 tablet 1 03/04/2024 Active Start: 02-20-2019 take 1 tablet by [...] mirabegron 50 mg extended release oral tablet (12 sources) beta3-Adrenergic Agonist Start: 02-21-2022 take 1 tablet by mouth once daily Myrbetriq 50 mg oral tablet, extended release 50 mg = 1 tab(s), Oral, Daily, # 90 tab(s), Refills(s) 3, Pharmacy: [facility], 177, cm, 02/21/22 16:00:00 EST, Height/Length Dosing, 109, kg, 02/21/22 16:00:00 EST, Weight Dosing Start Date: 02/21/22 Status: Ordered Start: 02-21-2022 take 1 tablet by bibi th every twenty-four hours mirabegron (MYRBETRIQ) 50 mg tablet extended release 24 hr Take 1 tablet (50 mg total) by mouth. 02/21/2022 Active multivitamin capsule (5 sources) multivitamin cap jimmy daily. Active multivitamin [...] # 30 tab(s), Refills(s) 6, Pharmacy: [facility] [address] [place] [address], 177, cm, 04/30/21 8:39:00 EST, Height/Length Dosing, 117.2, kg, 04/30/21 8:39:00 EST, Weight Dosing Start Date: 04/30/21 Status: Ordered pimecrolimus 10 mg/ml topical cream (5 sources) Calcineurin Inhibitor Immunosuppressant Start: 03-10-2022 pimecrolimus [...] Active Start: 02-20-2019 take 1 capsule by [facility] once daily potassium chloride 10 mEq Cap-ER 10 mEq = 1 cap(s), Oral, Daily, Prophylaxis Start Date: 02/20/19 Status: Ordered Start: 02-20-2019 take 1 capsule by [facility] once daily potassium chloride 10 mEq Cap-ER 10 mEq = 1 cap(s), Oral, Daily, Prophylaxis Start Date: 02/20/19 Status: Ordered predniSONE 20 mg oral tablet (6 sources) Start: 06-01-2022 take 1 tablet by [...] Active Start: 05-28-2021 take 1 tablet by [facility] once daily tadalafil 20 mg Tab 20 mg = 1 tab(s), Oral, Daily, # 30 tab(s), Refills(s) 6, Pharmacy: [facility] [facility] 177, cm, 04/30/21 8:39:00 EST, Height/Length Dosing, [...] q4wk, # 10 mL, Refills(s) 3, Pharmacy: [facility] [id number], 177, cm, 10/09/23 15:48:00 EDT, Height/Length Dosing, 109.4, kg, 10/09/23 15:48:00 EDT, Weight Dosing Start Date: 10/09/23 Status: Ordered Start: 04-24-2023 Depo-Testoster one 200 mg/mL intramuscular solution 350 mg, IntraMuscular, q4wk, # 10 mL, Refills(s) 5, Pharmacy: [facility], 177, cm, 04/24/23 15:56:00 EST, Height/Length Dosing, 109, kg, 04/24/23 15:56:00 EST, Weight Dosing Start Date: 04/24/23 Status: Ordered Start: 09-05-2022 Depo-Testoster one 200 mg/mL intramuscular solution 400 mg, IntraMuscular, q4wk, # 10 mL, Refills(s) 5, Pharmacy: [facility], 177, cm, 09/05/22 15:39:00 EDT, Height/Length Dosing, 109, kg, 09/05/22 15:39:00 EDT, Weight Dosing Start Date: 09/05/22 Status: Ordered Start: 07-22-2022 inject 350 mg by int ramuscular injection every four months Depo-Testosterone 200 mg/mL intramuscular solution 350 mg, IntraMuscular, q4wk, Dispense 3 month supply, # 10 mL, Refills(s) 2, Pharmacy: [facility], 177, cm, 02/21/22 16:00:00 EST, Height/Length Dosing, 109, kg, 02/21/22 16:00:00 EST, Weight Dosing Start Date: 07/22/22 Status: Ordered Start: 04-25-2022 inject 350 mg by int ramuscular injection every four months Depo-Testosterone 200 mg/mL intramuscular solution 350 mg, IntraMuscular, q4wk, Dispense 3 month supply, # 10 mL, Refills(s) 1, Pharmacy: [facility], 177, cm, 02/21/22 16:00:00 EST, [...] supply, # 10 mL, Refills(s) 1, Pharmacy: [facility], 177, cm, 09/10/21 8:12:00 EDT, Height/Length Dosing, 117.2, kg, 09/10/21 8:12:00 EDT, Weight Dosing Start Date: 11/01/21 Status: Ordered Start: 02-08-2021 inject 450 mg by int ramuscular injection every four months Depo-Testosterone 200 mg/mL intramuscular solution 450 mg, IntraMuscular, q4wk, Dispense 3 month supply, # 10 mL, Refills(s) 3, Pharmacy: [facility], 177, cm, 10/16/20 9:03:00 EDT, [...] Sig (Original) cholecalciferol 0.125 mg oral tablet (6 sources) Vitamin D Start: 11-29-2013 take 1 [...] Problem Date Documented Date Episodic/Chronic Anxiety disorders (5 sources) Anxiety state; Translations: [Generalized anxiety disorder] [...] HYPOFUNCTION] Onset: 08-23-19 Chronic Other gastrointestinal disorders (5 sources) Irritable bowel syndrome with diarrhea; Translations: [Irritable bowel syndrome with diarrhea] Onset: 09-20-19 18 03-08-2022 Chronic Other male genital disorders (4 sources) Male erectile dysfunction, unspecified; Translations: [Erectile dysfunction] Onset: 09-11-19 Chronic Other male genital disorders (20 sources) Impotence of organic origin 11-12-2018 Chronic Other male genital disorders (5 sources) Secondary erectile dysfunction; Translations: [Male erectile [...] hypercholesterolemia 03-06-2015 Episodic Other upper respiratory infections (5 sources) Chronic sinusitis; Translations: [Chronic sinusitis, unspecified] Onset: 04-04-20 17 03-08-2022 Chronic Spondylosis; intervertebral disc disorders; other back problems (5 sources) Annular tear of lumbar disc; Translations: [Other intervertebral disc degeneration, lumbar region] Onset: 11-19-19 14 03-08-2022 Chronic Unclassified (20 sources) Sebaceous cyst of skin 03-25-2019 Past or Other Problems Problem Classification Problem Date Documented Da te Episodic/Chronic Allergic reactions (10 sources) Eczema; Translations: [Dermatitis, unspecified] Onset: 03-08-2022 03-08-2022 Episodic Deficiency and other anemia (20 sources) Anemia; Translations: [Anemia, unspecified] Onset: 03-13-2023 02-20-2019 Episodic Deficiency and other anemia (5 sources) Iron deficiency anemia; Translations: [Iron deficiency anemia, unspecified] Onset: 10-15-2018 03-08-2022 Episodic Fluid and electrolyte disorders (10 sources) Drug-induced hypokalemia; Translations: [Hypokalemia] Onset: 04-25-2019 03-08-2022 Episodic Genitourinary symptoms and ill-defined conditions (20 sources) Nocturia; Translations: [Nocturia] Onset: 09-10-2021 Episodic Joint disorders and dislocations; trauma-related (20 sources) Tear of medial meniscus of knee; Translations: [Other tear of medial meniscus, current injury, unspecified knee, initial encounter] Onset: 01-23-2023 02-20-2019 Episodic Mood disorders (5 sources) Mood disorders Onset: 03-13-2023 03-13-2023 Other liver diseases (5 sources) Elevated liver enzymes level; Translations: [Abnormal [...] Resolved: 03-06-2015 11-12-2018 Episodic Other skin disorders (5 sources) Folliculitis; Translations: [Follicular disorder, unspecified] Onset: 04-04-2017 03-08-2022 Episodic Other skin disorders (5 sources) Sebaceous cyst of skin; Translations: [Sebaceous cyst] Onset: 03-08-2022 03-08-2022 Episodic Spondylosis; intervertebral disc disorders; other back problems (5 sources) Chronic sacroiliac joint pain; Translations: [Sacrococcygeal [...] coated tablet) fluticasone nasal (Flonase 0.05 mg/inh [place]) hydrochlorothiazide -lisinopril (hydrochlorothiazid e-lisinopril 12.5 mg-20 mg [...] RUDOLPH, Syed Sinclair Where: [facility] Patient Educationon 10-09-19 Patient Education Urology Hypogonadism, Male Male hypogonadism [...] Follow these instructions at home: ? Take islh-utm-cjworsy and prescription medicines only as told by [...] Revised: 12/03/2020 Document (more content not included)... [facility] Provider Letteron 10-09-2023 Provider Letter October 09, [address] [id number] : 1960 To Whom It May Concern, Please excuse above patient from work. Date of Appointment: From: 10/09/2023 To: _ May Return to Work On:10/10/2023 Restrictions: none Comments: Any questions, feel free to contact our office. Sincerely, [facility] [address], [place] [address] [facility] Urology Office/Clinic Noteon 10-09-2023 Urology Office/Clinic [...] URL [facility] [address], [place] [address]- [phone] Additional Instructions: 6 mos w/ T level [...] 1000 mg, Oral, Daily Flonase 0.05 mg/inh [place], 2 spray(s), Nasal, Daily hydrochlorothiazide -lisinopril 12.5 mg-20 mg Tab, 1 tab(s), Oral, Daily Metoprolol succinate 25 mg ER Tablet, 25 mg, Oral, Daily naproxen 500 mg Tab, 500 mg= 1 tab(s), Oral, Daily Nexium, 40 mg, Oral, Daily potassium chloride 10 mEq Cap (more content not included)... [facility] Comment on above: Result Comment: Elec tronically Signed By: Syed WELLS MD\.br\Date and Time Signed: 10/09/23 16:38 EDT\.br\Electronically Co-Signed By: Radha Hess.br\Date and Time Co-Signed: 10/09/23 16:34 EDT [facility] 2023 Lab Reports [id number] DB#[id number] [facility] Ambulatory Visit Summaryon 0 07-17-2023 Ambulatory [...] mg Tab) fluticasone nasal (Flonase 0.05 mg/inh [place]) hydrochlorothiazide -lisinopril (hydrochlorothiazid e-lisinopril 12.5 mg-20 mg [...] PM EDT With: Where: [facility] Invalid Interpretation Code [address] [place] [address]- \.br\ Monday 3:00 PM EDT \.br\ With: TAMMY RUDOLPH, Syed Sinclair\.br\ Where: [facility] Provider Letteron 07-17-2023 Provider Letter July 17, 20[address]W [address] [place] [phone] : 1960 To Whom It May Concern, Please excuse above patient from work for medical appointments. Date: From: 07/18/2023 To: 07/17/2024 Restrictions: None Comments: Patient will need to be excused to get monthly injections and lab work 07/18/2023 through 07/17/2024 Sincerely, Syed Wells M.D, F.A.C.S Faxed to Reymundo Benites at [phone] [facility] Provider Letter July 17, 20[address] AG[address] HECTOR [address] [place] [phone] : 1960 To Whom It May Concern, Please excuse above patient from work. Date of appointment: From: 07/17/2023 To: _ May Return to Work On:07/18/2023 Restrictions: none Comments: Any Questions, feel free to call our office. Sincerely, [facility] [address], [place] [address] [facility] Ambulatory Visit Summaryon 0 06-20-2023 Ambulatory [...] mg Tab) fluticasone nasal (Flonase 0.05 mg/inh [place]) hydrochlorothiazide -lisinopril (hydrochlorothiazid e-lisinopril 12.5 mg-20 mg [...] PM EDT With: Where: [facility] Normal [address] [place] [address] [place] [address]- \.br\ Medications\.br\ What How Much When Instructions\.br\ [...] Unchanged fluticasone nasal (Flonase 0.05 mg/ inh [place]) 2 Sprays Nasal Inhalation Every day\.br\ Unchanged [...] choosing us for your care.\.br\ \.br\ [facility] Provider Letteron 06-20-2023 Provider Letter June 20, 2023 AGUSTIN SANTIAGOBIN [address] [place] [phone] : 1960 To Whom It May Concern, Please excuse above patient from work. Date of appointment: From: _ To: _ May Return to Work On: 06/21/23 Restrictions: none Comments: Any questions, please call our office Sincerely, [facility] [address], [place] [address] Normal [facility] Ambulatory Visit Summaryon 0 05-22-2023 Ambulatory Visit [...] mg Tab) fluticasone nasal (Flonase 0.05 mg/inh [place]) hydrochlorothiazide -lisinopril (hydrochlorothiazid e-lisinopril 12.5 mg-20 mg [...] PM EST With: Where: [facility] Normal [address] [place] [address]- \.br\ Medications\.br\ What How Much When Instructions\.br\ [...] Unchanged fluticasone nasal (Flonase 0.05 mg/ inh [place]) 2 Sprays Nasal Inhalation Every day\.br\ Unchanged [...] for choosing us for your care.\.br\ \.br\ [facility] Medication Consenton 024 Medication Consent [id number] EA#1.00TIFF Normal [facility] Ambulatory Visit Summaryon 0 04-24-2023 Ambulatory Visit Summary AGUSTIN CHEW :1960 Visit Date:04/24/2023 Ambulatory Visit Instructions Your Diagnosis Hypogonadism male BPH with urinary obstruction ED (erectile dysfunction) Nocturia Tests Performed Urnls Dip Stick Auto w/o Microscopy POC [id number] Your Care Team Attending Physician - Syed [...] coated tablet) fluticasone nasal (Flonase 0.05 mg/inh [place]) hydrochlorothiazide -lisinopril (hydrochlorothiazid e-lisinopril 12.5 mg-20 mg [...] PM EST With: Where: [facility] Normal [address] [place] [address] [place] [address]- \.br\ You Need to Schedule the Following Appointments\.br\ Follow Up with TAMMY RUDOLPH, Syed Sinclair, URL When: \.br\ Comments:\.br\ 6 mos w/ T level\.br\ Where:\.br\ [facility] [address]\.br\ [place] [address].br\ [phone]\.br\ Medications\.br\ What How Much When Instructions\.br\ Changed tadalafil (tadalafil 20 mg Tab) 1 Tablets By Mouth As Directed as needed for sexual activity Take one tab prior to sexual activity. Do not exceed 20mg in 24hrs. Pickup at [facility]\.br\ Changed testosterone (Depo-Testosterone 200 mg/ mL intramuscular solution) 350 Milligram Intramuscular Every 4 weeks Pickup at [facility]\.br\ Unchanged finasteride (finasteride 5 mg [...] Unchanged fluticasone nasal (Flonase 0.05 mg/ inh [place]) 2 Sprays Nasal Inhalation Every day Contact [...] if questions or concerns \.br\ Pharmacy Information\.br\ [facility]: [address] [place], [place] [id number] [phone]\.br\ [facility]: [address] [place], [place] [id number] [phone]\.br\ Test Results\.br\ Urnls Dip Stick Auto w/o Microscopy POC 81283 (04/24/2023)\.br\ Bilirubin Urine Dipstick - Negative\.br\ Blood Urine Dipstick - Negative\.br\ Glucose Urine Dipstick - Negative\.br\ Ketones Urine Dipstick - Negative\.br\ Leukocytes Urine Dipstick - Negative\.br\ Nitrite Urine Dipstick - Negative\.br\ Protein Urine Dipstick - Negative\.br\ Specific [place] Urine Dipstick - 1.015\.br\ Urine Appearance Urine [...] diagnosed?\.br\ Your health care provider shane hawley [facility] Patient Educationon 04-24-19 Patient Education Urology [...] Follow these instructions at home: ? Take dauw-gdy-uizfqkp and prescription medicines only as told by [...] 12/03/2020 Document (more content not included)... Normal [facility] Provider Letteron 04-24-2023 Provider Letter April 24, 2023 AG[address] CHEW [address] [place] [phone] : 1960 To Whom It May Concern, Please excuse above patient from work. Date of Appointment: From: 04/24/2023 To: _ May Return to Work On: 04/25/2023 Restrictions: none Comments: Any questions, please call our office Sincerely, [facility] [address], [place] [address] Normal [facility] Urology Office/Clinic Noteon 04-24-2023 Urology Office/Clinic [...] [facility] [address], [place] [address] [phone] Additional Instructions: 6 mos w/ T level [...] mg, Oral, (more content not included)... Normal [facility] Comment on above: Result Comment: Elec tronically Signed By: Syed WELLS MD\.br\Date and Time Signed: 04/24/23 16:53 EST\.br\Electronically Co-Signed By: Radha Hess\.br\Date and Time Co-Signed: 04/24/23 16:50 EST [facility] 04-11-2023 Lab Reports [id number] 73#1.00TIFF Normal [facility] Lab Reports [id number]#1.00TIFF Normal [facility] TESTOSTERONE, TOTALon 2022 Testosterone [Mass/Vol] 287 ng/dL Normal 264-916 [facility] Comment on above: Result Comment: Adul t male reference interval is based on a population of healthy nonobese males (BMI <30) between 19 and 39 years old. Alice et.al. JCEM 2017,102;5419-2299. PMID: [id number]. Performed By: #### T ESTTOT #### [facility] [address] [address] [address] Ying Spencer CBC AUTO DIFFon 02-23-2022 BASO # 0.1 103/ul Normal 0.0-0.1 [facility] Comment on above: Performed By: #### C BC #### [facility] [address] [address] [address] Ying Spencer Basophils/100 WBC (Bld) 0.9 % Normal 0.2-2.0 [facility] Comment on above: Performed By: #### C BC #### [facility] [address] [place] [address] Dr. Ying Spencer EO # 0.3 103/ul Normal 0.0-0.7 [facility] Comment on above: Performed By: #### C BC #### [facility] [address] [place] [address] Dr. Ying Spencer Eosinophils/100 WBC (Bld) 2.7 % Normal 0.9-7.0 [facility] Comment on above: Performed By: #### C BC #### [facility] [address] [place] [address] Dr. Ying Spencer Erythrocyte distribution width (RBC) [Ratio] 17.1 % Critically high 11.0-15.0 [facility] Comment on above: Performed By: #### C BC #### [facility] [address] [place] [address] Dr. Ying Spencer Hematocrit (Bld) [Volume fraction] 30.5 % Critically low 42.0-54.0 [facility] Comment on above: Performed By: #### C BC #### [facility] [address] [place] [address] Dr. Ying Spencer Hemoglobin (Bld) [Mass/Vol] 9.5 g/dL Critically low 14.0-18.0 [facility] Comment on above: Performed By: #### C BC #### [facility] [address] [place] [address] Dr. Ying Spencer IG # 0.04 10e3/ul Critically high 0.00-0.[address] [facility] Comment on above: Performed By: #### C BC #### [facility] [address] [place] [address] Dr. Ying Spencer IG % 0.4 % Normal 0.0-0.5 [facility] Comment on above: Performed By: #### C BC #### [facility] [address] [place] [address] Dr. Ying Spencer LYMPH # 1.7 103/ul Normal 1.2-3.8 [facility] Comment on above: Performed By: #### C BC #### [facility] [address] [address] [address] Ying Spencer Lymphocytes/100 WBC (Bld) 17.3 % Critically low 20.5-60.0 [facility] Comment on above: Performed By: #### C BC #### [facility] [address] [place] [address] Dr. Ying Spencer MANUAL DIFF REQ NO Normal [facility] Comment on above: Performed By: #### C BC #### [facility] [address] [place] [address] Dr. Ying Spencer MCH (RBC) [Entitic mass] 21.9 pg Critically low 25.9-34.0 [facility] Comment on above: Performed By: #### C BC #### [facility] [address] [place] [address] Dr. Ying Spencer MCHC (RBC) [Mass/Vol] 31.1 g/dL Normal 29.9-35.2 [facility] Comment on above: Performed By: #### C BC #### [facility] [address] [place] [address] Dr. Ying Spencer MCV (RBC) [Entitic vol] 70.3 fL Critically low 80.0-94.0 [facility] Comment on above: Performed By: #### C BC #### [facility] [address] [place] [address] Dr. Ying Spencer MONO # 1.0 103/ul Critically high 0.3-0.8 [facility] Comment on above: Performed By: #### C BC #### [facility] [address] [place] [address] Dr. Ying Spencer Monocytes/100 WBC (Bld) 10.8 % Normal 1.7-12.0 [facility] Comment on above: Performed By: #### C BC #### [facility] [address] [place] [address] Dr. Ying Spencer NEUT # 6.5 103/ul Normal 1.4-6.5 [facility] Comment on above: Performed By: #### C BC #### [facility] [address] [address] [address] Ying Spencer Neutrophils/100 WBC (Bld) 67.9 % Normal 43.0-75.0 [facility] Comment on above: Performed By: #### C BC #### [facility] [address] [place] [address] Dr. Ying Spencer Platelet mean volume (Bld) [Entitic vol] 9.2 fL Critically low 9.5-13.5 [facility] Comment on above: Performed By: #### C BC #### [facility] [address] [address] [address] Ying Spencer PLT 399 103/ul Normal 150-450 [facility] Comment on above: Performed By: #### C BC #### [facility] [address] [address] [address] Ying Spencer RBC 4.34 106/ul Critically low 4.70-6.10 [facility] Comment on above: Performed By: #### C BC #### [facility] [address] [place] [address] Dr. Ying Spencer WBC 9.6 103/ul Normal 4.0-11.0 [facility] Comment on above: Performed By: #### C BC #### [facility] [address] [address] [address] Ying Spencer TESTOSTERONE, TOTALon 2021 Testosterone [Mass/Vol] 715 ng/dL Normal 264-916 [facility] Comment on above: Result Comment: Adul t male reference interval is based on a population of healthy nonobese males (BMI <30) between 19 and 39 years old. isaac Jenkins.al. JCEM 2017,102;3728-7998. PMID: [id number]. Performed By: #### T ESTTOT #### [facility] [address] [place] [address] Dr. Ying Spencer LIPID PROFILEon 02-04-2022 CHOL-HDL RATIO NORM SEE BELOW Normal [facility] Comment on above: Result Comment: 3.3 - 4.4 LOW RISK 4.4 - 7.1 AVERAGE RISK 7.1 - 11.0 MODERATE RISK >11.0 HIGH RISK Performed By: #### C MP, LIPID #### [facility] [address] [address] [address] Ying Spencer Cholesterol [Mass/Vol] 141 mg/dL Normal <=200 [facility] Comment on above: Performed By: #### C MP, LIPID #### [facility] [address] [address] [address] Ying Spencer Cholesterol in HDL [Mass/Vol] 50 mg/dL Normal 40-60 [facility] Comment on above: Performed By: #### C MP, LIPID #### [facility] [address] [address] [address] Ying Spencer Cholesterol in LDL [Mass/Vol] 77.2 mg/dL Normal [facility] Comment on above: Performed By: #### C MP, LIPID #### [facility] [address] [address] [address] Ying Spencer Cholesterol.total /Cholesterol in HDL [Mass ratio] 2.8 {ratio} Normal [facility] Comment on above: Performed By: #### C MP, LIPID #### [facility] [address] [address] [address] Ying Spencer HDL NORMAL > or = 60 mg/dl - LOW CARDIOVASCULAR RISK <40 mg/dl - HIGH CARDIOVASCULAR RISK Normal [facility] Comment on above: Performed By: #### C MP, LIPID #### [facility] [address] [address] [address] Ying Spencer LDL CALC NORMAL SEE BELOW Normal [facility] Comment on above: Result Comment: <100 mg/dl OPTIMAL 100 - 129 mg/dl NEAR OR ABOVE OPTIMAL 130 - 159 mg/dl BORDERLINE HIGH 160 - 189 mg/dl HIGH >190 mg/dl VERY HIGH Performed By: #### C MP, LIPID #### [facility] [address] [address] [address] Ying Spencer Triglyceride [Mass/Vol] 69 mg/dL Normal <=150 [facility] Comment on above: Performed By: #### C MP, LIPID #### [facility] [address] [address] [address] Ying Spencer VLDL CALC 13.8 mg/dL Normal [facility] Comment on above: Performed By: #### C MP, LIPID #### [facility] [address] [place] [address] Dr. Ying Spencer PROF 14(COMP METB)on 022 Albumin [Mass/Vol] 4.0 g/dL Normal 3.4-5.0 [facility] Comment on above: Performed By: #### C MP, LIPID #### [facility] [address] [place] [address] Dr. Ying Spencer Albumin/Globulin [Mass ratio] 1.2 {ratio} Normal [facility] Comment on above: Performed By: #### C MP, LIPID #### [facility] [address] [place] [address] Dr. Ying Spencer ALP [Catalytic activity/Vol] 84 U/L Normal 46-116 [facility] Comment on above: Performed By: #### C MP, LIPID #### [facility] [address] [place] [address] Dr. Ying Spencer ALT [Catalytic activity/Vol] 30 U/L Normal 16-63 [facility] Comment on above: Performed By: #### C MP, LIPID #### [facility] [address] [place] [address] Dr. Ying Spencer Anion gap [Moles/Vol] 8.3 mmol/L Normal [facility] Comment on above: Performed By: #### C MP, LIPID #### [facility] [address] [place] [address] Dr. Ying Spencer AST [Catalytic activity/Vol] 23 U/L Normal 15-37 [facility] Comment on above: Performed By: #### C MP, LIPID #### [facility] [address] [place] [address] Dr. Ying Spencer Bilirubin [Mass/Vol] 0.2 mg/dL Normal 0.2-1.0 [facility] Comment on above: Performed By: #### C MP, LIPID #### [facility] [address] [place] [address] Dr. Ying Spencer Calcium [Mass/Vol] 9.0 mg/dL Normal 8.5-10.1 [facility] Comment on above: Performed By: #### C MP, LIPID #### [facility] [address] [place] [address] Dr. Ying Spencer Chloride [Moles/Vol] 98 mmol/L Normal 98-107 [facility] Comment on above: Performed By: #### C MP, LIPID #### [facility] [address] [place] [address] Dr. Ying Spencer CO2 [Moles/Vol] 27.7 mmol/L Normal 21.0-32.0 [facility] Comment on above: Performed By: #### C MP, LIPID #### [facility] [address] [place] [address] Dr. Ying Spencer Creatinine [Mass/Vol] 1.13 mg/dL Normal 0.70-1.30 [facility] Comment on above: Performed By: #### C MP, LIPID #### [facility] [address] [place] [address] Dr. Ying Spencer EGFR-AF CAMEROONIAN >60 Normal >=60 [facility] Comment on above: Performed By: #### C MP, LIPID #### [facility] [address] [place] [address] Dr. Ying Spencer EGFR-NON AF CAMEROONIAN >60 Normal >=60 [facility] Comment on above: Performed By: #### C MP, LIPID #### [facility] [address] [place] [address] Dr. Ying Spencer Globulin (S) [Mass/Vol] 3.3 g/dL Normal [facility] Comment on above: Performed By: #### C MP, LIPID #### [facility] [address] [place] [address] Dr. Ying Spencer Glucose [Mass/Vol] 93 mg/dL Normal 74-106 [facility] Comment on above: Performed By: #### C MP, LIPID #### [facility] [address] [place] [address] Dr. Ying Spencer Potassium [Moles/Vol] 4.0 mmol/L Normal 3.5-5.1 [facility] Comment on above: Performed By: #### C MP, LIPID #### [facility] [address] [address] [address] Ying Spencer Protein [Mass/Vol] 7.3 g/dL Normal 6.4-8.2 [facility] Comment on above: Performed By: #### C MP, LIPID #### [facility] [address] [place] [address] Dr. Ying Spencer Sodium [Moles/Vol] 130 mmol/L Critically low 136-145 [facility] Comment on above: Performed By: #### C MP, LIPID #### [facility] [address] [place] [address] Dr. Ying Spencer Urea nitrogen [Mass/Vol] 17.0 mg/dL Normal 7.0-18.0 [facility] Comment on above: Performed By: #### C MP, LIPID #### [facility] [address] [place] [address] Dr. Ying Spencer Urea nitrogen/Creatini ne [Mass ratio] 15.0 mg/mg Normal [facility] Comment on above: Performed By: #### C MP, LIPID #### [facility] [address] [place] [address] Dr. Ying Spencer TESTOSTERONE, TOTALon 2021 Testosterone [Mass/Vol] 615 ng/dL Normal 264-916 [facility] Comment on above: Result Comment: Adul t male reference interval is based on a population of healthy nonobese males (BMI <30) between 19 and 39 years old. Alice et.al. JCEM 2017,102;7327-7952. PMID: [id number]. Performed By: #### T ESTTOT #### [facility] [address] [place], [place] [id number] Dr. Ying Spencer BASIC METABOLIC PANELon BUN/CREATININE RATIO NOT APPLICABLE Normal 6-22 [facility] Comment on above: Order Comment: FASTI NG: UNKNOWN Performed By: #### 1 0165 #### [facility] [address] [facility], [address] [place] [address] [employer] Installer: Saurabh Noriega MD Calcium [Mass/Vol] 9.3 mg/dL Normal 8.6-10.3 [facility] Comment on above: Order Comment: FASTI NG: UNKNOWN Performed By: #### 1 0165 #### [facility] [address] [address] [employer] Installer: Saurabh Noriega MD Chloride [Moles/Vol] 97 mmol/L Low 98-110 [facility] Comment on above: Order Comment: FASTI NG: UNKNOWN Performed By: #### 1 0165 #### [facility] [address] [address] [employer] Installer: Saurabh Noriega MD CO2 [Moles/Vol] 25 mmol/L Normal 20-32 [facility] Comment on above: Order Comment: FASTI NG: UNKNOWN Performed By: #### 1 0165 #### [facility] [address] [address] [employer] Installer: Saurabh Noriega MD Creatinine [Mass/Vol] 1.07 mg/dL Normal 0.70-1.33 [facility] Comment on above: Order Comment: FASTI NG: UNKNOWN Result Comment: For patients >49 years of age, the reference limit for Creatinine is approximately 13% higher for people identified as -Vietnamese. Performed By: #### 1 0165 #### [facility] [address] [address] [employer] Installer: Saurabh Noriega MD eGFR NON-AFR. CAMEROONIAN 76 mL/min/1.73m2 Normal > OR = 60 [facility] Comment on above: Order Comment: FASTI NG: UNKNOWN Performed By: #### 1 0165 #### [facility] [address] [address] [employer] Installer: Saurabh Noriega MD GFR/1.73 sq M.predicted among blacks MDRD (S/P/Bld) [Vol rate/Area] 88 mL/min/{1.73_m2} Normal > OR = 60 [facility] Comment on above: Order Comment: FASTI NG: UNKNOWN Performed By: #### 1 0165 #### [facility] [address] [address] [employer] Installer: Saurabh Noriega MD Glucose [Mass/Vol] 89 mg/dL Normal 65-99 [facility] Comment on above: Order Comment: FASTI NG: UNKNOWN Result Comment: Fasting reference interval Performed By: #### 1 0165 #### [facility] [address] [address] [employer] Installer: Saurabh Noriega MD Potassium [Moles/Vol] 4.3 mmol/L Normal 3.5-5.3 [facility] Comment on above: Order Comment: FASTI NG: UNKNOWN Performed By: #### 1 0165 #### [facility] [address] [place] [address] [employer] Installer: Saurabh Noriega MD Sodium [Moles/Vol] 131 mmol/L Low 135-146 [facility] Comment on above: Order Comment: FASTI NG: UNKNOWN Performed By: #### 1 0165 #### [facility] [address] [place] [address] [employer] Installer: Saurabh Noriega MD Urea nitrogen [Mass/Vol] 17 mg/dL Normal 7-25 [facility] Comment on above: Order Comment: FASTI NG: UNKNOWN Performed By: #### 1 0165 #### [facility] [address] [address] [employer] Installer: Saurabh Noriega MD [facility]OL[facility] 01-01-2021 Albumin [Mass/Vol] 4.5 g/dL Normal 3.6-5.1 [facility] Comment on above: Performed By: #### 1 0231, 5399, 2150 #### [facility] of [address], [address] [place] [address] [employer] Installer: Saurabh Noriega MD Albumin/Globulin [Mass ratio] 1.9 {ratio} Normal 1.0-2.5 [facility] Comment on above: Performed By: #### 1 0231, 5363, 7600 #### [facility] of [address], [address] [place] [address] [employer] Installer: Saurabh Noriega MD ALP [Catalytic activity/Vol] 73 U/L Normal 35-144 [facility] Comment on above: Performed By: #### 1 0231, 5363, 7600 #### [facility] [address], [address] [place] [address] [employer] Installer: Saurabh Noriega MD ALT [Catalytic activity/Vol] 20 U/L Normal 9-46 [facility] Comment on above: Performed By: #### 1 0231, 5363, 7600 #### [facility] [address], [address] [place] [address] [employer] Installer: Saurabh Noriega MD AST [Catalytic activity/Vol] 26 U/L Normal 10-35 [facility] Comment on above: Performed By: #### 1 0231, 5363, 7600 #### [facility] [address], [address] [place] [address] [employer] Installer: Saurabh Noriega MD Bilirubin [Mass/Vol] 0.3 mg/dL Normal 0.2-1.2 [facility] Comment on above: Performed By: #### 1 0231, 5363, 7600 #### [facility] [address], [address] [place] [address] [employer] Installer: Saurabh Noriega MD BUN/CREATININE RATIO NOT APPLICABLE Normal 6-22 [facility] Comment on above: Performed By: #### 1 0231, 5363, 7600 #### [facility] [address], [address] [place] [address] [employer] Installer: Saurabh Noriega MD Calcium [Mass/Vol] 9.6 mg/dL Normal 8.6-10.3 [facility] Comment on above: Performed By: #### 1 0231, 5363, 7600 #### [facility] [address], [address] [place] [address] [employer] Installer: Saurabh Noriega MD Chloride [Moles/Vol] 98 mmol/L Normal 98-110 [facility] Comment on above: Performed By: #### 1 0231, 5363, 7600 #### [facility] [address] [place] [address] [employer] Installer: Saurabh Noriega MD CO2 [Moles/Vol] 25 mmol/L Normal 20-32 [facility] Comment on above: Performed By: #### 1 0231, 5363, 7600 #### [facility] [address] [place] [address] [employer] Installer: Saurabh Noriega MD Creatinine [Mass/Vol] 1.14 mg/dL Normal 0.70-1.33 [facility] Comment on above: Result Comment: For patients >49 years of age, the reference limit for Creatinine is approximately 13% higher for people identified as -Vietnamese. Performed By: #### 1 230, 5363, 7600 #### [facility] [address] [address] [employer] Installer: Saurabh Noriega MD eGFR NON-AFR. CAMEROONIAN 70 mL/min/1.73m2 Normal > OR = 60 [facility] Comment on above: Performed By: #### 1 230, 5363, 7600 #### [facility] [address] [address] [employer] Installer: Saurabh Noriega MD GFR/1.73 sq M.predicted among blacks MDRD (S/P/Bld) [Vol rate/Area] 81 mL/min/{1.73_m2} Normal > OR = 60 [facility] Comment on above: Performed By: #### 1 0231, 5363, 7600 #### [facility] [address] [place] [address] [employer] Installer: Saurabh Noriega MD Globulin (S) [Mass/Vol] 2.4 g/dL Normal 1.9-3.7 [facility] Comment on above: Performed By: #### 1 0231, 5363, 7600 #### [facility] [address] [place] [address] [employer] Installer: Saurabh Noriega MD Glucose [Mass/Vol] 82 mg/dL Normal 65-99 [facility] Comment on above: Result Comment: Fasting reference interval Performed By: #### 1 0231, 5363, 7600 #### [facility] of [address], [address] [place] [address] [employer] Installer: Saurabh Noriega MD Potassium [Moles/Vol] 4.6 mmol/L Normal 3.5-5.3 [facility] Comment on above: Performed By: #### 1 0231, 5363, 7600 #### [facility] [address] [place] [address] [employer] Installer: Saurabh Noriega MD Protein [Mass/Vol] 6.9 g/dL Normal 6.1-8.1 [facility] Comment on above: Performed By: #### 1 0231, 5363, 7600 #### [facility] [address], [address] [place] [address] [employer] Installer: Saurabh Noriega MD Sodium [Moles/Vol] 132 mmol/L Low 135-146 [facility] Comment on above: Performed By: #### 1 0231, 5363, 7600 #### [facility] [address] [place] [address] [employer] Installer: Saurabh Noriega MD Urea nitrogen [Mass/Vol] 20 mg/dL Normal 7-25 [facility] Comment on above: Performed By: #### 1 0231, 5363, 7600 #### [facility] of [address], [address] [place] [address] [employer] Installer: Saurabh Noriega MD LIPID PANEL, [facility] 12-16 Cholesterol [Mass/Vol] 156 mg/dL Normal <200 [facility] Comment on above: Order Comment: FASTI NG:YES FASTING: YES Performed By: #### 1 0231, 5363, 7600 #### [facility] of [address], [address] [place] [address] [employer] Installer: Saurabh Noriega MD Cholesterol in HDL [Mass/Vol] 58 mg/dL Normal > OR = 40 [facility] Comment on above: Order Comment: FASTI NG:YES FASTING: YES Performed By: #### 1 0231, 5331, 1210 #### [facility] [address], [address] [place] [address] [employer] Installer: Saurabh Noriega MD Cholesterol in LDL [Mass/Vol] [...] equation in the estimation of LDL-C. Irineo SS et al. JAIME. 2013;310(19): 9245-3032 (http://education.Birdi.TransGenRx/faq/HWC804) Performed By: #### 1 0231, 5364, 9510 #### [facility] [address] [place] [address] [employer] Installer: Saurabh Noriega MD Cholesterol.total /Cholesterol in HDL [Mass ratio] 2.7 {ratio} Normal <5.0 [facility] Comment on above: Order Comment: FASTI NG:YES FASTING: YES Performed By: #### 1 0231, 5363, 4160 #### [facility] [address], [address] [place] [address] [employer] Installer: Saurabh Noriega MD NON HDL CHOLESTEROL 98 mg/dL (calc) Normal <130 [facility] Comment on above: Order Comment: FASTI NG:YES FASTING: YES Result Comment: For patients with diabetes plus 1 major ASCVD risk factor, treating to a non-HDL-C goal of <100 mg/dL (LDL-C of <70 mg/dL) is considered a therapeutic option. Performed By: #### 1 0231, 5320, 5080 #### [facility] [address], [address] [place] [address] [employer] Installer: Saurabh Noriega MD Triglyceride [Mass/Vol] 103 mg/dL Normal <150 [facility] Comment on above: Order Comment: FASTI NG:YES FASTING: YES Performed By: #### 1 0231, 5363, 7600 #### [facility] [address] [place] [address], [address] [place] [address] [employer] Installer: Saurabh Noriega MD PSA, TOTALon 01-01-2021 PSA, TOTAL 0.07 ng/mL Normal < OR = 4.00 [facility] Comment on above: Result Comment: The total PSA value from this assay system is standardized against the WHO standard. The test result will be approximately 20% lower when compared to the equimolar-standardized total PSA (Italo Leila). Comparison of serial PSA results should be interpreted with this fact in mind. This test was performed using the Siemens chemiluminescent method. Values obtained from different assay methods cannot be used interchangeably. PSA levels, regardless of value, should not be interpreted as absolute evidence of the presence or absence of disease. Performed By: #### 1 0231, 5344, 9360 #### [facility] [address], [address] [place] [id number] [employer] Installer: Saurabh Noriega MD Vital Signs Date Time Vital Sign Value Performing Clinician Facility 10-09-2023 15:43-0400 Blood Pressure Location Syed [facility] 10-09-2023 15:43-0400 Body temperature 98.6 [degF] Syed [facility] 10-09-2023 15:43-0400 Diastolic blood pressure 88 mm[Hg] Syed [facility] 10-09-2023 15:43-0400 Heart rate 71 /min Syed [facility] 10-09-2023 15:43-0400 Respiratory rate 16 /min Syed [facility] 10-09-2023 15:43-0400 Systolic blood pressure 129 mm[Hg] Syed [facility] 06-01-2022 11:40-0500 Body height 175.26 cm Rani Barbermond Other [facility] Other 06-01-2022 11:40-0500 Body mass index (BMI) [Ratio] 36.18 kg/m2 Rani Philly Other [facility] Other 06-01-2022 11:40-0500 Body temperature 99.3 [degF] Rani Barbermond Other [facility] Other 06-01-2022 11:40-0500 Body weight 111.13 kg Rani Fraga Other [facility] Other 06-01-2022 11:40-0500 Respiratory rate 18 /min Rani Barbermond Other [facility] Other 06-01-2022 11:40-0500 SaO2% (BldA) [Mass fraction] 94 % Rani Philly Other [facility] Other 09-10-2021 08:35-0400 Diastolic blood pressure 86 mm[Hg] Syed [facility] 09-10-2021 08:35-0400 Mean blood pressure 100 mm[Hg] Syed [facility] 09-10-2021 08:35-0400 Systolic blood pressure 129 mm[Hg] [facility] 09-10-2021 08:10-0400 Blood Pressure Location Syed [facility] 09-10-2021 08:10-0400 Diastolic blood pressure 88 mm[Hg] [facility] 09-10-2021 08:10-0400 Heart rate 78 /min [facility] 09-10-2021 08:10-0400 Respiratory rate 16 /min Syed [facility] 09-10-2021 08:10-0400 Systolic blood pressure 159 mm[Hg] ySed [facility] Encounters Encounter Date Encounter Type Care Provider Facility Start: 03-25-2024 End: 03-25-2024 Refill Laith G Furlong DO Work Phone: [facility] Start: 03-22-2024 ambulatory Syed Damoni ty:[facility] Start: 03-11-2024 End: 03-11-2024 Refill Laith G Furlong DO Work Phone: [facility] Comment on above: Gastroesophageal ref lux disease without esophagitis Start: 03-04-2024 End: 03-04-2024 Refill Laith G Furlong DO Work Phone: [facility] Start: 01-29-2024 End: 01-29-2024 Refill Laith Dickerson DO Work Phone: [facility] Start: 10-09-2023 End: 10-09-2023 ambulatory Syedterri [facility] Facility:[facility] Start: 10-09-2023 End: 10-09-2023 Patient encounter procedure Syed Sinclair [facility] Start: 09-12-2023 ambulatory Syed R TAMMY Facili ty:[facility] [place] Start: 08-14-2023 ambulatory Syed R TAMMY Facili ty:[facility] Start: 07-17-2023 End: 07-17-2023 ambulatory Syed R WELLS Facility:[facility] [place] Start: 07-17-2023 End: 07-17-2023 Patient encounter procedure [facility]ed Sinclair [facility] Start: 06-20-2023 End: 06-20-2023 ambulatory Syed R WELLS Facility:[facility] Start: 05-22-2023 End: 05-22-2023 ambulatory Syed WELLS Facility:[facility] [place] Start: 05-22-2023 End: 05-22-2023 Patient encounter procedure Syed Sinclair [facility] Start: 05-04-2023 Refill Laith dewey DO Work Phone: [facility] Start: 04-24-2023 End: 04-24-2023 ambulatory Syedterri [facility] Facility:[facility] Start: 03-20-2023 End: 03-20-2023 Patient encounter procedure Syed R [facility] Start: 02-20-2023 End: 02-20-2023 Patient encounter [facility] Start: 12-26-2022 End: 12-26-2022 Patient encounter procedure [facility] Start: 11-28-2022 End: 11-28-2022 Patient encounter procedure Syed [facility] Start: 10-31-2022 End: 10-31-2022 Patient encounter procedure Syed [facility] Start: 10-03-2022 End: 10-03-2022 Patient encounter procedure Syed [facility] Start: 08-22-2022 End: 08-23-[address] SYED WELLS . Facility: Start: 08-08-2022 End: 08-08-2022 Patient encounter procedure Syed [facility] Start: 07-11-2022 End: 07-11-2022 Patient encounter procedure Syed [facility] Start: 06-13-2022 End: 06-13-2022 Patient encounter procedure Syed WELLS [facility] [place] Start: 06-01-2022 End: 06-01-2022 ambulatory Rani Philly Other [place] [employer] Other Start: 06-01-2022 Office outpatient vi sit 15 minutes Rani Philly [facility] [place] Start: 05-16-2022 End: 05-16-2022 Patient encounter procedure Syed WELLS [facility] Start: 04-19-2022 End: 04-19-2022 Patient encounter procedure CARLINE BROWN [facility] Start: 03-21-2022 End: 03-21-2022 Patient encounter procedure Syed WELLS [facility] Start: 02-23-2022 End: 02-24-[address] SYED WELLS . Facility:[facility] Start: 02-21-2022 End: 02-21-2022 Patient encounter procedure Syed WELLS [facility] Start: 02-07-2022 End: 02-08-[address] SYED WELLS . Facility:[facility] Start: 02-04-2022 End: 02-05-[address] LAITH DICKERSON Facility:[facility] Start: 01-24-2022 End: 01-24-2022 Patient encounter procedure Syed WELLS [facility] Start: 12-24-2021 End: 12-24-2021 Patient encounter procedure Syed WELLS [facility] Start: 10-29-2021 End: 10-29-2021 Patient encounter procedure Syedterri WELLS [facility] Start: 10-04-2021 End: 10-04-2021 Patient encounter procedure Syed WELLS [facility] Start: 09-10-2021 End: 09-10-2021 Patient encounter procedure Syed WELLS [facility] Start: 08-31-2021 End: 09-01-[address] SYED WELLS . Facility: Procedures Date Procedure Procedure Detail Performing Clinician Start: 03-13-2023 Adult depression scr eening assessment Laithalyce Bessrebecca DO Work Phone: Start: 02-04-[address] RAUL WELLS . Comment on above: Result Comment: Prev iously reported as: <4.00 On 02/04/2022 16:57 By CV2 Performed By: #### [facility] #### [facility] [address] [place] [address] Dr. Ying Spencer Start: 03-29-2019 Excision of cyst Raul WELLS Comment on above: EXCISION CYST RIGHT UPPER BACK Start: 03-08-2019 Arthroscopy of knee Cathie WELLS Comment on above: right Start: 04-17-2018 Arthroscopy of knee Cathie WELLS Start: 08-16-2016 Cystoscopy Syed BYRNE Start: 03-17-2015 Repair of umbilical hernia Syed WELLS Start: 11-19-2013 Colonoscopy Laith fernandez Work Phone: Appendectomy Syed WELLS Colonoscopy Syed WELLS lacerated tendon lef t wrist Syed WELLS Urodynamic studies Syed Moy [place] Plan of Treatment Date Care Activity Detail Author Start: 04-04-2024 End: 04-04-2024 Patient encounter procedure 04/04/2024 3:45 PM EST Office Visit [facility] [address] [place] [address] Laith Dickerson DO [address], [place] [address] [facility] Start: 03-13-2024 Adult BMI Screening Adult BMI Screen ing [facility] Start: 03-13-2024 Depression Screening Depression Scre ening [facility] Start: 03-13-2024 Tobacco Screening Tobacco Screening [facility] Start: 12-17-2023 COVID-19 Vaccine ( season) COVID-19 Vaccine ( season) [facility] Start: 12-17-2023 COVID-19 Vaccine ( season) COVID-19 Vaccine ( season) [facility] Start: 12-17-2023 Influenza vaccination Influenza Vacc ine [facility] Start: 11-20-2023 Screening for malign ant neoplasm of colon Colonoscopy [facility] Start: 12-16-2022 COVID-19 Vaccine ( season) COVID-19 Vaccine ( season) [facility] Start: 12-16-2022 Influenza vaccination Influenza Vacc ine [facility] Start: 1980 DTaP,Tdap and Td Vaccines (1 - Tdap) DTaP,Tdap and Td Vaccines (1 - Tdap) [facility] Start: 09-28-1979 Adult BMI Follow Up Plan Adult BMI Follow Up Plan [facility] Immunizations Immunization Date Immunization Notes Care Provider Fa cility 11-07-2022 influenza virus vaccine, unspecified formulation [employer] [facility] 02-21-2022 influenza, injectabl e, quadrivalent, preservative free Laith Furlong DO Work Phone: [facility] 03-10-2021 SARS-CoV-2 (COVID-19 ) mRNA BNT-162b2 vax [employer] [facility] 07-21-2020 SARS-CoV-2 (COVID-19 ) mRNA BNT-162b2 vax [employer] [facility] 06-30-2020 SARS-CoV-2 (COVID-19 ) mRNA BNT-162b2 vax [employer] [facility] 04-17-2020 SARS-CoV-2 (COVID-19 ) mRNA BNT-162b2 vax [employer] [facility] Comment on above: Result Comment: pt h as had 3 shots to date but does not know the date 02-12-2020 zoster vaccine recombinant [employer] [facility] 12-13-2019 influenza virus vaccine, unspecified formulation [employer] [facility] 12-13-2019 influenza, injectabl e, quadrivalent, preservative free Laith Furlong DO Work Phone: [facility] [employer] [facility] 12-13-2019 zoster vaccine recombinant [employer] [facility] 02-04-2019 influenza virus vaccine, unspecified formulation [employer] [facility] 02-04-2019 influenza, injectabl e, quadrivalent, preservative free Laith Furlong DO Work Phone: [facility] 01-27-2018 influenza virus vaccine, unspecified formulation [facility] 01-27-2018 influenza, seasonal, injectable, preservative free Laith Furlong DO Work Phone: [facility] 01-20-2017 influenza virus vaccine, unspecified formulation [facility] 01-20-2017 influenza, seasonal, injectable, preservative free Laith Furlong DO Work Phone: [facility] 01-13-2016 influenza virus vaccine, unspecified formulation [facility] 01-13-2016 influenza, seasonal, injectable, preservative free Laith Furlong DO Work Phone: [facility] flu vacc [id number] 6 mos up,PF, (FLUARIX QUAD [id number], PF,) 60 mcg (15 mcg x 4)/0.5 mL syringe Laith Furlong DO Work Phone: [facility] Payers Date Payer Category Payer Commercial Managed C are - [employer] [id number] 2021 Unknown [employer] M [place] SU[employer] [id number] 2021-Present [phone] [address] [place] [address] [id number] 1961 Unknown [id number] [id number]. 593 1961 Unknown [id number] 2.16.840.1.593575.3.579.2. 593 1961 Unknown [id number] 2.16.840.1.218874.3.579.2. 593 1961 Unknown [id number] 2.16.840.1.682857.3.579.2. 593 1961 Unknown [id number] 2.16.840.1.695371.3.579.2. 593 1961 Unknown [id number] 2.16.840.1.838091.3.579.2. 727 1961 Unknown [id number] 2.16.840.1.543982.3.579.2. 727 1961 Unknown [id number] 2.16.840.1.100369.3.579.2. 727 1961 Unknown [id number] 2.16.840.1.009859.3.579.2. 727 1961 Unknown [id number] 2.16.840.1.141815.3.579.2. 727 1961 Unknown [id number] 2.16.840.1.874502.3.579.2. 727 1961 Unknown [id number] 2.16.840.1.432612.3.579.2. 727 1961 Unknown [id number] 2.16.840.1.346931.3.579.2. 727 1959 Unknown [id number] Social History Date Type Detail Facility Start: 09-10-2021 End: 10-09-2023 Tobacco smoking status Ex-smoker (finding) [facility] Start: 03-13-2023 Sex Assigned At Male [facility] Start: 03-08-2022 Tobacco smoking stat [facility] Never smoked tobacco [facility] Start: 03-08-2022 Tobacco use and exposure Smoke less tobacco non-user [facility] Start: 03-13-2023 Alcohol intake Current drinke r of alcohol (finding) [facility] Start: 03-13-2023 Alcohol intake [facility] Has the [employer], or [employer] threatened to shut off services in your home in past 12Mo No [facility] Do you belong to any clubs or organizations such as restorationist groups, unions, fraternal or athletic groups, or school groups? Yes [facility] Are you now , , , , never or living with a partner? [facility] How often to you hav e a drink containing alcohol? 2-3 time sa week [facility] How many standard dr inks containing alcohol do you have on a typical day? 10 or more [facility] How often do you hav e 6 or more drinks on 1 occasion? Weekly [facility] How hard is it for y ou to pay for the very basics like food, housing, medical care, and heating Not hard at all [facility] Do you feel stress - tense, restless, nervous, or anxious, or unable to sleep at night because your mind is troubled all the time - these days [OSQ] Not at all [facility] Start: 1960 Sex Assigned At Not on file P [facility] Start: 11-20-2014 Sex Male (finding) [facility] Functional Status Date Assessment Result Facility 10-09-2023 Functional Status N/A [facility] 02-21-2022 Functional Status N/A [facility] Clinical Notes 09-10-2021 to 01-29-2024 Telephone Encounter - Laith Dickerson, - 01/29/2024 2:13 AM EDTTelephone Encounter - Laith G DO Tuan - 01/29/2024 2:13 AM EDT Note Date & Type Note Facility 01-29-2024 Miscellaneous Notes Rx sent in. He is overdue for an appointment. He was last seen for a wellness on March 13 last year. Might as well make it a wellness and schedule it after that date documented in this encounter [facility] 01-29-2024 Telephone encounter Note Rx sent in. He is overdue for an appointment. He was last seen for a wellness on March 13 last . Might as well make it a wellness and schedule it after that date [facility] 10-09-2023 Hospital Discharg e instructions Patient Education [...] therapy. Follow these instructions at home: Take hpmp-bpx-tqrdhpb and prescription medicines only as told by [...] provider. Document Revised: 12/03/2020 Document Reviewed: 12/03/2020 Coverity Patient Education 2022 [employer] [place]. Follow Up Care 04/24/2023 15:34:21 With:TAMMY RUDOLPH, Syed Sinclair, URL Address: [facility] [address] [place] [address]- [phone] When: Unknown [facility] 06-01-2022 Evaluation note Encounter Date Diagnosis Assessment Notes May, Bronchitis (ICD-10 - J40) Acute bronchitis material was printed Drink plenty fluids, get plenty of rest. Continue your mzmc-uwl-bhshp er cold medications. Take the prednisone as prescribed until gone. Use the albuterol inhaler as prescribed as needed for cough or shortness of breath. Follow-up with your family physician if no improvement in 2 to 3 days. Off work today and tomorrow. [employer] Other 11-07-2022 Hospital Discharge instructions Patient Education [...] Follow these instructions at home: Medicines Take vdls-ojt-qhqmzqa and prescription medicines only as told by [...] 03/31/2001 Document Revised: 03/16/2018 Document Reviewed: 04/19/2017 Coverity Patient Education 2020 [employer] [place]. Follow Up Care 01/24/2022 15:34:27 With:TAMMY RUDOLPH, Syed Sinclair, URL Address: [facility] [address] [place] [address]- [phone] When:08/21/2022 [facility] 05-27-2022 Hospital Discharge instructions Patient Education 09/10/2021 [...] urethra. Follow these instructions at home: Take htak-gud-xfaxshi and prescription medicines only as told by [...] 04/03/2006 Document Revised: 02/26/2019 Document Reviewed: 05/08/2017 Coverity Patient Education 2020 [employer] [place]. Follow Up Care 08/16/2021 14:50:02 With:TAMMY RUDOLPH, Syed Sinclair, URL Address: [facility] [address] [place] [address]- When:03/13/2022 [facility] + Plan note Future Appointments Appointment Date:10/04/2021 03:00:00 PM Scheduled Provider: Location:[facility] Appointment Type:URO Nurse Visit Diagnostic Tests Pending * Testosterone Level Total 09/10/21 Future Scheduled Tests Laboratory* CBC w/ Auto Diff 09/10/21 [facility] + Plan note Future Appointments Appointment Date:11/01/2021 03:00:00 PM Scheduled Provider: Location:[facility] Appointment Type:URO Nurse Visit Future Scheduled Tests Laboratory* CBC w/ Auto Diff 09/10/21 [facility] evaluation + Plan note Future Appointments Appointment Date:11/26/2021 08:00:00 AM Scheduled Provider: Location:[facility] Appointment Type:URO Nurse Visit Future Scheduled Tests Laboratory* CBC w/ Auto Diff 09/10/21 [facility] evaluation + Plan note Future Appointments Appointment Date:01/24/2022 02:45:00 PM Scheduled Provider: Location:[facility] Appointment Type:URO Nurse Visit Future Scheduled Tests Laboratory* CBC w/ Auto Diff 09/10/21 [facility] evaluation + Plan note Future Appointments Appointment Date:02/21/2022 03:30:00 PM Scheduled Provider:Syed WELLS MD Location:[facility] Appointment Type:URO Office Visit Diagnostic Tests Pending * Testosterone Level Total 01/24/22 Future Scheduled Tests Laboratory* CBC w/ Auto Diff 09/10/21 [facility] evaluation + Plan note Future Appointments Appointment Date:03/21/2022 02:45:00 PM Scheduled Provider: Location:[facility] [place] Appointment Type:URO Nurse Visit Diagnostic Tests Pending * CBC w/ Auto Diff 02/21/22 Future Scheduled Tests Laboratory* CBC w/ Auto Diff 09/10/21 [facility] evaluation + Plan note Future Appointments Appointment Date:04/19/2022 02:45:00 PM Scheduled Provider: Location:[facility] Appointment Type:URO Nurse Visit Future Scheduled Tests Laboratory* CBC w/ Auto Diff 09/10/21 [facility] evaluation + Plan note Future Appointments Appointment Date:05/16/2022 02:45:00 PM Scheduled Provider: Location:[facility] [place] Appointment Type:URO Nurse Visit Future Scheduled Tests Laboratory* CBC w/ Auto Diff 09/10/21 [facility] evaluation + Plan note Future Appointments Appointment Date:06/13/2022 02:45:00 PM Scheduled Provider: Location:[facility] [place] Appointment Type:URO Nurse Visit Future Scheduled Tests Laboratory* CBC w/ Auto Diff 09/10/21 [facility] evaluation + Plan note Future Appointments Appointment Date:07/11/2022 02:45:00 PM Scheduled Provider: Location:[facility] [place] Appointment Type:URO Nurse Visit Future Scheduled Tests Laboratory* CBC w/ Auto Diff 09/10/21 [facility] evaluation + Plan note Future Appointments Appointment Date:08/08/2022 02:45:00 PM Scheduled Provider: Location:[facility] [place] Appointment Type:URO Nurse Visit Future Scheduled Tests Laboratory* CBC w/ Auto Diff 09/10/21 [facility] evaluation + Plan note Future Appointments Appointment Date:09/05/2022 02:30:00 PM Scheduled Provider:Syed WELLS MD Location:[facility] Appointment Type:URO Office Visit Future Scheduled Tests Laboratory* CBC w/ Auto Diff 09/10/21 [facility] evaluation + Plan note Future Appointments Appointment Date:10/31/2022 02:45:00 PM Scheduled Provider: Location:[facility] Appointment Type:URO Nurse Visit [facility] evaluation + Plan note Future Appointments Appointment Date:11/28/2022 02:45:00 PM Scheduled Provider: Location:[facility] Appointment Type:URO Nurse Visit [facility] evaluation + Plan note Future Appointments Appointment Date:12/26/2022 02:45:00 PM Scheduled Provider: Location:[facility] Appointment Type:URO Nurse Visit [facility] evaluation + Plan note Future Appointments Appointment Date:01/23/2023 02:30:00 PM Scheduled Provider: Location:[facility] Appointment Type:URO Nurse Visit [facility] evaluation + Plan note Future Appointments Appointment Date:03/20/2023 02:30:00 PM Scheduled Provider: Location:[facility] Appointment Type:URO Nurse Visit Appointment Date:04/21/2023 08:45:00 AM Scheduled Provider:[facility] Office Visit [facility] evaluation + Plan note Future Appointments Appointment Date:04/24/2023 03:00:00 PM Scheduled Provider:Syed WELLS MD Location:[facility] Appointment Type:URO Office Visit [facility] evaluation + Plan note Future Appointments Appointment Date:06/19/2023 02:45:00 PM Scheduled Provider: Location:[facility] Appointment Type:URO Nurse Visit Appointment Date:10/13/2023 08:00:00 AM Scheduled Provider:Syed WELLS MD Location:[facility] Appointment Type:URO Office Visit [facility] evaluation + Plan note Future Appointments Appointment Date:08/14/2023 03:00:00 PM Scheduled Provider: Location:[facility] Appointment Type:URO Nurse Visit Appointment Date:09/12/2023 03:00:00 PM Scheduled Provider: Location:[facility] Appointment Type:URO Nurse Visit Appointment Date:10/09/2023 03:00:00 PM Scheduled Provider:ySed WELLS MD Location:[facility] Appointment Type:URO Office Visit [facility] evaluation + Plan note Future Appointments Appointment Date:03/22/2024 08:00:00 AM Scheduled Provider:Syed WELLS MD Location:[facility] Appointment Type:URO Office Visit Diagnostic Tests Pending * Testosterone Level Total 10/09/23 * PSA Total 10/09/23 [facility] evaloczgzr note* Diagnosis Gastroesophageal reflux disease without esophagitis Esophageal reflux [facility] N[facility]ative - Reported* Type Description Date Medical History Anemic Medical History HTN Medical History ED Medical History GERD Medical History Enlarged Prostate Medical History Diverticulitis Surgical History Appendectomy 1979 Surgical History colonoscopy Surgical History hernia repair Surgical History knee arthroscopy right Hospitalization History See past surgical hx [employer] Other Hospital course Narrative No data available for this section [facility] Hospital Discharge instructions No data available for this section [facility] InstructionsNot on filedocumented in this encounter [facility] filed[facility]ed in this [facility] No data available for this section [facility] Summary Purpose Family History No Family History [...] CREATED AUTHOR AUTHOR'S ORGANIZ ATION 08/26/2022 [facility] [place] [facility] DATE CREATED AUTHOR AUTHOR'S ORGANIZ ATION 03/22/2024 [facility] Care Team (unrecognized sect ion and content) Grounds Maintenance Worker Relationship Specialty Start Date End Date Laith Dickerson DO [address] [place] [address] PCP - General Family Medicine 02/02/22 Grounds Maintenance Worker Relationship Specialty Start Date End Date Laith Dickerson DO [address], [place] [address] PCP - General Family Medicine 02/02/22 Grounds Maintenance Worker Relationship Specialty Start Date End Date Laith Dickerson DO [address], [place] [address] PCP - General Family Medicine 02/02/22 REASON [...] BE BASED ON THE PRIMARY CLINICAL RECORDS. [employer] [facility]. provides no warranty or guarantee of the accuracy or completeness of information in this document.
--- NOTE | 2024-04-04 17:39 | ED_ITS ---
HPI HPI - General Adult General Chief complaint: Skin/Abscess/Foreign Body Stated complaint: laceration Time Seen by Provider: 04/04/24 17:31 Source: patient Mode of arrival: walk-in History of Present Illness HPI narrative: Patient is a 63-year-old male who presents to the emergency department for a skin avulsion from the distal tip of his left middle finger at work. He states that the distal tip of the finger was avulsed, it was bandaged at work about 5 hours ago but it continues to bleed so it was recommended he come to the ER. He does not take blood thinners. Unknown last tetanus shot. Related Data Allergies Allergy/AdvReac Type Severity Reaction Status Date / Time levofloxacin (From [employer]) Allergy Severe Unknown Verified 04/04/24 17:35 Opioid HPI Opioid Management Most Recent Opioid Data: No Data to Display Review of Systems ROS Constitutional Denies: fever or chills Ears, nose, mouth, and throat Denies: throat pain or nasal congestion Cardiovascular Denies: chest pain Respiratory Denies: shortness of breath Gastrointestinal Denies: nausea or vomiting Musculoskeletal Denies: back pain or neck pain Integumentary/Breast Denies: rash Neurological Denies: numbness in extremities or weakness in extremities Hematologic/Lymphatic Denies: easy bruising or easy bleeding PFSH PFSH Social History Little interest or pleasure in doing things: not at all Feeling down, depressed, or hopeless: not at all Exam Narrative Exam Narrative: Gen.: Awake, alert, in no distress Head: Normocephalic, atraumatic ENT: Moist mucous membranes Respiratory: No respiratory distress Extremities: Superficial skin avulsion from the distal tip of the left middle finger, no bony exposure. No deep lacerations noted. Bleeding is minimal, venous at this time. No involvement of the fingernail Psych: Normal mood and affect Neuro: No focal neuro deficit Skin: Warm, dry, intact Constitutional Vital Signs, click to edit/add: Last Vital Signs Temp 97.6 F 04/04/24 17:29 Pulse 75 04/04/24 17:29 Resp 16 04/04/24 17:29 BP 173/107 H 04/04/24 17:29 Pulse Ox 96 04/04/24 17:29 O2 Del Method Room Air 04/04/24 17:29 Course Vital Signs Vital signs: Vital Signs Temperature 97.6 F 04/04/24 17:29 Pulse Rate 75 04/04/24 17:29 Respiratory Rate 16 04/04/24 17:29 Blood Pressure 173/107 H 04/04/24 17:29 Pulse Oximetry 96 04/04/24 17:29 Oxygen Delivery Method Room Air 04/04/24 17:29 Temperature 97.6 F 04/04/24 17:29 Pulse Rate 75 04/04/24 17:29 Respiratory Rate 16 04/04/24 17:29 Blood Pressure 173/107 H 04/04/24 17:29 Pulse Oximetry 96 04/04/24 17:29 Oxygen Delivery Method Room Air 04/04/24 17:29 Medical Decision Making MDM Narrative Medical decision making narrative: Tetanus updated, the area was cleansed and dressed with Gelfoam. Patient remains neurovascularly intact. He was encouraged to leave the dressing in place for a full 48 hours before removing with regular wound care. Follow-up with occupational health and return to the ER if symptoms change or worsen SUPERVISED APC VISIT, PHYSICIAN ATTESTATION: Based on the medical record the care appears appropriate. ? Medical Records Medical records reviewed: Yes I reviewed the patient's medical records Discharge Plan Discharge Chief Complaint: Skin/Abscess/Foreign Body Clinical Impression: Avulsion of skin of finger Patient Disposition: Home, Self-Care Time of Disposition Decision: 17:43 Condition: Good Print Language: Korean Instructions: Skin Avulsion (ED) Referrals: [facility] [Outside] - As soon as possible
[2024-04-04] MEDS: SURGIFOAM GEL SPONGE SIZE 100 1 EACH TOPICAL (17:57)
[2024-04-04] MEDS: ADACEL DIPH,PERTUSS(ACELL),TET VAC/PF 0.5 ML ADULT SYRINGE IM (17:57)
== END 2024-04-04 18:33 | disposition home or self-care (01) ==
PROVIDERS: Emergency Provider Emergency Medicine; PCP Family Medicine
DX: S61.203A Unspecified open wound of left middle finger without damage to nail, initial encounter (principal); W26.8XXA Contact with other sharp object(s), not elsewhere classified, initial encounter; Z23 Encounter for immunization
CPT/HCPCS: 90471; 90715; 99283